=== PATIENT | female | born 1940 | race Caucasian/White ===

== ENCOUNTER 2023-11-02 13:24 | Outpatient (REF) | payer MEDICARE, SELFPAY ==
[2023-11-02 14:40] LABS: Vitamin D 25 Total 30.4 ng/mL (30-100)
== END 2023-11-02 13:25 | disposition home or self-care (01) ==
LOC: LBN 13:24
PROVIDERS: PCP Family Medicine; Visit Provider Family Medicine
DX: D50.9 Iron deficiency anemia, unspecified (principal)
CPT/HCPCS: 82306

== ENCOUNTER 2023-11-03 04:45 | Outpatient (REF) | payer MEDICARE, SELFPAY ==
[2023-11-03 04:57] LABS: Abs Immature Grans 0.09 10^3/uL (0.0-0.06); Absolute Basophil Count 0.01 10^3/uL (0.0-0.2); Absolute Eosinophil Count 0.02 10^3/uL (0.0-0.7); Absolute Lymphocyte Count 1.14 10^3/uL (1.2-3.4); Absolute Monocyte Count 0.48 10^3/uL (0.1-0.8); Absolute Neutrophil Count 2.62 10^3/uL (1.2-6.7); Basophils % 0.2 %; Eosinophils % 0.5 %; HCT 27.8 % (36.0-46.0); Immature Grans % 2.1 %; Lymphocytes % 26.1 %; MCH 31.5 pg (27.0-33.0); MCHC 32.4 % (32.0-36.0); MCV 97 fL (80-95); MPV 10.2 fL (8.0-11.0); Neutrophils % 60.1 %; Platelet Count 151 10^3/uL (130-400); RBC 2.86 10^6/uL (3.93-5.22); RDW 14.2 % (11.7-14.6); RDW-SD 50.1 fL; WBC 4.36 10^3/uL (4.4-10.8)
[2023-11-03 05:08] LABS: ALT 11 U/L (14-59); AST 9 U/L (15-37); Albumin 2.9 g/dL (3.4-5.0); Alkaline Phosphatase 66 U/L (46-116); Anion Gap 6.1 mmol/L (3-11); BUN 20 mg/dL (7-18); Bilirubin, Total 0.3 mg/dL (0.2-1.0); CO2 29.9 mmol/L (21.0-32.0); CREATININE 0.6 mg/dL (0.55-1.02); Calcium 8.5 mg/dL (8.5-10.1); Chloride 104 mmol/L (98-107); Estimated GFR 90.12 (mL/min/1.73m2); Glucose 97 mg/dL (74-106); Potassium 3.9 mmol/L (3.5-5.1); Sodium 140 mmol/L (136-145); Total Protein 5.9 g/dL (6.4-8.2)
== END 2023-11-03 04:46 | disposition home or self-care (01) ==
LOC: LBN 04:45
PROVIDERS: PCP Family Medicine; Visit Provider Nurse Practitioner Family
DX: D45 Polycythemia vera (principal); D64.9 Anemia, unspecified; D70.9 Neutropenia, unspecified; E78.5 Hyperlipidemia, unspecified
CPT/HCPCS: 80048; 80053; 80061; 84443; 85025

== ENCOUNTER 2023-12-29 20:14 | Outpatient (REF) | payer MEDICARE, SELFPAY ==
[2023-12-29 21:08] LABS: HGB 10.1 g/dL (11.2-15.7); MCH 30.8 pg (27.0-33.0); MCHC 31.6 % (32.0-36.0); MCV 98 fL (80-95); MPV 10.4 fL (8.0-11.0); Platelet Count 191 10^3/uL (130-400); RBC 3.28 10^6/uL (3.93-5.22); RDW 14.8 % (11.7-14.6); RDW-SD 53.5 fL; WBC 4.21 10^3/uL (4.4-10.8)
== END 2023-12-29 20:15 | disposition home or self-care (01) ==
LOC: LBN 20:14
PROVIDERS: PCP Family Medicine; Visit Provider Family Medicine
DX: D50.9 Iron deficiency anemia, unspecified (principal)
CPT/HCPCS: 85027

== ENCOUNTER 2024-01-04 08:47 | Outpatient (REF) | payer MEDICARE, SELFPAY ==
[2024-01-04 18:30] LABS: Bilirubin Negative (Negative); Blood Trace-intact (Negative); Clarity Cloudy (Clear); Glucose Negative (Negative); Ketones Negative (Negative); Leukocyte Esterase Large (Negative); Nitrite Negative (Negative)
[2024-01-04 18:38] LABS: Bacteria Rare HPF (Negative); Crystals Negative HPF (Negative); Epithelial Cells Rare HPF (Negative); Mucus Negative (Negative); RBC 0-2 HPF (0-2); WBC 20-50 HPF (0-5)
[2024-01-04 18:39] LABS: C & S Indicated? C&S Done As Ordered; Casts Negative LPF (Negative)
== END 2024-01-04 08:48 | disposition home or self-care (01) ==
LOC: LBN 08:47
PROVIDERS: PCP Family Medicine; Visit Provider Family Medicine
DX: R68.89 Other general symptoms and signs (principal)
CPT/HCPCS: 87077; 81003; 81015; 87086; 87186

== ENCOUNTER 2024-01-05 10:20 | Emergency (ER) | payer MEDICARE, SELFPAY ==
[2024-01-05] VITALS (21 sets, daily range): BP systolic 88–113; BP diastolic 41–68; PULSE 68–138; RESP 15–27; TEMP 36.9; O2SAT 94–98
--- NOTE | 2024-01-05 10:45 | W.ED.GENAD ---
Discharge Plan Disposition Patient Disposition: Home Condition: Stable Discharge Details Clinical Impression: Headache Primary Care Provider: Jay Jay Villatoro ED Provider: Kunal Lewis Home Meds and New Rx's Prescriptions: Continued acetaminophen 325 mg capsule 650 mg PO Q4H PRN aspirin [Adult Aspirin Regimen] 81 mg tablet,delayed release (DR/EC) 81 mg PO DAILY atorvastatin 40 mg tablet 40 mg PO DAILY ergocalciferol (vitamin D2) [Drisdol] 1,250 mcg (50,000 unit) capsule 50,000 unit PO QWEEK bisacodyl 10 mg suppository 10 mg ME DAILY PRN Enema 19-7 gram/118 mL enema 118 ml ME DAILY PRN folic acid 1 mg tablet 1,000 mcg PO DAILY furosemide 20 mg tablet 20 mg PO DAILY methotrexate 2.5 mg/mL solution 7.5 mg PO QWEEK metoprolol succinate 25 mg tablet extended release 24 hr 25 mg PO DAILY magnesium hydroxide [Milk of Magnesia] 400 mg/5 mL suspension 5 ml PO DAILY PRN polyethylene glycol 3350 [ClearLax] 17 gram/dose powder 4.25 g PO ONCE pantoprazole 40 mg tablet,delayed release (DR/EC) 40 mg PO DAILY rivaroxaban 20 mg tablet 20 mg PO DAILY Rx Instructions: must administer with evening meal sertraline 150 mg capsule 150 mg PO DAILY cyanocobalamin (vitamin B-12) 1,000 mcg capsule 1,000 mcg PO DAILY Discharge Instructions Additional Instructions: Your blood work and imaging did not show any concerning findings at this time Follow-up with your primary care provider within 1 to 2 weeks Feel more ill or have new symptoms such as high fevers or persistent vomiting return to the emergency department HPI General Mode of arrival: EMS. Date/Time Provider Initiated Documentation: 01/05/24 10:33. Limitations to Documentation: no limitations. Information obtained by: patient. History of Present Illness 83 year old F presents to the emergency department with the chief complaint of headache, described as mild, Quality is described as aching, Patient neck. Patient started experiencing this week(s) (1) and it has been constant. No relieving factors improve symptom(s), No exacerbating factors reported . Patient notes denies chest pain and shortness of breath. Patient did receive the following treatments prior to arrival, none Related Data Home Medications ?Medication ?Instructions ?Recorded ?Confirmed acetaminophen 325 mg capsule 650 mg PO Q4H PRN 01/05/24 01/05/24 aspirin 81 mg tablet,delayed 81 mg PO DAILY 01/05/24 01/05/24 release (Adult Aspirin Regimen) atorvastatin 40 mg tablet 40 mg PO DAILY 01/05/24 01/05/24 bisacodyl 10 mg rectal suppository 10 mg ME DAILY PRN 01/05/24 01/05/24 cyanocobalamin (vitamin B-12) 1,000 mcg PO DAILY 01/05/24 01/05/24 1,000 mcg capsule ergocalciferol (vitamin D2) 1,250 50,000 unit PO QWEEK 01/05/24 01/05/24 mcg (50,000 unit) capsule (Drisdol) folic acid 1 mg tablet 1,000 mcg PO DAILY 01/05/24 01/05/24 furosemide 20 mg tablet 20 mg PO DAILY 01/05/24 01/05/24 magnesium hydroxide 400 mg/5 mL 5 ml PO DAILY PRN 01/05/24 01/05/24 oral suspension (Milk of Magnesia) methotrexate 2.5 mg/mL oral 7.5 mg PO QWEEK 01/05/24 01/05/24 solution metoprolol succinate 25 mg 25 mg PO DAILY 01/05/24 01/05/24 tablet,extended release 24 hr pantoprazole 40 mg tablet,delayed 40 mg PO DAILY 01/05/24 01/05/24 release polyethylene glycol 3350 17 4.25 g PO ONCE 01/05/24 01/05/24 gram/dose oral powder (ClearLax) rivaroxaban 20 mg tablet 20 mg PO DAILY 01/05/24 01/05/24 sertraline 150 mg capsule 150 mg PO DAILY 01/05/24 01/05/24 sodium phosphates 19 gram-7 118 ml ME DAILY PRN 01/05/24 01/05/24 gram/118 mL enema (Enema) Allergies Allergy/AdvReac Type Severity Reaction Status Date / Time ampicillin Allergy Unknown Unknown Verified 01/05/24 10:45 codeine Allergy Unknown Unknown Verified 01/05/24 10:45 hydrocodone Allergy Unknown Unknown Verified 01/05/24 10:45 metoprolol Allergy Unknown Unknown Verified 01/05/24 10:45 morphine Allergy Unknown Unknown Verified 01/05/24 10:45 Penicillins Allergy Unknown Unknown Verified 01/05/24 10:45 shellfish derived Allergy Unknown Unknown Verified 01/05/24 10:45 oyster shell Allergy Unknown Unknown Uncoded 01/05/24 10:45 General Stated Complaint: Headache PIPPA: 3 Review of Systems All systems reviewed & are unremarkable except as noted in HPI and below Constitutional Constitutional: Denies chills, Denies fever(s) and Denies weakness Eyes Eyes: Denies loss of vision Cardiovascular Cardiovascular: Denies chest pain and Denies dyspnea Respiratory Respiratory: Denies cough and Denies dyspnea Gastrointestinal Gastrointestinal: Denies abdominal pain, Denies nausea and Denies vomiting Integumentary/Breasts Skin/Breast: Denies rash Neurologic Neurologic: Denies loss of vision and Denies weakness Exam Const General: no acute distress Orientation: alert HENMT Head: normal to inspection Ears: external ears normal General nose exam: external nose normal Mouth: moist mucous membranes Eyes General: appearance normal, both eyes and all related structures Neck Neck: normal visual inspection Resp Effort & Inspection: normal respiratory effort and able to speak in complete sentences Auscultation: clear to auscultation bilaterally Cardio Jugular venous pressure: no JVD Rate: regular rate GI Palpation: soft and nontender Skin General skin exam: no rashes or lesions noted Neuro General: patient alert and patient oriented x3 Extrem General: normal to inspection Psych Mental Status: mental status grossly normal Course Vital Signs Vital signs: Vital Signs Temperature 36.9 C 01/05/24 10:30 Pulse 78 01/05/24 10:30 Respiratory Rate 16 01/05/24 10:30 Blood Pressure 113/47 L 01/05/24 10:30 Pulse Oximetry 98 01/05/24 10:30 Temperature 36.9 C 01/05/24 10:30 Temperature Source Temporal Artery Scan 01/05/24 10:30 Pulse 78 01/05/24 10:30 Respiratory Rate 16 01/05/24 10:30 Respiratory Effort Normal 01/05/24 10:32 Blood Pressure 113/47 L 01/05/24 10:30 Blood Pressure Position Supine 01/05/24 10:30 Pulse Oximetry 98 01/05/24 10:30 Oxygen Delivery Method Room Air 01/05/24 10:30 Oxygen Flow Rate 0 01/05/24 10:30 Pain Level 6 01/05/24 10:38 Medical Decision Making 83-year-old female who resides at [facility] and rehab comes in with reported lethargy at rehab and also has been complaining of headaches. She says that she is in rehab but she has been having falls at home. She had a fall where she hit her head and was seen at another ER and then was transferred to rehab once stable. She says the headache is mild and localized to the front of her head. She also has some right lateral neck pain. She has no meningismus, no's neck stiffness, no signs of trauma to the head. She has no focal deficits, she does have some right-sided facial droop but she says that this is chronic and unchanged for her. Her speech is clear. She is oriented x 3. She has no chest pain or abdominal pain. Pain is not the worst in her life. I suspect tension headache or postconcussion headaches. Will obtain CT head and C-spine to exclude traumatic findings. She has no findings on exam or history to suggest [employer] infection. Given the reported lethargy earlier we will check a CBC and CMP. Labs and imaging show no acute findings, she is now asymptomatic and has no complaints. She is stable for discharge advised follow-up with PCP and return precautions given. Differential Diagnosis Differential Diagnosis: Tension headache, hemorrhage, anemia Imaging Data Radiologic Study: Attestation: I personally reviewed and interpreted this imaging study as follows: Imaging: X-Ray Radiologist's impression: no acute findings Lab Data Lab results reviewed: Yes I reviewed the patient's lab results. Quality:[facility] Health Related Social Needs: No Data to Display PFSH All Active Problems (Updated 01/05/24 @ 12:33 by Kunal Lewis MD) Headache (Acute) Social History Smoking/Tobacco Use Status: Never Smoking risk assessment performed?: Yes Alcohol Intake: former Drug use: Never Substance use type: does not use Housing: apartment Do you feel safe at home: Yes Do you feel safe in your relationship?: Yes
--- NOTE | 2024-01-05 11:10 | DI.CT_ITS ---
Exam(s) CT HEAD CERVICAL SPINE WO EXAM: CT HEAD CERVICAL SPINE WO CLINICAL HISTORY: fall, pain. TECHNIQUE: Imaging Protocol: Axial computed tomography images with coronal and sagittal reformatted images were created and reviewed COMPARISON: No exams were available for comparison FINDINGS: CT Head: Ventricles and Extra axial spaces: Normal in size and morphology for the patient's age. Hemorrhage: None. Cerebral parenchyma: There are areas of decreased attenuation in the white matter consistent with chr onic microvascular ischemic disease. No evidence of a mass effect or acute territorial infarct are s een at this time. Midline shift: None. Brainstem/Cerebellum: Normal. Calvarium: Normal. Visualized Paranasal sinuses/Mastoids: Clear. Soft Tissues: Unremarkable. CT Cervical Spine: Bones: No acute fracture or subluxation. Age-appropriate degenerative changes are present. Soft Tissues: Multiple nodules are seen in the right lobe of the thyroid gland. The largest measures 1.3 cm. Nonemergent thyroid ultrasound may be obtained for further evaluation. Lung Apices: Clear. IMPRESSION: 1. No acute intracranial process. 2. No acute fracture or subluxation in the cervical spine. RADIATION DOSE DELIVERED: Total DLP DATA REPOSITORY: All CT scans at this facility are submitted to the National Radiology Data Registry (NRDR) Dose Index Registry (DIR) with the [employer] (A[employer]). RADIATION OPTIMIZATION: All CT scans at this facility use at least one of these dose optimization te chniques: automated exposure control; mA and/or kV adjustment per patient size (includes targeted exa ms where dose is matched to clinical indication); or iterative reconstruction.
[2024-01-05 11:48] LABS: Abs Immature Grans 0.06 10^3/uL (0.0-0.06); Absolute Basophil Count 0.01 10^3/uL (0.0-0.2); Absolute Eosinophil Count 0.03 10^3/uL (0.0-0.7); Absolute Lymphocyte Count 0.72 10^3/uL (1.2-3.4); Absolute Monocyte Count 0.26 10^3/uL (0.1-0.8); Absolute Neutrophil Count 2.58 10^3/uL (1.2-6.7); Basophils % 0.3 %; Eosinophils % 0.8 %; HCT 31.8 % (36.0-46.0); HGB 9.9 g/dL (11.2-15.7); Immature Grans % 1.6 %; Lymphocytes % 19.7 %; MCH 30.6 pg (27.0-33.0); MCHC 31.1 % (32.0-36.0); MCV 98 fL (80-95); MPV 9.9 fL (8.0-11.0); Monocytes % 7.1 %; Neutrophils % 70.5 %; Platelet Count 153 10^3/uL (130-400); RBC 3.24 10^6/uL (3.93-5.22); RDW 15.1 % (11.7-14.6); RDW-SD 53.5 fL; WBC 3.66 10^3/uL (4.4-10.8)
[2024-01-05 12:21] LABS: ALT 16 U/L (14-59); AST 12 U/L (15-37); Albumin 3.4 g/dL (3.4-5.0); Alkaline Phosphatase 79 U/L (46-116); Anion Gap 7.6 mmol/L (3-11); BUN 22 mg/dL (7-18); Bilirubin, Total 0.39 mg/dL (0.2-1.0); CO2 30.4 mmol/L (21.0-32.0); CREATININE 0.9 mg/dL (0.55-1.02); Calcium 9.1 mg/dL (8.5-10.1); Chloride 106 mmol/L (98-107); Estimated GFR 64.23 (mL/min/1.73m2); Glucose 114 mg/dL (74-106); Magnesium 1.9 mg/dL (1.8-2.4); Potassium 3.6 mmol/L (3.5-5.1); Sodium 144 mmol/L (136-145); Total Protein 7.3 g/dL (6.4-8.2)
== END 2024-01-05 13:02 | disposition home or self-care (01) ==
PROVIDERS: Emergency Provider Emergency Medicine; PCP Family Medicine
DX: R51.9 Headache, unspecified (principal); M54.2 Cervicalgia; Z79.01 Long term (current) use of anticoagulants; Z79.82 Long term (current) use of aspirin
CPT/HCPCS: 80053; 99284; 70450; 72125; 83735; 85025; 99283

== ENCOUNTER 2024-01-05 15:11 | Emergency (ER) | payer MEDICARE, SELFPAY ==
[2024-01-05 15:13] VITALS: BP 129/110; PULSE 68; RESP 20; TEMP 36; O2SAT 97
--- NOTE | 2024-01-05 15:15 | DI.MRI_ITS ---
Exam(s) MR BRAIN WO EXAM: MR BRAIN WO CLINICAL HISTORY: ?cva TECHNIQUE: Multiplanar multisequence MRI of the brain was performed. COMPARISON: CT CT HEAD CERVICAL SPINE WO from 01/05/2024 FINDINGS: CEREBRAL PARENCHYMA: There is no evidence of intracranial hemorrhage, mass effect, or shift of midline structures. There are no extra-axial fluid collections. Ventricular size is commensurate with the size of the overlyin g cortical sulci in this elderly patient/symmetrical atrophy. There is no significant focal signal abnormality in the cerebellar hemispheres nor within the alfonso, m idbrain, and thalami. There is abundant bilateral periventricular signal abnormality consistent chronic small vessel diseas e, this not exhibiting restricted diffusion. However, there is also relatively symmetrical FLAIR juno ght signal abnormality of the cortices of the frontal and parietal lobes bilaterally, these areas als o exhibiting restricted diffusion bilaterally on DWI. PITUITARY GLAND: No mass nor parasellar abnormality. No obvious abnormality in the cavernous sinuses. FLOW VOIDS: The expected flow void are noted. No evidence of obvious aneurysm nor obvious vascular ma lformation. PARANASAL SINUSES: No significant acute findings. Mild mucous noted in the left sphenoid sinus. No fluid levels in the paranasal sinuses nor evidence of mastoid effusions. ORBITS: Bilateral prior cataract surgery. No acute findings in the orbits. IMPRESSION: Relative symmetrical gyriform peripheral restricted diffusion both frontal and parietal lobes concern ing for acute atypical pathology. Causes of gyriform restricted diffusion include but are not limite d to vascular occlusion and may be related to metabolic (hypoglycemia/hyperammonemia) and infectious etiologies such as herpes encephalitis. Also may be related to hypoxic-ischemic encephalopathy which is usually a devastating neurologic condition caused by a myriad of etiologies including cardiac arr est, hypotension, trauma, drowning, and asphyxiation. Report called by myself to ER physician 01/05/2024 4:35 p.m. DATA REPOSITORY:
--- NOTE | 2024-01-05 15:22 | ED.GENADUL_ITS ---
Discharge Plan Discharge Details Chief Complaint: CVA/TIA Clinical Impression: Unsteadiness Primary Care Provider: Jay Jay Villatoro ED Provider: Kunal Lewis Home Meds and New Rx's Prescriptions: No Action acetaminophen 325 mg capsule 650 mg PO Q4H PRN aspirin [Adult Aspirin Regimen] 81 mg tablet,delayed release (DR/EC) 81 mg PO DAILY atorvastatin 40 mg tablet 40 mg PO DAILY ergocalciferol (vitamin D2) [Drisdol] 1,250 mcg (50,000 unit) capsule 50,000 unit PO QWEEK bisacodyl 10 mg suppository 10 mg [place] DAILY PRN Enema 19-7 gram/118 mL enema 118 ml [place] DAILY PRN folic acid 1 mg tablet 1,000 mcg PO DAILY furosemide 20 mg tablet 20 mg PO DAILY methotrexate 2.5 mg/mL solution 7.5 mg PO QWEEK metoprolol succinate 25 mg tablet extended release 24 hr 25 mg PO DAILY magnesium hydroxide [Milk of Magnesia] 400 mg/5 mL suspension 5 ml PO DAILY PRN polyethylene glycol 3350 [ClearLax] 17 gram/dose powder 4.25 g PO ONCE pantoprazole 40 mg tablet,delayed release (DR/EC) 40 mg PO DAILY rivaroxaban 20 mg tablet 20 mg PO DAILY Rx Instructions: must administer with evening meal sertraline 150 mg capsule 150 mg PO DAILY cyanocobalamin (vitamin B-12) 1,000 mcg capsule 1,000 mcg PO DAILY HPI General Mode of arrival: EMS . Date/Time Provider Initiated Documentation: 01/05/24 15:11 . Information obtained by: patient and EMS . History of Present Illness 83 year old F presents to the emergency department with the chief complaint of unsteadiness, described as moderate, and it has been constant. No relieving factors improve symptom(s), No exacerbating factors reported . Patient notes no other symptoms.; denies chest pain and fever/chills. Patient did receive the following treatments prior to arrival, none Related Data Home Medications ?Medication ?Instructions ?Recorded ?Confirmed acetaminophen 325 mg capsule 650 mg PO Q4H PRN 01/05/24 01/05/24 aspirin 81 mg tablet,delayed 81 mg PO DAILY 01/05/24 01/05/24 release (Adult Aspirin Regimen) atorvastatin 40 mg tablet 40 mg PO DAILY 01/05/24 01/05/24 bisacodyl 10 mg rectal suppository 10 mg [place] DAILY PRN 01/05/24 01/05/24 cyanocobalamin (vitamin B-12) 1,000 mcg PO DAILY 01/05/24 01/05/24 1,000 mcg capsule ergocalciferol (vitamin D2) 1,250 50,000 unit PO QWEEK 01/05/24 01/05/24 mcg (50,000 unit) capsule (Drisdol) folic acid 1 mg tablet 1,000 mcg PO DAILY 01/05/24 01/05/24 furosemide 20 mg tablet 20 mg PO DAILY 01/05/24 01/05/24 magnesium hydroxide 400 mg/5 mL 5 ml PO DAILY PRN 01/05/24 01/05/24 oral suspension (Milk of Magnesia) methotrexate 2.5 mg/mL oral 7.5 mg PO QWEEK 01/05/24 01/05/24 solution metoprolol succinate 25 mg 25 mg PO DAILY 01/05/24 01/05/24 tablet,extended release 24 hr pantoprazole 40 mg tablet,delayed 40 mg PO DAILY 01/05/24 01/05/24 release polyethylene glycol 3350 17 4.25 g PO ONCE 01/05/24 01/05/24 gram/dose oral powder (ClearLax) rivaroxaban 20 mg tablet 20 mg PO DAILY 01/05/24 01/05/24 sertraline 150 mg capsule 150 mg PO DAILY 01/05/24 01/05/24 sodium phosphates 19 gram-7 118 ml [place] DAILY PRN 01/05/24 01/05/24 gram/118 mL enema (Enema) Allergies Allergy/AdvReac Type Severity Reaction Status Date / Time ampicillin Allergy Unknown Unknown Verified 01/05/24 10:45 codeine Allergy Unknown Unknown Verified 01/05/24 10:45 hydrocodone Allergy Unknown Unknown Verified 01/05/24 10:45 metoprolol Allergy Unknown Unknown Verified 01/05/24 10:45 morphine Allergy Unknown Unknown Verified 01/05/24 10:45 Penicillins Allergy Unknown Unknown Verified 01/05/24 10:45 shellfish derived Allergy Unknown Unknown Verified 01/05/24 10:45 oyster shell Allergy Unknown Unknown Uncoded 01/05/24 10:45 General Stated Complaint: CVA/TIA PIPPA: 3 Review of Systems All systems reviewed & are unremarkable except as noted in HPI and below Constitutional Constitutional: Denies chills and Denies fever(s) Eyes Eyes: Denies loss of vision Cardiovascular Cardiovascular: Denies chest pain and Denies dyspnea Respiratory Respiratory: Denies cough and Denies dyspnea Gastrointestinal Gastrointestinal: Denies abdominal pain, Denies nausea and Denies vomiting Musculoskeletal Musculoskeletal: Denies joint swelling Neurologic Neurologic: Denies loss of vision Exam Const General: no acute distress Orientation: alert HENMT Head: normal to inspection Ears: external ears normal General nose exam: external nose normal Mouth: moist mucous membranes Eyes General: appearance normal, both eyes and all related structures Neck Neck: normal visual inspection Resp Effort & Inspection: normal respiratory effort and able to speak in complete sentences Cardio Rate: regular rate Skin General skin exam: no rashes or lesions noted Neuro General: patient alert and patient oriented x3 Extrem General: normal to inspection Psych Mental Status: mental status grossly normal Course Vital Signs Vital signs: Vital Signs Temperature 36.0 C L 01/05/24 15:13 Pulse 68 01/05/24 15:13 Respiratory Rate 20 01/05/24 15:13 Blood Pressure 129/110 H 01/05/24 15:13 Pulse Oximetry 97 01/05/24 15:13 Temperature 36.0 C L 01/05/24 15:13 Temperature Source Tympanic 01/05/24 15:13 Pulse 68 01/05/24 15:13 Respiratory Rate 20 01/05/24 15:13 Blood Pressure 129/110 H 01/05/24 15:13 Blood Pressure Position Sitting 01/05/24 15:13 Pulse Oximetry 97 01/05/24 15:13 Oxygen Delivery Method Room Air 01/05/24 15:13 Oxygen Flow Rate 0 01/05/24 15:13 Medical Decision Making 83-year-old female with a history of heart failure with reduced ejection fraction, COPD, coronary artery disease, rheumatoid arthritis, A-fib, PE, who comes in with EMS from rehab again with complaints of unsteadiness. Patient has chronic issues with unsteadiness and falls and now resides at [facility] and rehab due to this. They were concerned that she may have had a stroke as she has had 3 days of increased unsteadiness so sent her here. Patient currently denies any pain, she says she feels unsteady when she tries to stand with is not new for her. She does have ataxia when trying to do [id number] but she says she does not believe this is a new finding for her. I doubt acute cva given it seems her findings are chronic based on chart review but will evaluate further with MRI MRI shows restrictive diffusion of bilateral frontal and parietal lobes. She is stable, has no fevers and no meningismus so doubt striker off infection and she is anticoagulated so unfortunately can't do an LP. Will have neurology consult done. Differential Diagnosis Differential Diagnosis: chronic unsteadiness, recurrent falls, cva Imaging Data Radiologic Study: Attestation: I personally reviewed and interpreted this imaging study as follows: Imaging: MRI Radiologist's impression: Patient Name: Kaitlin Mendenhall Unit #: [id number] Loc: ER Ordering Provider: Kunal Lewis M.D. Status: [facility] Primary Care Provider: Jay Jay Villatoro Date of Exam: 01/05/24 Sex: F Admission Date: 01/05/24 : 1940 Age: 83 Exam(s) MR BRAIN WO EXAM: MR BRAIN WO CLINICAL HISTORY: ?cva TECHNIQUE: Multiplanar multisequence MRI of the brain was performed. COMPARISON: CT CT HEAD CERVICAL SPINE WO from 01/05/2024 FINDINGS: CEREBRAL PARENCHYMA: There is no evidence of intracranial hemorrhage, mass effect, or shift of midline structures. There are no extra-axial fluid collections. Ventricular size is commensurate with the size of the overlying cortical sulci in this elderly patient/symmetrical atrophy. There is no significant focal signal abnormality in the cerebellar hemispheres nor within the alfonso, midbrain, and thalami. There is abundant bilateral periventricular signal abnormality consistent chronic small vessel disease, this not exhibiting restricted diffusion. However, there is also relatively symmetrical FLAIR bright signal abnormality of the cortices of the frontal and parietal lobes bilaterally, these areas also exhibiting restricted diffusion bilaterally on DWI. PITUITARY GLAND: No mass nor parasellar abnormality. No obvious abnormality in the cavernous sinuses. FLOW VOIDS: The expected flow void are noted. No evidence of obvious aneurysm nor obvious vascular malformation. PARANASAL SINUSES: No significant acute findings. Mild mucous noted in the left sphenoid sinus. No fluid levels in the paranasal sinuses nor evidence of mastoid effusions. ORBITS: Bilateral prior cataract surgery. No acute findings in the orbits. IMPRESSION: Relative symmetrical gyriform peripheral restricted diffusion both frontal and parietal lobes concerning for acute atypical pathology. Causes of gyriform restricted diffusion include but are not limited to vascular occlusion and may be related to metabolic (hypoglycemia/hyperammonemia) and infectious etiologies such as herpes encephalitis. Also may be related to hypoxic-ischemic encephalopathy which is usually a devastating neurologic condition caused by a myriad of etiologies including cardiac arrest, hypotension, trauma, drowning, and asphyxiation. Quality:[facility] Health Related Social Needs: No Data to Display PFSH All Active Problems (Updated 01/05/24 @ 16:50 by Kunal Lewis MD) Unsteadiness (Acute) Headache (Acute) Social History Smoking/Tobacco Use Status: Never Smoking risk assessment performed?: Yes Alcohol Intake: former Drug use: Never Substance use type: does not use Housing: apartment Do you feel safe at home: Yes Do you feel safe in your relationship?: Yes
[2024-01-05 15:36] VITALS: O2SAT 94
[2024-01-05 15:46] VITALS: BP 108/49; PULSE 63
[2024-01-05 16:40] VITALS: BP 122/75; PULSE 67; TEMP 37; O2SAT 98
--- NOTE | 2024-01-05 18:27 | ED.PROG_ITS ---
Date of service: 01/05/24 Time of Service: 18:27 Medical Decision Making Patient signed out to me pending teleneurology evaluation. Patient with reported increased frequency and falling but has history of same. Was seen earlier in the day with negative head CT and labs. Was sent back by [facility] provider who had concerns for cerebellum stroke. MRI was performed. There was concern for restricted diffusion in the frontal and parietal lobes bilaterally. No evidence of cerebellar or brainstem abnormality. Patient has been seen by neurology. Discussed case, exam findings, imaging findings with neurologist. Patient has NIH score of 0. MRI findings were not felt to be related to acute injury. Recommend return to rehab with continued PT and strengthening in regards to gait, follow-up with neurology locally as outpatient. Patient will be returned to rehab. Quality:SDHI Health Related Social Needs: No Data to Display Sign Out Sign Out Data: Sign Out Comment: Patient resides at rehab, has A-fib on rivaroxaban is already on aspirin per med reconciliation, has had increased unsteadiness over the last 3 days and had a fall [address] head and C-spine were negative, had an MRI due to increased unsteadiness and question new ataxia with finger-nose touch which showed restrictive bilateral findings in the frontal and parietal lobes. Nothing in the brainstem. Having teleneurology weigh in. Disposition based on neurology recs. Last updated by Kunal Lewis MD at 01/05/24 16:57 Discharge Plan Disposition Patient Disposition: [facility] Discharge Details Clinical Impression: Unsteadiness, Frequent falls, Abnormal MRI of head Primary Care Provider: Jay Jay Villatoro ED Provider: Kp Mustafa Goessel Meds and New Rx's Prescriptions: Continued acetaminophen 325 mg capsule 650 mg PO Q4H PRN aspirin [Adult Aspirin Regimen] 81 mg tablet,delayed release (DR/EC) 81 mg PO DAILY atorvastatin 40 mg tablet 40 mg PO DAILY ergocalciferol (vitamin D2) [Drisdol] 1,250 mcg (50,000 unit) capsule 50,000 unit PO QWEEK bisacodyl 10 mg suppository 10 mg SD DAILY PRN Enema 19-7 gram/118 mL enema 118 ml SD DAILY PRN folic acid 1 mg tablet 1,000 mcg PO DAILY furosemide 20 mg tablet 20 mg PO DAILY methotrexate 2.5 mg/mL solution 7.5 mg PO QWEEK metoprolol succinate 25 mg tablet extended release 24 hr 25 mg PO DAILY magnesium hydroxide [Milk of Magnesia] 400 mg/5 mL suspension 5 ml PO DAILY PRN polyethylene glycol 3350 [ClearLax] 17 gram/dose powder 4.25 g PO ONCE pantoprazole 40 mg tablet,delayed release (DR/EC) 40 mg PO DAILY rivaroxaban 20 mg tablet 20 mg PO DAILY Rx Instructions: must administer with evening meal sertraline 150 mg capsule 150 mg PO DAILY cyanocobalamin (vitamin B-12) 1,000 mcg capsule 1,000 mcg PO DAILY Discharge Instructions Additional Instructions: You had a brain MRI which shows changes in the frontal and parietal lobes but no evidence of stroke. You were seen by neurology via video. Your case has been discussed with neurology. Recommendation is to return to rehab for further strengthening and gait training. Follow-up with local neurology in regards to MRI findings. Return to ED for any acute neurologic change, fall with injury, other concerns.
[2024-01-05 18:31] VITALS: BP 109/87; PULSE 87; RESP 18; TEMP 36.5; O2SAT 97
== END 2024-01-05 19:28 | disposition skilled nursing facility (03) ==
PROVIDERS: Emergency Provider Emergency Medicine; PCP Family Medicine
DX: R26.81 Unsteadiness on feet (principal); J44.9 Chronic obstructive pulmonary disease, unspecified; I25.10 Atherosclerotic heart disease of native coronary artery without angina pectoris; M06.9 Rheumatoid arthritis, unspecified; I48.91 Unspecified atrial fibrillation; R29.700 NIHSS score 0; Z86.711 Personal history of pulmonary embolism; Z79.01 Long term (current) use of anticoagulants; Z79.82 Long term (current) use of aspirin
CPT/HCPCS: 00123; 99284; 70551

== ENCOUNTER 2024-03-15 14:26 | Inpatient (IN) | payer MEDICARE, SELFPAY ==
[2024-03-15] VITALS (40 sets, daily range): BP systolic 110–158; BP diastolic 46–109; PULSE 70–96; RESP 13–23; TEMP 36.1–36.8; O2SAT 95–100
--- NOTE | 2024-03-15 14:29 | W.ED.GENAD ---
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 Primary Care Provider: Jay Jay Villatoro ED Provider: William Lewis Home Meds and New Rx's Prescriptions: No Action acetaminophen 325 mg capsule 650 mg PO Q4H PRN aspirin [Adult Aspirin Regimen] 81 mg tablet,delayed release (DR/EC) 81 mg PO DAILY atorvastatin 40 mg tablet 40 mg PO DAILY ergocalciferol (vitamin D2) [Drisdol] 1,250 mcg (50,000 unit) capsule 50,000 unit PO QWEEK bisacodyl 10 mg suppository 10 mg MA DAILY PRN Enema 19-7 gram/118 mL enema 118 ml MA DAILY PRN folic acid 1 mg tablet 1,000 mcg PO DAILY furosemide 20 mg tablet 20 mg PO DAILY methotrexate 2.5 mg/mL solution 7.5 mg PO QWEEK metoprolol succinate 25 mg tablet extended release 24 hr 25 mg PO DAILY magnesium hydroxide [Milk of Magnesia] 400 mg/5 mL suspension 5 ml PO DAILY PRN polyethylene glycol 3350 [ClearLax] 17 gram/dose powder 4.25 g PO ONCE pantoprazole 40 mg tablet,delayed release (DR/EC) 40 mg PO DAILY rivaroxaban 20 mg tablet 20 mg PO DAILY Rx Instructions: must administer with evening meal sertraline 150 mg capsule 150 mg PO DAILY cyanocobalamin (vitamin B-12) 1,000 mcg capsule 1,000 mcg PO DAILY HPI General Date/Time Provider Initiated Documentation: 03/15/24 14:28. HPI Narrative: 83-year-old female with a history of heart failure with reduced ejection fraction, COPD, coronary artery disease, rheumatoid arthritis, A-fib, PE on rivaroxaban presents with low hemoglobin. She is coming from rehab. She is apparently telling me that she has had a few episodes of bloody stools over the last month and darker stools. She had outpatient labs done today that showed a low blood count. She denies any other bleeding. Still taking a blood thinner and rivaroxaban. Denying any other complaints. She otherwise feels well. Related Data Home Medications ?Medication ?Instructions ?Recorded ?Confirmed acetaminophen 325 mg capsule 650 mg PO Q4H PRN 01/05/24 03/15/24 aspirin 81 mg tablet,delayed 81 mg PO DAILY 01/05/24 03/15/24 release (Adult Aspirin Regimen) atorvastatin 40 mg tablet 40 mg PO DAILY 01/05/24 03/15/24 bisacodyl 10 mg rectal suppository 10 mg MA DAILY PRN 01/05/24 03/15/24 cyanocobalamin (vitamin B-12) 1,000 mcg PO DAILY 01/05/24 03/15/24 1,000 mcg capsule ergocalciferol (vitamin D2) 1,250 50,000 unit PO QWEEK 01/05/24 03/15/24 mcg (50,000 unit) capsule (Drisdol) folic acid 1 mg tablet 1,000 mcg PO DAILY 01/05/24 03/15/24 furosemide 20 mg tablet 20 mg PO DAILY 01/05/24 03/15/24 magnesium hydroxide 400 mg/5 mL 5 ml PO DAILY PRN 01/05/24 03/15/24 oral suspension (Milk of Magnesia) methotrexate 2.5 mg/mL oral 7.5 mg PO QWEEK 01/05/24 03/15/24 solution metoprolol succinate 25 mg 25 mg PO DAILY 01/05/24 03/15/24 tablet,extended release 24 hr pantoprazole 40 mg tablet,delayed 40 mg PO DAILY 01/05/24 03/15/24 release polyethylene glycol 3350 17 4.25 g PO ONCE 01/05/24 03/15/24 gram/dose oral powder (ClearLax) rivaroxaban 20 mg tablet 20 mg PO DAILY 01/05/24 03/15/24 sertraline 150 mg capsule 150 mg PO DAILY 01/05/24 03/15/24 sodium phosphates 19 gram-7 118 ml MA DAILY PRN 01/05/24 03/15/24 gram/118 mL enema (Enema) Allergies Allergy/AdvReac Type Severity Reaction Status Date / Time ampicillin Allergy Unknown Unknown Verified 01/05/24 10:45 codeine Allergy Unknown Unknown Verified 01/05/24 10:45 hydrocodone Allergy Unknown Unknown Verified 01/05/24 10:45 metoprolol Allergy Unknown Unknown Verified 01/05/24 10:45 morphine Allergy Unknown Unknown Verified 01/05/24 10:45 Penicillins Allergy Unknown Unknown Verified 01/05/24 10:45 shellfish derived Allergy Unknown Unknown Verified 01/05/24 10:45 oyster shell Allergy Unknown Unknown Uncoded 01/05/24 10:45 General Stated Complaint: Dizzy/Sync PIPPA: 3 Review of Systems Constitutional Constitutional: Denies chills, Denies fever(s) and Denies headache(s) Eyes Eyes: Denies change in vision ENT Ears, Nose, Mouth, and Throat: Denies headache(s) and Denies odynophagia Cardiovascular Cardiovascular: Denies chest pain and Denies dyspnea Respiratory Respiratory: Denies dyspnea Gastrointestinal Gastrointestinal: Denies abdominal pain, Reports hematochezia, Denies diarrhea, Denies nausea, Denies odynophagia and Denies vomiting Genitourinary Genitourinary: Denies dysuria Musculoskeletal Musculoskeletal: Denies myalgias Integumentary/Breasts Skin/Breast: Denies changing lesions Neurologic Neurologic: Denies behavioral changes and Denies headache(s) Psychiatric Psychiatric: Denies behavioral changes Endocrine Endocrine: Denies heat intolerance Hematologic/Lymphatic Hematologic/Lymphatic: Denies lymphadenopathy Exam Const General: cooperative Nutritional Appearance: average body habitus Orientation: alert, awake and oriented x3 HENMT Head: normal to inspection Ears: external ears normal Mouth: moist mucous membranes Eyes Pupils: PERRL EOM: EOM intact bilaterally and No nystagmus Neck Neck: full ROM and no tracheal deviation Chest Chest: normal inspection of the chest Resp Auscultation: clear to auscultation bilaterally Cardio Rate: regular rate Rhythm: regular rhythm GI Inspection: normal to inspection Palpation: soft, no guarding, not rigid and nontender Back/Spine/Pelvis Back: No no CVA tenderness Thoracic/Lumbar Spine: thoracic and lumbar spine normal to inspection Skin General skin exam: no rashes or lesions noted Neuro General: patient alert, patient awake and patient oriented x3 Cranial Nerves: CN's II-XI intact bilaterally, PERRL and no nystagmus Cognition: normal cognition Motor: muscle tone normal throughout and strength 5/5 throughout Sensory Exam: no sensory deficits noted Extrem General: normal to inspection Course Consultations Consultation #1: surgery dr reina el Consultation #2: hospitalist Vital Signs Vital signs: Vital Signs Temperature 36.6 C 03/15/24 14:25 Pulse 88 03/15/24 14:25 Respiratory Rate 15 03/15/24 14:25 Blood Pressure 125/57 L 03/15/24 14:25 Pulse Oximetry 100 10/03/24 14:25 Temperature 36.6 C 03/15/24 14:25 Temperature Source Oral 03/15/24 14:25 Pulse 88 03/15/24 14:25 Respiratory Rate 15 03/15/24 14:25 Blood Pressure 125/57 L 03/15/24 14:25 Blood Pressure Position Sitting 03/15/24 14:25 Pulse Oximetry 100 03/15/24 14:25 Oxygen Delivery Method Room Air 03/15/24 14:25 Oxygen Flow Rate 0 03/15/24 14:25 Medical Decision Making 83-year-old female with a history of heart failure with reduced ejection fraction, COPD, coronary artery disease, rheumatoid arthritis, A-fib, PE on rivaroxaban presents with low hemoglobin. Reviewed outpatient labs and hemoglobin to 6.1. Confirmed with repeat hemoglobin here. She does not have any history of bleeding other than the intermittent medic easier. None recently. Performed rectal exam and has brown stool that is Hemoccult positive. Labs otherwise unremarkable. EKG is unremarkable. Vital signs are stable and patient otherwise well-appearing. Could be secondary to her blood thinner. No abdominal tenderness or abdominal pain or other complaints presently to warrant CT imaging of the abdomen at this time. Will speak to the hospitalist to consider admission. 427pm Spoke to hospitalist who is agreeable to admission. Spoke to surgeon Dr. Reina Le who agrees with plan of care and will see the patient. Care transitioned to the hospitalist team. Lab Data Lab results reviewed: Yes I reviewed the patient's lab results. Lab results narrative: Significant anemia new and worsening from prior. Otherwise labs unremarkable. ECG Data Interpretation: Sinus rhythm with no ischemic changes. Otherwise unremarkable EKG. Normal rate. Similar to prior EKG. Quality:SDOH Health Related Social Needs: No Data to Display PFSH All Active Problems (Updated 03/15/24 @ 16:31 by William Lewis MD) Hx of half-way use of blood thinners (Acute) GI bleed (Chronic) Anemia (Chronic) Social History Smoking/Tobacco Use Status: Never Smoking risk assessment performed?: Yes Alcohol Intake: former Drug use: Never Substance use type: does not use Housing: apartment Do you feel safe at home: Yes Do you feel safe in your relationship?: Yes
--- NOTE | 2024-03-15 14:30 | RT.EKG_ITS ---
APPROVED REPORT Exam: Resting ECG Reason for Exam: dizziness Patient Location: E HR:79 bpm ECG Measurements Heart Rate 79 AXIS MA 175 P 0 QRSd 127 QRS 58 QT 424 T 254 QTc 486 Conclusion Sinus rhythm...normal P axis, V-rate 60- 99 Left bundle branch block...QRSd>120, broad/notched R ST elevation secondary to IVCD...Multiple VCG criteria
[2024-03-15 14:57] LABS: Abs Immature Grans 0.04 10^3/uL (0.0-0.06); Absolute Eosinophil Count 0.02 10^3/uL (0.0-0.7); Absolute Monocyte Count 0.37 10^3/uL (0.1-0.8); Absolute Neutrophil Count 1.92 10^3/uL (1.2-6.7); Eosinophils % 0.6 %; HCT 21.4 % (36.0-46.0); Immature Grans % 1.2 %; Lymphocytes % 31.9 %; MCH 26.6 pg (27.0-33.0); MCV 92 fL (80-95); Monocytes % 10.7 %; Neutrophils % 55.6 %; Platelet Count 169 10^3/uL (130-400); RBC 2.33 10^6/uL (3.93-5.22); RDW-SD 55.8 fL; WBC 3.45 10^3/uL (4.4-10.8)
[2024-03-15 14:59] LABS: HGB 6.2 g/dL (11.2-15.7)
[2024-03-15 15:16] LABS: ALT 15 U/L (14-59); AST 10 U/L (15-37); Albumin 3.4 g/dL (3.4-5.0); Alkaline Phosphatase 83 U/L (46-116); Anion Gap 3.4 mmol/L (3-11); BUN 22 mg/dL (7-18); Bilirubin, Total 0.29 mg/dL (0.2-1.0); CO2 32.6 mmol/L (21.0-32.0); CREATININE 0.7 mg/dL (0.55-1.02); Calcium 9.3 mg/dL (8.5-10.1); Chloride 103 mmol/L (98-107); Estimated GFR 86.83 (mL/min/1.73m2); Glucose 79 mg/dL (74-106); Potassium 3.8 mmol/L (3.5-5.1); Sodium 139 mmol/L (136-145); Total Protein 7.2 g/dL (6.4-8.2); Troponin I 9 ng/L (<or=51)
--- NOTE | 2024-03-15 16:14 | HPE_ITS ---
Date of service: 03/15/24 Time of Service: 16:14 Assessment and Plan Assessment and plan (1) GI bleed: Status: Chronic Assessment and plan: PPI PRBC X2 Clears H&H s/p blood transfusion tonight CBC in AM (2) Anemia: Status: Chronic Assessment and plan: As above (3) Atrial fibrillation: Status: Chronic Assessment and plan: Continue metoprolol Hold Rivaroxaban and ASA PAIGE for DVT prophylaxis (4) Pulmonary emboli: Status: Chronic Assessment and plan: History of PE on rivaroxaban Will hold for now - awaiting 48 hours no bleeding to consider restarting Discussed with Dr. Dupont History of Present Illness History of Present Illness Chief Complaint: Gastrointestinal bleeding N arrative: 83-year-old female with a history of heart failure with reduced ejection fraction, COPD, coronary artery disease, rheumatoid arthritis, A-fib on rivaroxaban, PE, who comes in with EMS from rehab with c/o GI bleed. On arrival to the ED the patient reported a few episodes of bloody stools over the last month with darker stools. Outpatient labs completed showed an H&H of 6.1 and 20.8 .The work up in the ED was significant for H&H 6.1 and 20.8, BUN was 22. Hemoccult on stool obtained during rectal rectal exam was positive. Surgery was also completed with no surgical intervention deemed necessary at the time. Hospitalist was consulted and patient admitted to the medical surgical floor for gastrointestinal bleed and anemia. The plan was to initiate transfusion of 2 units of PRBC in the emergency room. When seen the patient reported feeling dizzy, lightheaded with blurry vision and seeing spots in front of her eyes, epigastric pain the day prior to presentation and feeling tired. The patient denied chest pain, shortness of breath, hematemesis, nausea, vomiting, diarrhea, or dysuria. The patient confirmed that she does not want CPR or intubation, thus the patient is a DNR/DNI. 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 (Acute) GI bleed (Chronic) Anemia (Chronic) Social History Smoking/Tobacco Use Status: Never Smoking risk assessment performed?: Yes Alcohol Intake: former Drug use: Never Substance use type: does not use Housing: alf Do you feel safe at home: Yes Do you feel safe in your relationship?: Yes Meds Allergies and Home Medications Allergies Allergy/AdvReac Type Severity Reaction Status Date / Time ampicillin Allergy Unknown Unknown Verified 01/05/24 10:45 codeine Allergy Unknown Unknown Verified 01/05/24 10:45 hydrocodone Allergy Unknown Unknown Verified 01/05/24 10:45 metoprolol Allergy Unknown Unknown Verified 01/05/24 10:45 morphine Allergy Unknown Unknown Verified 01/05/24 10:45 Penicillins Allergy Unknown Unknown Verified 01/05/24 10:45 shellfish derived Allergy Unknown Unknown Verified 01/05/24 10:45 oyster shell Allergy Unknown Unknown Uncoded 01/05/24 10:45 Home Medications ?Medication ?Instructions ?Recorded ?Confirmed ?Type acetaminophen 325 mg capsule 650 mg PO Q4H PRN 01/05/24 03/15/24 History aspirin 81 mg tablet,delayed 81 mg PO DAILY 01/05/24 03/15/24 History release (Adult Aspirin Regimen) atorvastatin 40 mg tablet 40 mg PO DAILY 01/05/24 03/15/24 History bisacodyl 10 mg rectal suppository 10 mg VT DAILY PRN 01/05/24 03/15/24 History cyanocobalamin (vitamin B-12) 1,000 mcg PO DAILY 01/05/24 03/15/24 History 1,000 mcg capsule ergocalciferol (vitamin D2) 1,250 50,000 unit PO QWEEK 01/05/24 03/15/24 History mcg (50,000 unit) capsule (Drisdol) folic acid 1 mg tablet 1,000 mcg PO DAILY 01/05/24 03/15/24 History furosemide 20 mg tablet 20 mg PO DAILY 01/05/24 03/15/24 History magnesium hydroxide 400 mg/5 mL 5 ml PO DAILY PRN 01/05/24 03/15/24 History oral suspension (Milk of Magnesia) methotrexate 2.5 mg/mL oral 7.5 mg PO QWEEK 01/05/24 03/15/24 History solution metoprolol succinate 25 mg 25 mg PO DAILY 01/05/24 03/15/24 History tablet,extended release 24 hr pantoprazole 40 mg tablet,delayed 40 mg PO DAILY 01/05/24 03/15/24 History release polyethylene glycol 3350 17 4.25 g PO ONCE 01/05/24 03/15/24 History gram/dose oral powder (ClearLax) rivaroxaban 20 mg tablet 20 mg PO DAILY 01/05/24 03/15/24 History sertraline 150 mg capsule 150 mg PO DAILY 01/05/24 03/15/24 History sodium phosphates 19 gram-7 118 ml [place] DAILY PRN 01/05/24 03/15/24 History gram/118 mL enema (Enema) Exam Narrative Exam Narrative: Constitutional The patient is sitting in bed comfortable without acute distress HENMT: Head is atraumatic, normocephalic, no lymphadenopathy. Facial structures with normal appearance Eyes: Well aligned, intact ROM Neck: Normal ROM, no meningeal signs Neuro:alert and oriented to self, person, place and somewhat in situation. No neurological focal deficit Chest:Chest is symmetrical and normal appearance Resp: Normal respiratory pattern, speaks in full sentences, unlabored breathing, clear lung bilaterally Cardio: EKG in the ED showed SR HR 79, LBBB, ST d/t IVCD- regular rhythm, S1, S2, no murmur,, bilateral radial and dorsalis pedis pulses are positive, palpable GI: Abdomen is not distended, soft and non tender, bowel sounds are present : Negative Costovertebral angle tenderness, no bladder distension Back/spine/Pelvis: No back tenderness, normal alignment Integumentary: Pale -No skin lesions or rash Extremities: strength 5/5 upper extremities, 4/5 bilateral lower Psych: RASS 0, congruent mood and normal affect. Results Labs 03/15/24 14:43 03/15/24 14:43 Labs: Laboratory Results - last 24 hr 03/15/24 03/15/24 11:07 14:43 WBC 3.45 L RBC 2.33 L Hgb 6.2 L* Hct 21.4 L MCV 92 MCH 26.6 L MCHC 29.0 L RDW 17.0 H Plt Count 169 MPV 11.0 Immature Gran % 1.2 Neutrophils % 55.6 Lymphocytes % 31.9 Monocytes % 10.7 Eosinophils % 0.6 Basophils % 0.0 Nucleated RBC % 0.0 Absolute Neutrophils 1.92 Absolute Lymphocytes 1.10 L Absolute Monocytes 0.37 Absolute Eosinophils 0.02 Absolute Basophils 0.00 Sodium 139 Potassium 3.8 Chloride 103 Carbon Dioxide 32.6 H Anion Gap 3.4 BUN 22 H Creatinine 0.7 Est GFR (CKD-EPI 2020) 86.83 Glucose 79 Calcium 9.3 Magnesium 2.0 Total Bilirubin 0.29 AST 10 L ALT 15 Alkaline Phosphatase 83 Troponin I 9 Total Protein 7.2 Albumin 3.4 ABO/Rh O Positive Blood Type Recheck O Positive Cancelled Antibody Screen NEGATIVE Crossmatch See Detail Last Vital Signs Temp 36.6 C 03/15/24 16:02 Pulse 77 03/15/24 16:07 Resp 17 03/15/24 16:07 BP 127/61 03/15/24 16:07 Pulse Ox 99 03/15/24 16:02 Time Spent Time spent with Patient: >75 minutes Time was spent: preparing to see the patient(eg.review tests), obtaining and/or reviewing separately otained hiistory, ordering medications,tests, procedures, referring, communicating with other health healthcare business analyst, indepentently interpreting results, counseling the patient and care coordination
--- NOTE | 2024-03-15 16:52 | SCONE_ITS ---
Date of service: 03/15/24 Time of Service: 16:52 Assessment and Plan Assessment and plan (1) Rheumatoid arthritis: Status: Chronic (2) Immunosuppression: Status: Acute (3) GI bleed: Status: Chronic Assessment and plan: PPI and Carafate She is receiving 2 units of blood We are going to dose her with some iron as her ferritin is 6 I would like to do a EGD on her tomorrow. Is unclear when the last time she got the rivaroxaban. There is also unclear what her PE status is and if we should be bridging her with Lovenox. We will attempt to get some more records from [facility]. Anesthesia wants an echo prior to any anesthetics. Week do not do echoes on Tuesday. We we will see if we can get some records from [facility] tomorrow to facilitate care Currently patient is not having any pain and blood pressures have been stable. She is receiving blood. This document was created with voice activated software and may contain errors. 15 mins spent in direct pt care and 30 in non face to face time (4) Hx of chcf use of blood thinners: Status: Acute Assessment and plan: For PE. Is unclear if this was provoked or unprovoked PE and how long she needs to be on blood thinners. (5) Anemia: Status: Chronic History of Present Illness Narrative: Patient is a 83-year-old female who was admitted from [facility] and rehab with complaints of fatigue and feeling weak and dizzy. He was found to have a hemoglobin of 6. She is currently receiving blood. She denies any chest pain or shortness of breath when she is at rest. She says she has been having some abdominal pain that has been really bad. She is unclear as to how long it has been going on. She states she has not been eating well. She states she has been having some black tarry stools. She does not currently have any abdominal pain. She has had a stroke in the past and her short-term memory is unreliable so it is unknown how good of a historian she is. She thinks when she had a stroke all her care was at [facility]. She cannot remember doctors names or exact dates. It is unclear if she has ever had a colonoscopy in the past. She does not think she has had a stomach scope either. She is not currently on any stomach medication. She is not certain if she has had problems with ulcers in the past. She is on aspirin methotrexate and rivaroxaban. She has had a stroke in the past and she has had a history of PE in the past. We will attempt to get medical records from [facility]. I did look at her [facility] chart and there is no records in [facility]. Currently she is having no nausea and vomiting. She has no abdominal pain and is comfortable. Review of Systems Narrative: The patient does have some confusion and short-term memory loss so some of her memories may not be reliable. 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 in no acute distress HYDRATION: Well hydrated HEAD, EYES, EARS, NECK, THROAT: Head is normocephalic, pupils equal, round, reactive to light and accommodation, ocular movement intact, sclera clear and no jaundice. ?Dentition edentulous- LUNGS: normal respiration/normal chest excursion. ?Clear to auscultation bilaterally. ?No wheeze. ?HEART: Regular rate and rhythm. no murmurs? ABDOMEN: soft ? Normal bowel sounds.? ? Patient is mildly tender in the epigastric region Results Last Vital Signs Temp 36.8 C 03/15/24 16:17 Pulse 76 03/15/24 16:17 Resp 17 03/15/24 16:21 BP 129/59 L 03/15/24 16:17 Pulse Ox 99 03/15/24 16:17 Labs 03/17/24 08:40 03/17/24 06:01 Labs: Laboratory Results - last 24 hr 03/15/24 03/15/24 11:07 14:43 WBC 3.45 L RBC 2.33 L Hgb 6.2 L* Hct 21.4 L MCV 92 MCH 26.6 L MCHC 29.0 L RDW 17.0 H Plt Count 169 MPV 11.0 Immature Gran % 1.2 Neutrophils % 55.6 Lymphocytes % 31.9 Monocytes % 10.7 Eosinophils % 0.6 Basophils % 0.0 Nucleated RBC % 0.0 Absolute Neutrophils 1.92 Absolute Lymphocytes 1.10 L Absolute Monocytes 0.37 Absolute Eosinophils 0.02 Absolute Basophils 0.00 Sodium 139 Potassium 3.8 Chloride 103 Carbon Dioxide 32.6 H Anion Gap 3.4 BUN 22 H Creatinine 0.7 Est GFR (CKD-EPI 2020) 86.83 Glucose 79 Calcium 9.3 Magnesium 2.0 Total Bilirubin 0.29 AST 10 L ALT 15 Alkaline Phosphatase 83 Troponin I 9 Total Protein 7.2 Albumin 3.4 ABO/Rh O Positive Blood Type Recheck O Positive Cancelled Antibody Screen NEGATIVE Crossmatch See Detail
--- NOTE | 2024-03-15 17:28 | W.PC.ACHO ---
Registration Status: Primary Language: Preferred Language: ED Information & Data Chief Complaint Dizzy/Sync 03/15/24 14:29 Triage Note PT reports persistent 03/15/24 14:25 weakness and multiple falls over the past several months . Feels weak today. Health care providers report abnormal lab values (low H&H ). Feels weaker/unstable when standing. Most Recent Vital Signs Temperature 36.8 C 03/15/24 16:17 Temperature Source Oral 03/15/24 14:25 Pulse 78 03/15/24 17:01 Pulse 82 03/15/24 17:01 Respiratory Rate 18 03/15/24 17:01 Respiratory Effort Short of Breath 03/15/24 14:29 Respiratory Depth Normal 03/15/24 14:29 Respiratory Pattern Normal 03/15/24 14:29 Blood Pressure 158/58 H 03/15/24 17:01 Blood Pressure Mean 92 03/15/24 17:01 Blood Pressure Position Sitting 03/15/24 14:25 Pulse Oximetry 100 03/15/24 16:50 Oxygen Delivery Method Room Air 03/15/24 16:17 Oxygen Flow Rate 0 03/15/24 16:17 Allergies ampicillin Allergy (Unknown, Verified 01/05/24 10:45) Unknown codeine Allergy (Unknown, Verified 01/05/24 10:45) Unknown hydrocodone Allergy (Unknown, Verified 01/05/24 10:45) Unknown metoprolol Allergy (Unknown, Verified 01/05/24 10:45) Unknown morphine Allergy (Unknown, Verified 01/05/24 10:45) Unknown Penicillins Allergy (Unknown, Verified 01/05/24 10:45) Unknown shellfish derived Allergy (Unknown, Verified 01/05/24 10:45) Unknown oyster shell Allergy (Unknown, Uncoded 01/05/24 10:45) Unknown IV IV Catheter Type [Left Saline Lock Antecubital] IV Catheter Gauge [Left 18 Antecubital] Diagnostics 03/15/24 03/15/24 03/15/24 Range/Units Unknown 16:55 14:43 WBC 3.45 L (4.4-10.8) 10^3/uL RBC 2.33 L (3.93-5.22) 10^6/uL Hgb 6.2 L* (11.2-15.7) g/dL Hct 21.4 L (36.0-46.0) % MCV 92 (80-95) fL MCH 26.6 L (27.0-33.0) pg MCHC 29.0 L (32.0-36.0) % RDW 17.0 H (11.7-14.6) % Plt Count 169 (130-400) 10^3/uL MPV 11.0 (8.0-11.0) fL Immature Gran % 1.2 % Neutrophils % 55.6 % Lymphocytes % 31.9 % Monocytes % 10.7 % Eosinophils % 0.6 % Basophils % 0.0 % Nucleated RBC % 0.0 (0.0-0.3) % Absolute Neutrophils 1.92 (1.2-6.7) 10^3/uL Absolute Lymphocytes 1.10 L (1.2-3.4) 10^3/uL Absolute Monocytes 0.37 (0.1-0.8) 10^3/uL Absolute Eosinophils 0.02 (0.0-0.7) 10^3/uL Absolute Basophils 0.00 (0.0-0.2) 10^3/uL Sodium 139 (136-145) mmol/L Potassium 3.8 (3.5-5.1) mmol/L Chloride 103 (98-107) mmol/L Carbon Dioxide 32.6 H (21.0-32.0) mmol/L Anion Gap 3.4 (3-11) mmol/L BUN 22 H (7-18) mg/dL Creatinine 0.7 (0.55-1.02) mg/dL Est GFR (CKD-EPI 2020) 86.83 (mL/min/1.73m2) Glucose 79 (74-106) mg/dL Calcium 9.3 (8.5-10.1) mg/dL Magnesium 2.0 (1.8-2.4) mg/dL Total Bilirubin 0.29 (0.2-1.0) mg/dL AST 10 L (15-37) U/L ALT 15 (14-59) U/L Alkaline Phosphatase 83 (46-116) U/L Troponin I 9 (<or=51) ng/L Total Protein 7.2 (6.4-8.2) g/dL Albumin 3.4 (3.4-5.0) g/dL MRSA (TEM-PCR) Pending Add-On Test Request Pending ABO/Rh O Positive Blood Type Recheck Cancelled Antibody Screen NEGATIVE Crossmatch See Detail 03/15/24 Range/Units 11:07 WBC (4.4-10.8) 10^3/uL RBC (3.93-5.22) 10^6/uL Hgb (11.2-15.7) g/dL Hct (36.0-46.0) % MCV (80-95) fL MCH (27.0-33.0) pg MCHC (32.0-36.0) % RDW (11.7-14.6) % Plt Count (130-400) 10^3/uL MPV (8.0-11.0) fL Immature Gran % % Neutrophils % % Lymphocytes % % Monocytes % % Eosinophils % % Basophils % % Nucleated RBC % (0.0-0.3) % Absolute Neutrophils (1.2-6.7) 10^3/uL Absolute Lymphocytes (1.2-3.4) 10^3/uL Absolute Monocytes (0.1-0.8) 10^3/uL Absolute Eosinophils (0.0-0.7) 10^3/uL Absolute Basophils (0.0-0.2) 10^3/uL Sodium (136-145) mmol/L Potassium (3.5-5.1) mmol/L Chloride (98-107) mmol/L Carbon Dioxide (21.0-32.0) mmol/L Anion Gap (3-11) mmol/L BUN (7-18) mg/dL Creatinine (0.55-1.02) mg/dL Est GFR (CKD-EPI 2020) (mL/min/1.73m2) Glucose (74-106) mg/dL Calcium (8.5-10.1) mg/dL Magnesium (1.8-2.4) mg/dL Total Bilirubin (0.2-1.0) mg/dL AST (15-37) U/L ALT (14-59) U/L Alkaline Phosphatase (46-116) U/L Troponin I (<or=51) ng/L Total Protein (6.4-8.2) g/dL Albumin (3.4-5.0) g/dL MRSA (TEM-PCR) Add-On Test Request ABO/Rh Blood Type Recheck O Positive Antibody Screen Crossmatch Intake and Output - 24 Hour Total 03/15/24 14:19 thru 03/15/24 15:13 Weight 72 kg Other: Stool Occult Blood Positive Stool Characteristics Brown Emesis Description None Falls Risk Assessment History of Falls Previous History 03/15/24 14:29 Contributing Factors Unstable,Impairments 03/15/24 14:29 Ambulatory Aids Uses ambulatory device + 03/15/24 14:29 Tubes/Lines None 03/15/24 14:29 Gait Evaluation W/any additional score 03/15/24 14:29 Cognition No cognitive impairment 03/15/24 14:29 Fall Total Score 71 03/15/24 14:29 Level of Risk High Risk 03/15/24 14:29 Problems (Last Reviewed 03/15/24 @ 15:46 by William Lewis MD) Immunosuppression (Acute) Rheumatoid arthritis (Chronic) 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 Information / Comments: Report given by CONTAINER FILLER Luz, patient received 1st unit of RPBC , AO but with short memory loss occasionally. DIOMEDE, high risk for fall. [facility] for surgical consult. All questions answered and will come up with completed first unit of blood. Report received from:
[2024-03-15 17:53] LABS: Lab Add On Test DONE
[2024-03-15 18:11] LABS: LDH 150 U/L (81-234)
[2024-03-15 18:42] LABS: MRSA PCR Negative (Negative)
[2024-03-15 18:51] LABS: Ferritin 6 ng/mL (8-252); Vitamin B12 624 pg/mL (193-986)
[2024-03-15 18:54] LABS: Folate > 20.0 ng/mL (8.6-20.0)
[2024-03-15] MEDS: Docusate Sodium 100 MG CAP PO (20:25)
[2024-03-15] MEDS: Pantoprazole 40 MG VIAL IVP (22:00)
[2024-03-15] MEDS: Normal Saline Flush 10 ML SYR IVP (22:01)
[2024-03-15] MEDS: IRON SUCROSE COMPLEX 200 MG in Normal Saline 100 ML 100 MG IVPB (23:54)
[2024-03-16] VITALS (11 sets, daily range): BP systolic 118–157; BP diastolic 63–82; PULSE 70–86; RESP 14–18; TEMP 35.8–36.8; O2SAT 85–100; BMI 28.0
[2024-03-16 00:35] LABS: Abs Immature Grans 0.08 10^3/uL (0.0-0.06); Absolute Eosinophil Count 0.02 10^3/uL (0.0-0.7); Absolute Lymphocyte Count 1.09 10^3/uL (1.2-3.4); Absolute Monocyte Count 0.43 10^3/uL (0.1-0.8); Absolute Neutrophil Count 1.73 10^3/uL (1.2-6.7); Eosinophils % 0.6 %; HGB 7.9 g/dL (11.2-15.7); Immature Grans % 2.4 %; Lymphocytes % 32.5 %; MCH 27.7 pg (27.0-33.0); MPV 11.2 fL (8.0-11.0); Monocytes % 12.8 %; Neutrophils % 51.7 %; Platelet Count 117 10^3/uL (130-400); RBC 2.85 10^6/uL (3.93-5.22); RDW 16.3 % (11.7-14.6); WBC 3.35 10^3/uL (4.4-10.8)
[2024-03-16 00:38] LABS: MCHC 31.6 % (32.0-36.0); MCV 88 fL (80-95)
[2024-03-16 07:00] LABS: Abs Immature Grans 0.08 10^3/uL (0.0-0.06); Absolute Basophil Count 0.01 10^3/uL (0.0-0.2); Absolute Eosinophil Count 0.01 10^3/uL (0.0-0.7); Absolute Lymphocyte Count 0.67 10^3/uL (1.2-3.4); Absolute Monocyte Count 0.35 10^3/uL (0.1-0.8); Absolute Neutrophil Count 2.29 10^3/uL (1.2-6.7); Basophils % 0.3 %; Eosinophils % 0.3 %; HCT 25.5 % (36.0-46.0); Immature Grans % 2.3 %; Lymphocytes % 19.6 %; MCH 27.5 pg (27.0-33.0); MCHC 31.4 % (32.0-36.0); MCV 88 fL (80-95); MPV 10.9 fL (8.0-11.0); Monocytes % 10.3 %; Neutrophils % 67.2 %; Platelet Count 129 10^3/uL (130-400); RBC 2.91 10^6/uL (3.93-5.22); RDW 16.8 % (11.7-14.6); RDW-SD 53.5 fL; WBC 3.41 10^3/uL (4.4-10.8)
[2024-03-16 07:07] LABS: Anion Gap 5.6 mmol/L (3-11); BUN 17 mg/dL (7-18); CO2 28.4 mmol/L (21.0-32.0); CREATININE 0.6 mg/dL (0.55-1.02); Calcium 8.5 mg/dL (8.5-10.1); Chloride 107 mmol/L (98-107); Estimated GFR 90.12 (mL/min/1.73m2); Glucose 91 mg/dL (74-106); Potassium 3.9 mmol/L (3.5-5.1); Sodium 141 mmol/L (136-145)
[2024-03-16] MEDS: Sucralfate 1 GM TAB PO ×4 (07:09→21:17)
[2024-03-16] MEDS: Folic Acid 1 MG TAB PO (07:50)
[2024-03-16] MEDS: Metoprolol CR 25 MG TABCR PO (07:50)
[2024-03-16] MEDS: Docusate Sodium 100 MG CAP PO ×2 (07:50→21:17)
[2024-03-16] MEDS: Atorvastatin 40 MG TAB PO (07:50)
[2024-03-16] MEDS: Cyanocobalamin 500 MCG TAB 1000 MCG PO (07:50)
[2024-03-16] MEDS: Furosemide 20 MG TAB PO (07:50)
[2024-03-16] MEDS: Sertraline 50 MG TAB 150 MG PO (07:51)
[2024-03-16] MEDS: Normal Saline Flush 10 ML SYR IVP ×3 (07:51→21:16)
[2024-03-16] MEDS: Pantoprazole 40 MG VIAL IVP ×2 (07:51→21:16)
[2024-03-16] MEDS: Ergocalciferol 50000 UNITS CAP PO (08:53)
--- NOTE | 2024-03-16 09:07 | PDOC.CMIN ---
Date of service: 03/16/24 Time of Service: 09:07 Care Management Initial Assmt Initial Assessment Reason for Hospitalization: GI Bleed Functional Status/Living Situation Patient Presentation: Kaitlin was sitting up in a chair when CM met with her. She was pleasant in interaction and agreeable to conversation. Kaitlin stated that she has been at [facility] for about a month. It has actually been about 6 months. She seems confused and forgetful but not a lot of information is available in her record to detail any diagnostic workup or findings for this. CM attempted to contact staff at [facility] but no one answered the phone. CM then reached out to her daughter but had to leave a message. Kaitlin informed CM that she used to live in [place] in an apartment with her son Eduardo and daughter Saira. She stated she does not have any grandchildren and that Eduardo and Saira are her only children. 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 She reported that she ambulates with a walker, however has required the use of a lift to transfer to the chair. No information is available regarding a health care agent or guardianship. Town of Residence: [facility] Resides with: Other (SNF) Significant Other/Family: Out of area ([place]) Employment Status: Retired Instrumental Activities of Daily Living (ADLs): Requires support Medications Medication Management: No Issues/Barriers identified Advance Directives Advance Directives: Do you have an Advance Directive: AD On File at [facility]: N 01/05/24 10:40 Date Asked 03/15/24 03/15/24 12:52 AD Date Reviewed COLST On File at [facility] Yes 01/05/24 15:28 COLST Date Scanned 01/05/24 01/05/24 15:28 Code Status Resuscitation Status DNR/DNI Portal Pt does not currently have a portal and education provided: No Portal Education: Other (lives in a SNF) Insurance Coverage/Financial Issues Insurance: [employer] Medicare Replacement Care Team Visit Care Team Role Provider Type Jay Jay Villatoro Primary Care Provider NON-[facility] STAFF PHYSICIAN InPatient David Domínguez Other Providers OTHER William Lewis MD Emergency Provider [facility] STAFF PHYSICIAN Kp Dupont, Admit Provider [facility] STAFF PHYSICIAN Attending Provider Discharge Potential Discharge Needs: PCP F/U Appt Anticipated Barriers to Discharge: None Identified Patient/Family Education Needs: Review discharge instructions, discuss Ask Me Three Transportation: Facility Transport Plan: Anticipate Kaitlin will be transferred back to [facility] when medically cleared. She will follow up with the facility providers and plan of care and transport via facility van. CM will follow and continue to support discharge needs. PFSH All Active Problems (Updated 03/15/24 @ 19:25 by Lula Bucio APRN) Pulmonary emboli (Chronic) Atrial fibrillation (Chronic) Immunosuppression (Acute) Rheumatoid arthritis (Chronic) Hx of care home use of blood thinners (Acute) GI bleed (Chronic) Anemia (Chronic) Social History Smoking/Tobacco Use Status: Never Smoking risk assessment performed?: Yes Alcohol Intake: former Drug use: Never Substance use type: does not use Housing: jail Do you feel safe at home: Yes Do you feel safe in your relationship?: Yes SDOH(Care Management) Screening Will the Patient Participate in the Screening?: Unable to obtain
--- NOTE | 2024-03-16 09:30 | DI.US_ITS ---
APPROVED REPORT EXAM: Comprehensive 2D, Doppler, and color-flow Echocardiogram Patient Location: In-Patient Room/Bed: 227 Solar Energy Systems Engineer: Sanchez Spain RDCS (AE) Indications: Afib, GI bleed Conclusion Normal left ventricular wall thickness and chamber size. Ejection fraction is 55%. Wall motion is n ormal Normal right ventricular size and function Both atria are normal in size There is no structural or hemodynamically significant valvular disease Wall motion Left Ventricle The left ventricle is normal size. The left ventricular systolic function is normal. The left ventric ular ejection fraction is within the normal range. There is normal left ventricular wall thickness. T here is normal LV segmental wall motion. There is no ventricular septal defect visualized. LVEF is 55 %. Right Ventricle The right ventricle is normal size. The right ventricular systolic function is normal. Atria The left atrium size is normal. The right atrium size is normal. The interatrial septum is intact wit h no evidence for an atrial septal defect. Aortic Valve The aortic valve is normal in structure. Aortic valve is trileaflet. There is no aortic valvular sten osis. No aortic regurgitation is present. Mitral Valve The mitral valve is normal in structure. No evidence of mitral valve stenosis. Trace mitral regurgita tion. Tricuspid Valve The tricuspid valve is normal in structure. There is no tricuspid valve stenosis. Trace to mild tricu spid regurgitation. The RVSP is 20.21 mmHg. Pulmonic Valve The pulmonary valve is normal in structure. There is no pulmonic valvular stenosis. Trace pulmonic re gurgitation. Great Vessels The aortic root is normal in size. The ascending aorta is normal in size. Aortic arch is not well vis ualized. IVC is normal in size and collapses >50% with inspiration. Pericardium There is no pericardial effusion. 2D Dimensions IVSD d PLAX 0.89 cm F: 0.6-1.0 Ao Root d 2.82 cm F: 2.7 - 3.3 LVPW d PLAX 0.87 cm F: 0.6 - 1.0 Ao Asc Diam d 2.99 cm F: 2.3 - 3.1 LVID d PLAX 4.31 cm F: 3.8 - 5.2 LVDs 3.14 cm F: 2.2 - 3.5 LV EF Teichholz 53.1 % FS 27.10 % LV EDV (Teich) 83.4 mL LV ESV (Teich) 39.1 mL Stroke Vol Index (Teich) 25.29 M-Mode TAPSE 1.55 cm (M/F) >1.7 Auto EF LV EDV A4C 110.8 mL LV EDV A2C 97.5 mL LV EDV BP 104.3 mL LV ESV A4C 52.7 mL LV ESV A2C 45.1 mL LV ESV BP 49.6 mL LVEF(%) A4C 52.4 % LVEF(%) A2C 53.8 % LVEF(%) BP 52.4 % LV SV A4C 58.1 ml LV SV A2C 52.4 ml LV SV BP 54.7 ml LV CO A4C 4.3 L/min LV CO A2C 4.0 L/min LV CO BP 4.2 L/min HR A4C 74.69 BPM HR A2C 76.44 BPM LV EDV Index (BP) LA Volume LA Length A4C 4.2 cm LA Length A2C 4.8 cm LA Area A4C s 9.15 cm2 LA Area A2C s 14.99 cm2 LA Vol A4C A-L 17.08 mL LA Vol A2C A-L 39.75 mL LA Vol Biplane A-L 28.0 mL LA Vol/BSA A4C A-L LA Vol/BSA A2C A-L LA Vol/BSA BP A-L 16.0 mL/m2 LA Vol A4C MOD 15.2 mL LA Vol A2C MOD 36.3 mL LA Vol BP MOD 25.2 mL RA Volume RA Area A4C 9.2 cm2 RA ESV A4C (A-L) 20.5mL RA Vol/BSA A4C A-L RA Length A4C 3.5 cm RA ESV A4C (MOD) 19.3mL LV Diastology MV E' medial 0.051 (>0.07 m/s) MV E Vmax 0.52 (0.4-1.3 m/s) MV E/E' MED 10.09 (<14) MV A Vmax 1.10 (0.4-1.3 m/s) MV E' lateral 0.057 (>0.1 m/s) E/A Ratio 0.5 MV E/E' LAT 9.05 (<14) MV E' Average 0.054 m/s MV E/E'(average) 9.54 Aortic Valve AoV Vmax 1.27 m/s LVOT Vmax 1.09 m/s AoV Peak Grad 6.5 mmHg LVOT Peak Grad 4.7 mmHg AoV Area (Vmax) 2.32 cm2 LVOT VTI 0.253 m AoV VTI 0.268 m LVOT Mean Grad 2.6 mmHg AoV Mean Apolinar. 0.88 m/s LVOT SV 68.68 mL AoV Mean Grad 3.6 mmHg LVOT Diam s 1.85 cm AoV Area (VTI) 2.57 cm2 AV Regurg Peak Gr. 6.49 mmHg Velocity Ratio 0.86 Mitral Valve MV DT 189 (160-240 msec) MV Vmax TIPS 1.29 m/s MV Mean Grad 2.6 (<2mmHg) MV VTI 0.278 m Pulmonary Valve PV Vmax 1.10 (0.5-1.5 m/s) RVOT Vmax 0.77 m/s PV Peak Grad 4.8 mmHg RVOT Peak Gr. 2.4 mmHg PV Mean Apolinar 0.74 m/s RVOT VTI 0.133 m PV Mean Grad 2.5 mmHg RVOT Mean Gr. 1.0 mmHg Tricuspid Valve RA Pressure 3.00 mmHg TR Vmax 2.07 m/s TR Peak Grad 17.2 mmHg RVSP (TR) 20.2 mmHg
--- NOTE | 2024-03-16 09:50 | IN_ITS ---
PT Notes Visit Reasons: GIB,anemia A-fib Inpatient Physical Therapy Evaluation Date: 03/16/24 Referring Doctor: Lula Bucio NP PT Orders: PT CONSULT: Safety consult for D/C Precautions: fall, standard Patient Profile/Admitting Diagnosis: Kaitlin is an 83-year-old female with a hi story of heart failure with reduced ejection fraction, COPD, coronary artery disease, rheumatoid arthritis, A-fib on rivaroxaban, PE, who presented to ED via EMS from rehab with GI bleed. Social History/Home Situation: Currently residing at [facility]. Unable to provide consistent history, first reporting that she walks on her own at the rehab with a walker, and later stating that she has to be assisted into wheelchair. Unclear baseline. Equipment Owned/DME: Resident of [facility] Subjective: Kaitlin states that she is feeling a little better today. No dizziness while lying down. States that she feels very tired. Objective: General Observation: Resting in bed with telemetry in place, purewick catheter, incontinent of bowels. Mental Status: Alert throughout. Oriented to place, but not time or person. Provides inconsistent history. Pain: abdominal pain with pressure. C/o left knee pain ROM: Right Upper Extremity: Shoulder flexion 100* right, 90* left. Elbow and wrist motion WFL. Full mechanical maintenance foreman. Left Upper Extremity: Shoulder flexion 100* right, 90* left. Elbow and wrist motion WFL. Full mechanical maintenance foreman. Right Lower Extremity: WFL Left Lower Extremity: Hip and knee ROM guarded, but tolerates 100* flexion, 30* ER, 0* IR, knee flexion 0-110*. Strength: Right Upper Extremity: Shoulder flexion 3-/5. Biceps 4/5. Triceps 4/5. Staff Physical Therapist is weak but equal. Left Upper Extremity: Shoulder flexion 3-/5. Biceps 4/5. Triceps 4/5. Staff Physical Therapist is weak but equal. Right Lower Extremity: Hip flexion 3/5. Quads 4-/5. Ankle DF 4+/5. Left Lower Extremity: Hip flexion 3/5. Quads 4-/5. Ankle DF 4+/5. Bed Mobility/Transfers: supine-sit: min A, requring SBA for static sitting. Initially quite dizzy, improving with time. sit-supine: max A x 2 sit-stand: mod A x 2, with posterior pushing and need for cues for hand placement stand-sit: mod A x 1 Gait: unable Balance: Static Sitting: fair Dynamic Sitting: poor. Immediately drifts into trunk extension with UE motions, requiring mod A at the trunk during assessment of ROM Static Standing: poor. Requires mod A x 1 for all static standing, with posterior pushing and limited reliance on UE support to FWW Dynamic Standing: unable Special Tests: Mobility Limitations Standardized Measure [facility] AM-PAC 6 clicks Basic Mobility Inpatient Short Form: Raw Score: 11 CMS Score: 73% Informed Consent/Education: Patient instructed in purpose of PT consult and plan of care. Treatment: Initial Evaluation (35782) Therapeutic Activities (03768): Instructed in rolling techniques, with cues for limb placement and use of grab bars Instructed in transfer techniques, with max cues for hand placement Assisted with self care following stool incontinence, requiring mod A for standing x 4 minutes while assisted by nursing. Cued for upright positioning and hand placement to walker throughout, with posterior pushing noted. Assessment: Patient is an 83 year old female referred to physical therapy services for safety consultation for discharge from acute care, where she's currently being managed for GI bleed. She is a current resident of [facility], where it sounds as though she has been non-ambulatory for some period of time. She demonstrates significant posterior pushing, and will require Steady lift for transfers during hospitalization. Patient currently demonstrates the following impairment level findings: 1. decreased sitting balance 2. decreased standing balance with posterior pushing 3. decreased LE strength 4. decreased UE strength 5. decreased activity tolerance 6. unclear baseline mobility Impairments are contributing to the following functional limitations: 1. unable to ambulate 2. unable to transfer independently 3. dependent for self care 4. unable to sit independently Patient is assessed as Moderate 51236 complexity based on the following: History: As above. Complicating factor of cognitive impairment, with unclear baseline mobility and limited safety awareness. Examination: functional limitations as above Presentation: evolving Decision Making: moderate complexity Goals: Goals X1 week 1. Supine-Sit : SBA 2. Sit-Supine : SBA 3. Sit-Stand : min A 4. Stand-Sit : min A 5. Bed-Chair : stand pivot with FWW, min A 6. Chair-Bed : stand pivot with FWW, min A 7. Gait : FWW, min A x 15' Plan of Care/Treatment Plan: 1-2x/day, 7 days/week x 1 week. Patient will require Steady Lift transfers for safety. Plan of care has been reviewed with the BAR ATTENDANT providing the service under Physical Therapy direction. Initiate Physical Therapy intervention for strengthening, bed mobility, transfers, gait, stairs, balance training, use of assistive device. DISCHARGE RECOMMENDATIONS: SNF versus LTC based on ability to participate and progress TREATMENT CODE/TIME: 6204-1508 (19941, 26265) Sandy Haque, PT, DPT [facility] Please sign an return this page within 30 days if you agree with the above POC. Thank you! 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
--- NOTE | 2024-03-16 13:04 | PHA.REVIEW2 ---
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) ampicillin Allergy (Unknown, Verified 01/05/24 10:45) Unknown codeine Allergy (Unknown, Verified 01/05/24 10:45) Unknown hydrocodone Allergy (Unknown, Verified 01/05/24 10:45) Unknown metoprolol Allergy (Unknown, Verified 01/05/24 10:45) Unknown morphine Allergy (Unknown, Verified 01/05/24 10:45) Unknown Penicillins Allergy (Unknown, Verified 01/05/24 10:45) Unknown shellfish derived Allergy (Unknown, Verified 01/05/24 10:45) Unknown oyster shell Allergy (Unknown, Uncoded 01/05/24 10:45) Unknown Resuscitation Status DNR/DNI Height 5 ft 3 in Weight 72 kg Comments Comments/Follow Ups: Follow up with provider/nursing about patients external fill history (midodrine and ranolazine) Pharmacy Admission Review Renal Dosing Renal Dosing: BUN 17 mg/dL (7-18) 03/16/24 06:39 Creatinine 0.6 mg/dL (0.55-1.02) 03/16/24 06:39 Medications needing adjustments: Reviewed (CrCl 41.96 mL/min) List of meds needing interventions: Current medications are okay Anticoagulation Anticoagulation: Hgb 8.0 g/dL (11.2-15.7) L 03/16/24 06:39 Hct 25.5 % (36.0-46.0) L 03/16/24 06:39 Plt Count 129 10^3/uL (130-400) L 03/16/24 06:39 Creatinine 0.6 mg/dL (0.55-1.02) 03/16/24 06:39 DVT Prophylaxis: Reviewed (TEDs - GIB and anemia, Hgb increased from 6.2 and HCT increased from 21.4) Relevant Labs Relevant Labs: Sodium 141 mmol/L (136-145) 03/16/24 06:39 Potassium 3.9 mmol/L (3.5-5.1) 03/16/24 06:39 Chloride 107 mmol/L (98-107) 03/16/24 06:39 Magnesium 2.0 mg/dL (1.8-2.4) 03/15/24 14:43 Electrolytes, C-Reactive P, ESR: Reviewed Cardiac Review Cardiac Review: Troponin I 9 ng/L (<or=51) 03/15/24 14:43 Blood Pressure 157/82 1115 Blood Pressure 150/82 0804 Blood Pressure 156/80 0358 BP, HR, EF%: Reviewed List meds needing interventions: Has orders for furosemide 20mg daily and metoprolol XL 25mg daily QTc Review QTc: Reviewed (486 from 03/15/24) IV to PO Switch IV Medications: Reviewed (iron sucrose and pantoprazole) Home Meds Home Med List reviewed: Intervened Relevent Home Meds Not ordered & why?: aspirin (on hold per H+P), Xarelto (on hold per H+P), bisacodyl (PRN), methotrexate (weekly) and fleet enema (PRN) Informed provider of patients weekly methotrexate so that they are aware Told provider/nursing at morning meeting that patient has recently filled prescriptions for midodrine and ranolazine. Provider is looking into it. Current Meds Current Medication Order Review: Intervened Comments: Added 2nd PRN to milk of magnesia order per pharmacy protocol Pharmacy Antibiotic Review Relevant Labs: Relevant Labs 03/15/24 14:43 Lactate Dehydrogenase 150 Comments Comments/Follow Ups: Follow up with provider/nursing about patients external fill history (midodrine and ranolazine)
--- NOTE | 2024-03-16 13:17 | PT.INTREAT ---
PT Notes Visit Reasons: GIB,anemia A-fib Inpatient Physical Therapy Treatment Note [facility] Date: 03/16/24 PRECAUTIONS: fall SUBJECTIVE: Kaitlin states that she would like to get up to the chair. She is agreeable to PT intervention. OBJECTIVE: ? Therapeutic Activities (52724b6): Direct one-on-one instruction in dynamic activities to improve functional performance. ? BED MOBILITY/TRANSFERS? Supine-sit: min A? Sit-stand: mod A with UE support to Steady Lift?. Cued for limb placement; patient attempts to place feet to gan supports several times, requiring verbal and tactile cues for placement to foot plate. Cued for upright positioning and postural engagement througout. ? Stand-sit: mod A with max cues for hand placement ? Bed-Chair: Steady Lift, assist of 2 ? Provided skilled cues and instruction on performance and technique throughout.? Therapeutic Exercises (33550u4): Direct one-on-one instruction in therapeutic exercises to develop strength, endurance, range of motion and flexibility. ? Instructed in the following seated exercises: march 10x each, with need for continuous cues and monitoring seated shoulder flexion, with contralateral UE support to facilitate improved upright positoning seated diagonal reach at 90* flexion; cues for forward weight shift and UE crossing midline. Requires contralateral UE support throughout ASSESSMENT:?Tolerated transfer with Steady lift well. Continues to demonstrate posterior pushing, requiring significant assistance for seated and standing activities. PLAN: Continue progressing as tolerated, with efforts to facilitate forward weight shift in sitting and standing positions. TREATMENT CODE/TIME: 8088-8124 DISCHARGE RECOMMENDATION: SNF
--- NOTE | 2024-03-16 16:15 | CHAPLAIN ---
Kaitlin was up in the chair when I visited. She told me that she lives in [place], (She currently lives [facility] where she's been for about six months.) and that she grew up in [facility]. She was very pleasant and clearly happy to be in a conversation. She's said she's not sure if her family (a son and daughter) know that she is here. Kaitlin also said that she isn't allowed to have anything to eat because she may be having surgery. When I asked what kind of surgery, she said at first she didn't know, then said she may be having surgery on her voice box and wondered if she'd be able to talk after that.
[2024-03-16] MEDS: Normal Saline 1,000 ML 30 ML IV (17:15)
--- NOTE | 2024-03-16 17:22 | ANES.PREOP_ITS ---
General Info Date of Service Date Performed: 03/16/24 Height: 5 ft 3 in Weight: 72 kg Body Mass Index (BMI): 28.0 Surgical Procedure: Operation Date: 03/16/24 15:05 Proposed Procedure Side Surgeon p Gastroscopy Mihaela Dietz DO Actual Procedure Side Surgeon p Gastroscopy Not Applicable Mihaela Dietz DO Pre-Op Diagnosis Post-Op Diagnosis GI BLEED/ ANEMIA Meds Allergies and Home Medications Allergies Allergy/AdvReac Type Severity Reaction Status Date / Time ampicillin Allergy Unknown Unknown Verified 01/05/24 10:45 codeine Allergy Unknown Unknown Verified 01/05/24 10:45 hydrocodone Allergy Unknown Unknown Verified 01/05/24 10:45 metoprolol Allergy Unknown Unknown Verified 01/05/24 10:45 morphine Allergy Unknown Unknown Verified 01/05/24 10:45 Penicillins Allergy Unknown Unknown Verified 01/05/24 10:45 shellfish derived Allergy Unknown Unknown Verified 01/05/24 10:45 oyster shell Allergy Unknown Unknown Uncoded 01/05/24 10:45 Home Medication ?Medication ?Instructions ?Recorded acetaminophen 325 mg capsule 650 mg PO Q4H PRN 01/05/24 aspirin 81 mg tablet,delayed 81 mg PO DAILY 01/05/24 release (Adult Aspirin Regimen) atorvastatin 40 mg tablet 40 mg PO DAILY 01/05/24 bisacodyl 10 mg rectal suppository 10 mg TX DAILY PRN 01/05/24 cyanocobalamin (vitamin B-12) 1,000 mcg PO DAILY 01/05/24 1,000 mcg capsule ergocalciferol (vitamin D2) 1,250 50,000 unit PO QWEEK 01/05/24 mcg (50,000 unit) capsule (Drisdol) folic acid 1 mg tablet 1,000 mcg PO DAILY 01/05/24 furosemide 20 mg tablet 20 mg PO DAILY 01/05/24 magnesium hydroxide 400 mg/5 mL 5 ml PO DAILY PRN 01/05/24 oral suspension (Milk of Magnesia) metoprolol succinate 25 mg 25 mg PO DAILY 01/05/24 tablet,extended release 24 hr pantoprazole 40 mg tablet,delayed 40 mg PO DAILY 01/05/24 release polyethylene glycol 3350 17 4.25 g PO ONCE 01/05/24 gram/dose oral powder (ClearLax) rivaroxaban 20 mg tablet 20 mg PO DAILY 01/05/24 sodium phosphates 19 gram-7 118 ml TX DAILY PRN 01/05/24 gram/118 mL enema (Enema) methotrexate sodium 2.5 mg tablet 7.5 mg PO .WEEKLY 03/16/24 sertraline 100 mg tablet 100 mg PO DAILY 03/16/24 sertraline 50 mg tablet 50 mg PO DAILY 03/16/24 Current Visit Medications: Current Medications Generic Name Dose Route Start Last Admin Trade Name Freq PRN Reason Stop Dose Admin Acetaminophen 650 mg 03/15/24 17:42 Acetaminophen 325 Mg Tab PO Q6H PRN PRN Albuterol Sulfate 2.5 mg 03/15/24 17:40 Albuterol 2.5 Mg/3 Ml Inh Soln Vial UPD Q2H PRN PRN Albuterol/Ipratropium 3 ml 03/15/24 17:40 Albuterol/Ipratropium 3 Ml Upd Vial UPD Q6H PRN PRN Atorvastatin Calcium 40 mg 03/16/24 08:30 03/16/24 07:50 Atorvastatin 40 Mg Tab PO 40 mg DAILY POORNIMA Administration Cyanocobalamin 1,000 mcg 03/16/24 08:30 03/16/24 07:50 Cyanocobalamin 500 Mcg Tab PO 1,000 mcg DAILY POORNIMA Administration Docusate Sodium 100 mg 03/15/24 20:00 03/16/24 07:50 Docusate Sodium 100 Mg Cap PO 100 mg BID POORNIMA Administration Ergocalciferol 50,000 units 03/16/24 09:00 03/16/24 08:53 Ergocalciferol 19301 Units Cap PO 50,000 units Q168H POORNIMA Administration Folic Acid 1 mg 03/16/24 08:30 03/16/24 07:50 Folic Acid 1 Mg Tab PO 1 mg DAILY POORNIMA Administration Furosemide 20 mg 03/16/24 08:30 03/16/24 07:50 Furosemide 20 Mg Tab PO 20 mg DAILY POORNIMA Administration Iron Sucrose 200 mg/ Sodium 110 mls @ 400 mls/hr 03/18/24 10:00 Chloride IVPB 03/18/24 16:00 TODAY@1000 POORNIMA IV Miscellaneous Supplies 1 each 03/15/24 17:40 Iv Access IV DIRECTED POORNIMA Magnesium Hydroxide 5 ml 03/16/24 09:42 Milk Of Magnesia 30 Ml Cup PO DAILY PRN PRN Metoprolol Succinate 25 mg 03/16/24 08:30 03/16/24 07:50 Metoprolol Cr 25 Mg Tabcr PO 25 mg DAILY POORNIMA Administration Pantoprazole Sodium 40 mg 03/15/24 20:00 03/16/24 07:51 Pantoprazole 40 Mg Vial IVP 40 mg BID POORNIMA Administration Polyethylene Glycol 17 gm 03/15/24 17:47 Polyethylene Glycol 3350 17 Gm Packet PO DAILY PRN PRN Sertraline HCl 150 mg 03/16/24 08:30 03/16/24 07:51 Sertraline 50 Mg Tab PO 150 mg DAILY POORNIMA Administration Sodium Chloride 0 ml 03/15/24 17:40 Normal Saline Flush 10 Ml Syr IVP PRN PRN Sodium Chloride 0 ml 03/15/24 20:00 03/16/24 07:52 Normal Saline Flush 10 Ml Syr IVP 10 ml BID POORNIMA Administration Sodium Chloride 0 ml 03/15/24 17:40 Normal Saline 10 Ml Vial IJ DIRECTED PRN Sucralfate 1 gm 03/16/24 07:30 03/16/24 16:18 Sucralfate 1 Gm Tab PO 1 gm AC & HS POORNIMA Administration PFSH Active Problems Active Problems: Problem Status Onset Code Pulmonary emboli Chronic I26.99 Atrial fibrillation Chronic I48.91 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 Rheumatoid arthritis Chronic M06.9 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 GI bleed Chronic K92.2 Anemia Chronic D64.9 Tobacco Smoking/Tobacco Use Status: Never Alcohol Alcohol Intake: former Substance Use Substance use: Never Substance use type: does not use Vital Signs and Lab Results Vital Signs Most Recent Vital Signs in EMR: Most Recent Vital Signs Temp Pulse Resp BP Pulse Ox 36.0 C L 77 17 123/69 96 03/16/24 15:32 03/16/24 15:32 03/16/24 15:32 03/16/24 15:32 03/16/24 15:32 Lab Results 03/16/24 06:39 03/16/24 06:39 Blood Type / Crossmatch: 2 Antibody Screen NEGATIVE 03/15/24 Crossmatch See Detail 03/15/24 Complete Blood Count: 2 White Blood Count 3.41 10^3/uL (4.4-10.8) L 03/16/24 06:39 Red Blood Count 2.91 10^6/uL (3.93-5.22) L 03/16/24 06:39 Hemoglobin 8.0 g/dL (11.2-15.7) L 03/16/24 06:39 Hematocrit 25.5 % (36.0-46.0) L 03/16/24 06:39 Platelet Count 129 10^3/uL (130-400) L 03/16/24 06:39 Complete Metabolic Panel: 2 Sodium 141 mmol/L (136-145) 03/16/24 06:39 Potassium 3.9 mmol/L (3.5-5.1) 03/16/24 06:39 Chloride 107 mmol/L (98-107) 03/16/24 06:39 Carbon Dioxide 28.4 mmol/L (21.0-32.0) 03/16/24 06:39 BUN 17 mg/dL (7-18) 03/16/24 06:39 Creatinine 0.6 mg/dL (0.55-1.02) 03/16/24 06:39 Est GFR (CKD-EPI 2020) 90.12 (mL/min/1.73m2) 03/16/24 06:39 Magnesium 2.0 mg/dL (1.8-2.4) 03/15/24 14:43 Calcium 8.5 mg/dL (8.5-10.1) 03/16/24 06:39 Albumin 3.4 g/dL (3.4-5.0) 03/15/24 14:43 Glucose 91 mg/dL (74-106) 03/16/24 06:39 Liver Function Panel: 2 Alanine Aminotransferase (ALT/SGPT) 15 U/L (14-59) 03/15/24 14: 43 Aspartate Amino Transf (AST/SGOT) 10 U/L (15-37) L 03/15/24 14: 43 Coagulation Panel: 2 No Data to Display Cardiac Panel: 2 Troponin I 9 ng/L (<or=51) 03/15/24 Arterial Blood Gas: 2 No Data to Display Venous Blood Gas: 2 No Data to Display Pancreas Panel: 2 No Data to Display Thyroid Panel: 2 No Data to Display Infectious Disease: 2 No Data to Display Blood Cultures: 2 No Data to Display Toxicology Panel: 2 No Data to Display Imaging and Studies Imaging and Studies Study information below may be from another EMR and interpreted by another provider. Please see original notes in EMR for more complete details. EKG Summary: EKG PATIENT NAME: Kaitlin Mendenhall UNIT #: [id number] ORDERING PROVIDER: William Lewis M.D. PRIMARY CARE PROVIDER: KAVYA VILLATORO MD DATE/TIME OF SERVICE: 03/15/24 1458 : 1940 PERFORMING LOCATION: [place] APPROVED REPORT Exam: Resting ECG Reason for Exam: dizziness Patient Location: E HR:79 bpm ECG Measurements Heart Rate 79 AXIS TX 175 P 0 QRSd 127 QRS 58 QT 424 T254 QTc 486 Conclusion Sinus rhythm...normal P axis, V-rate 60- 99 Left bundle branch block...QRSd>120, broad/notched R ST elevation secondary to IVCD...Multiple VCG criteria - <Electronically signed by William Lewis M.D. in OV> E-Sign Date: 03/15/24 E-Sign Time: 1511 ADDENDUM APPROVED REPORT Exam: Resting ECG Reason for Exam: dizziness Patient Location: E HR:79 bpm ECG Measurements Heart Rate 79 AXIS TX 175 P 0 QRSd 127 QRS 58 QT 424 T254 QTc 486 Conclusion Sinus rhythm...normal P axis, V-rate 60- 99 Left bundle branch block...QRSd>120, broad/notched R ST elevation secondary to IVCD...Multiple VCG criteria I have reviewed and I agree with the emergency room physician's ECG interpretation. Electronically signed by: <Electronically signed by Sophie Morris M.D. in OV> 03/16/24 0810 Cosigned by: Echocardiogram Summary: Patient Name: Kaitlin Mendenhall Unit #: [id number] Loc: [place] Ordering Provider: Mihaela Dietz DO Status: ADM IN Primary Care Provider: Kavya Villatoro Date of Exam: 03/16/24 Sex: F Admission Date: 03/15/24 : 1940 Age: 83 APPROVED REPORT EXAM: Comprehensive 2D, Doppler, and color-flow Echocardiogram Patient Location: In-Patient Room/Bed: 227 Legal Summer Intern: Sanchez Spain RDCS (AE) Indications: Afib, GI bleed Conclusion Normal left ventricular wall thickness and chamber size. Ejection fraction is 55%. Wall motion is normal Normal right ventricular size and function Both atria are normal in size There is no structural or hemodynamically significant valvular disease Wall motion Left Ventricle The left ventricle is normal size. The left ventricular systolic function is normal. The left ventricular ejection fraction is within the normal range. There is normal left ventricular wall thickness. There is normal LV segmental wall motion. There is no ventricular septal defect visualized. LVEF is 55%. Right Ventricle The right ventricle is normal size. The right ventricular systolic function is normal. Atria The left atrium size is normal. The right atrium size is normal. The interatrial septum is intact with no evidence for an atrial septal defect. Aortic Valve The aortic valve is normal in structure. Aortic valve is trileaflet. There is no aortic valvular stenosis. No aortic regurgitation is present. Mitral Valve The mitral valve is normal in structure. No evidence of mitral valve stenosis. Trace mitral regurgitation. Tricuspid Valve The tricuspid valve is normal in structure. There is no tricuspid valve stenosis. Trace to mild tricuspid regurgitation. The RVSP is 20.21 mmHg. Pulmonic Valve The pulmonary valve is normal in structure. There is no pulmonic valvular stenosis. Trace pulmonic regurgitation. Great Vessels The aortic root is normal in size. The ascending aorta is normal in size. Aortic arch is not well visualized. IVC is normal in size and collapses >50% with inspiration. Pericardium There is no pericardial effusion. 2D Dimensions IVSD d PLAX 0.89 cm F: 0.6-1.0Ao Root d 2.82 cm F: 2.7 - 3.3 LVPW d PLAX 0.87 cm F: 0.6 - 1.0Ao Asc Diam d 2.99 cm F: 2.3 - 3.1 LVID d PLAX 4.31 cm F: 3.8 - 5.2 LVDs 3.14 cm F: 2.2 - 3.5 LV EF Teichholz 53.1 % FS27.10 % LV EDV (Teich)83.4 mL LV ESV (Teich)39.1 mL Stroke Vol Index (Teich)25.29 M-Mode TAPSE 1.55 cm (M/F) >1.7 Auto EF LV EDV E9Z007.8 mLLV EDV A2C97.5 mLLV EDV BP104.3 mL LV ESV A4C52.7 mLLV ESV A2C45.1 mLLV ESV BP49.6 mL LVEF(%) A4C52.4 %LVEF(%) A2C53.8 %LVEF(%) BP52.4 % LV SV A4C58.1 mlLV SV A2C52.4 mlLV SV BP54.7 ml LV CO A4C4.3 L/minLV CO A2C4.0 L/minLV CO BP4.2 L/min HR A4C74.69 BPMHR A2C76.44 BPMLV EDV Index (BP) LA Volume LA Length A4C4.2 cmLA Length A2C4.8 cm LA Area A4C s 9.15 cm2LA Area A2C s 14.99 cm2 LA Vol A4C A-L17.08 mLLA Vol A2C A-L39.75 mLLA Vol Biplane A-L28.0 mL LA Vol/BSA A4C A-LLA Vol/BSA A2C A-LLA Vol/BSA BP A-L 16.0 mL/m2 LA Vol A4C MOD15.2 mLLA Vol A2C MOD36.3 mLLA Vol BP MOD25.2 mL RA Volume RA Area A4C9.2 cm2RA ESV A4C (A-L)20.5mLRA Vol/BSA A4C A-L RA Length A4C3.5 cmRA ESV A4C (MOD)19.3mL LV Diastology MV E' medial0.051 (>0.07 m/s)MV E Vmax 0.52 (0.4-1.3 m/s) MV E/E' MED10.09 (<14)MV A Vmax 1.10 (0.4-1.3 m/s) MV E' lateral0.057 (>0.1 m/s)E/A Ratio 0.5 MV E/E' LAT9.05 (<14) MV E' Average0.054 m/s MV E/E'(average)9.54 Aortic Valve AoV Vmax1.27 m/sLVOT Vmax 1.09 m/s AoV Peak Grad6.5 mmHgLVOT Peak Grad 4.7 mmHg AoV Area (Vmax)2.32 tb6SETB VTI0.253 m AoV VTI0.268 mLVOT Mean Grad 2.6 mmHg AoV Mean Apolinar.0.88 m/sLVOT SV 68.68 mL AoV Mean Grad3.6 mmHgLVOT Diam s 1.85 cm AoV Area (VTI)2.57 cm2AV Regurg Peak Gr.6.49 mmHg Velocity Ratio 0.86 Mitral Valve MV DT 189 (160-240 msec) MV Vmax TIPS 1.29 m/s MV Mean Grad 2.6 (<2mmHg) MV VTI 0.278 m Pulmonary Valve PV Vmax 1.10 (0.5-1.5 m/s)RVOT Vmax 0.77 m/s PV Peak Grad 4.8 mmHgRVOT Peak Gr.2.4 mmHg PV Mean Vel0.74 m/sRVOT VTI0.133 m PV Mean Grad 2.5 mmHgRVOT Mean Gr.1.0 mmHg Tricuspid Valve RA Pressure 3.00 mmHgTR Vmax 2.07 m/s TR Peak Grad 17.2 mmHg RVSP (TR) 20.2 mmHg Ordered By: Mihaela Dietz DO CC: Dictated By: Sophie Morris M.D. 03/16/24 1052 <Electronically signed by Sophie Morris M.D. in OV> 03/16/24 1131 Transcribed By: Sophie Morris MD 03/16/24 105 This is privileged, confidential information intended only for the provider named. Any use or distribution by any person other than this provider is strictly prohibited. If you receive this report in error, please notify us immediately at [phone] and return the original report to us at the address above. Thank-you. Anesthesia Assessment and Plan Anesthesia History Personal History: No History of Anesthesia Complications Family History: No Family History of Anesthesia Complications Exercise Tolerance Exercise Tolerance: Metabolic Equivalents>4 Pertinent Negatives Pertinent Negatives: No Symptoms of GERD Cardiac & Pulmonary Exam Cardiac Exam: Normal S1/S2 Heart Sounds Pulmonary Exam: Clear Bilateral Breath Sounds Implantable Cardiac Device Does patient have a Pacemaker or an ICD?: No Airway Exam Known Difficult Airway: No Mallampati Class: 3 Mouth Opening: Normal (> 3cm) Thyromental Distance: Less than 3 cm Neck Range of Motion: Full ROM Neck Circumference: Normal Teeth Condition: Edentulous ASA Classification ASA Score: ASA 3 Emergency Case?: Yes NPO Status NPO Status: NPO Clears >2 hours, Solids >8 hours Anesthesia Plan Resuscitation Status: DNR Fully Suspended During Perioperative Period Anesthesia Technique: General Anesthesia Airway Planned: Natural Airway Monitors Used: Standard Monitors
--- NOTE | 2024-03-16 17:38 | W.ANESPOSTOP ---
Postoperative Evaluation Date, Time and Location Date Performed: 03/16/24 Time Performed: 17:38 Patient Location: PACU Vital Signs Most Recent Imported Vital Signs: Most Recent Vital Signs Temp Pulse Resp BP Pulse Ox 36.0 C L 77 17 123/69 96 03/16/24 15:32 03/16/24 15:32 03/16/24 15:32 03/16/24 15:32 03/16/24 15:32 Pain Score Most Recent Pain Score: Most Recent Pain Score Pain Level 0 03/16/24 15:32 Assessment Mental Status: Arousable with meaningful communication Airway and Respiratory Function: Patent airway with normal (patient baseline) respiratory exam Cardiovascular Function: Hemodynamically Stable Hydration Status: Adequately Hydrated Nausea & Vomiting: No Nausea or Vomiting Pain: Pt. Denies Any Pain Peripheral Nerve Block: Patient did not receive a nerve block
--- NOTE | 2024-03-16 19:48 | W.PM.ENDDOP ---
Date of service: 03/16/24 Time of Service: 17:30 Endoscopy Report DATE OF PROCEDURE: 03/16/24 PRE-OP DIAGNOSIS: anemia POST-OP DIAGNOSIS: other (gastritis adn esophagitis) SURGEON: Mihaela Dietz ANESTHESIA TYPE: General:No Airway ESTIMATED BLOOD LOSS: 1 PATHOLOGY: other COMPLICATIONS: None DISPOSITION: PACU PROCEDURE DESCRIPTION: Informed consent was obtained from the pt; explaining the benefits and Risks: bleeding, infections, perforations {which could require surgery or antibiotics and prolonged hospital stay}, or ostomy, and complications of anaesthesia, robbie aspiration). The patient was take to the procedure room and placed in a supine position. Monitors were applied and a time out was done. The patients name, date of , procedure type, allergies to medications and metal in their body was reviewed. A bite block was placed and the patient was sedated. Once sedated and comfortable an Olympus gastroscope (see RN notes for scope #) was advanced through the oropharynx which was grossly normal, and passed into the esophagus. The proximal and mid-esophagus were normal. The distal esophagus does not show any: dilation/strictures/varices/erosions or ulcers/bleeding noted. There is mild esophagitis. The scope was advanced into the stomach and through the pylorus into the proximal jejunum. The duodenum was noted to be normal. The scope was retracted back into the stomach and biopsies were taken of the antrum. There were no /gastropathy/ ulcers/masses noted. There is mild gastritis noted. The scope was retroflexed. The cardia and fundus were noted to be normal. There is no hiatal hernia noted. 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 All specimens are retrieved and no bleeding was noted. The Z line was regular. The scope was removed and the patient was woken up and taken back to [facility] in stable condition.
--- NOTE | 2024-03-16 19:48 | W.PM.PROGNOT ---
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 Labs reviewed We reviewed the risks and benefits of the procedure. And patient will is agreeable and will proceed with EGD today. Objective Last Vital Signs Temp 36.2 C L 03/16/24 18:12 Pulse 70 03/16/24 18:12 Resp 14 03/16/24 18:12 BP 140/76 03/16/24 18:12 Pulse Ox 98 03/16/24 18:12 Laboratory Results - last 24 hr 03/15/24 03/15/24 03/16/24 14:43 20:00 00:10 WBC Cancelled 3.35 L RBC Cancelled 2.85 L Hgb Cancelled 7.9 L Hct Cancelled 25.0 L MCV Cancelled 88 D MCH Cancelled 27.7 MCHC Cancelled 31.6 L D RDW Cancelled 16.3 H Plt Count Cancelled 117 L MPV Cancelled 11.2 H Immature Gran % 2.4 Neutrophils % 51.7 Band Neutrophils % Lymphocytes % 32.5 Atypical Lymphs % Monocytes % 12.8 Eosinophils % 0.6 Basophils % 0.0 Metamyelocytes % Myelocytes % Promyelocytes % Other Cells % Nucleated RBC % 0.0 Absolute Neutrophils 1.73 Absolute Lymphocytes 1.09 L Absolute Monocytes 0.43 Absolute Eosinophils 0.02 Absolute Basophils 0.00 RBC Morphology Polychromasia Hypochromasia Poikilocytosis Basophilic Stippling Anisocytosis Microcytosis Macrocytosis Spherocytes Tear Drop Cells Ovalocytes Stomatocytes [place] Bodies Markus Cells/Echinocytes Acanthocytes (Spur) Schistocytes Sodium Potassium Chloride Carbon Dioxide Anion Gap BUN Creatinine Est GFR (CKD-EPI 2020) Glucose Calcium Crossmatch See Detail 03/16/24 03/16/24 00:21 06:39 WBC Cancelled 3.41 L RBC Cancelled 2.91 L Hgb Cancelled 8.0 L Hct Cancelled 25.5 L MCV Cancelled 88 MCH Cancelled 27.5 MCHC Cancelled 31.4 L RDW Cancelled 16.8 H Plt Count Cancelled 129 L MPV Cancelled 10.9 Immature Gran % Cancelled 2.3 Neutrophils % Cancelled 67.2 Band Neutrophils % Cancelled Lymphocytes % Cancelled 19.6 Atypical Lymphs % Cancelled Monocytes % Cancelled 10.3 Eosinophils % Cancelled 0.3 Basophils % Cancelled 0.3 Metamyelocytes % Cancelled Myelocytes % Cancelled Promyelocytes % Cancelled Other Cells % Cancelled Nucleated RBC % Cancelled 0.0 Absolute Neutrophils Cancelled 2.29 Absolute Lymphocytes Cancelled 0.67 L Absolute Monocytes Cancelled 0.35 Absolute Eosinophils Cancelled 0.01 Absolute Basophils Cancelled 0.01 RBC Morphology Cancelled Polychromasia Cancelled Hypochromasia Cancelled Poikilocytosis Cancelled Basophilic Stippling Cancelled Anisocytosis Cancelled Microcytosis Cancelled Macrocytosis Cancelled Spherocytes Cancelled Tear Drop Cells Cancelled Ovalocytes Cancelled Stomatocytes Cancelled [place] Bodies Cancelled Markus Cells/Echinocytes Cancelled Acanthocytes (Spur) Cancelled Schistocytes Cancelled Sodium 141 Potassium 3.9 Chloride 107 Carbon Dioxide 28.4 Anion Gap 5.6 BUN 17 Creatinine 0.6 Est GFR (CKD-EPI 2020) 90.12 Glucose 91 Calcium 8.5 Crossmatch Time Spent with Patient Time Spent with Patient: <25 minutes Time was spent: preparing to see the patient(eg.review tests), obtaining and/or reviewing separately otained hiistory, ordering medications,tests, procedures, referring, communicating with other health college and career counselor, indepentently interpreting results, counseling the patient, care coordination and other
[2024-03-16] MEDS: Acetaminophen 325 MG TAB 650 MG PO (21:17)
[2024-03-17 03:26] VITALS: BP 133/65; PULSE 75; RESP 16; TEMP 36.8; O2SAT 94
[2024-03-17 06:36] LABS: Abs Immature Grans 0.08 10^3/uL (0.0-0.06); Absolute Basophil Count 0.01 10^3/uL (0.0-0.2); Absolute Eosinophil Count 0.01 10^3/uL (0.0-0.7); Absolute Lymphocyte Count 0.66 10^3/uL (1.2-3.4); Absolute Monocyte Count 0.35 10^3/uL (0.1-0.8); Absolute Neutrophil Count 2.21 10^3/uL (1.2-6.7); Basophils % 0.3 %; Eosinophils % 0.3 %; HCT 26.8 % (36.0-46.0); HGB 8.2 g/dL (11.2-15.7); Immature Grans % 2.4 %; Lymphocytes % 19.9 %; MCH 27.1 pg (27.0-33.0); MCHC 30.6 % (32.0-36.0); MCV 88 fL (80-95); MPV 10.5 fL (8.0-11.0); Monocytes % 10.5 %; Neutrophils % 66.6 %; Nucleated RBC 0.6 % (0.0-0.3); Platelet Count 131 10^3/uL (130-400); RBC 3.03 10^6/uL (3.93-5.22); RDW 16.4 % (11.7-14.6); RDW-SD 53.1 fL; WBC 3.32 10^3/uL (4.4-10.8)
[2024-03-17 07:09] LABS: Anion Gap 7.3 mmol/L (3-11); BUN 14 mg/dL (7-18); CO2 25.7 mmol/L (21.0-32.0); CREATININE 0.5 mg/dL (0.55-1.02); Calcium 8.6 mg/dL (8.5-10.1); Chloride 104 mmol/L (98-107); Estimated GFR 94.17 (mL/min/1.73m2); Glucose 88 mg/dL (74-106); Potassium 3.5 mmol/L (3.5-5.1); Sodium 137 mmol/L (136-145)
[2024-03-17] MEDS: Sucralfate 1 GM TAB PO ×4 (07:35→21:15)
[2024-03-17] MEDS: Normal Saline Flush 10 ML SYR IVP ×2 (08:28→21:15)
[2024-03-17] MEDS: Cyanocobalamin 500 MCG TAB 1000 MCG PO (08:28)
[2024-03-17] MEDS: Sertraline 50 MG TAB 150 MG PO (08:28)
[2024-03-17] MEDS: Metoprolol CR 25 MG TABCR PO (08:29)
[2024-03-17] MEDS: Atorvastatin 40 MG TAB PO (08:29)
[2024-03-17] MEDS: Furosemide 20 MG TAB PO (08:29)
[2024-03-17] MEDS: Folic Acid 1 MG TAB PO (08:29)
[2024-03-17] MEDS: Docusate Sodium 100 MG CAP PO ×2 (08:29→21:15)
[2024-03-17] MEDS: Pantoprazole 40 MG VIAL IVP ×2 (08:30→21:16)
[2024-03-17 08:43] VITALS: BP 140/74; PULSE 80; RESP 16; TEMP 37.2; O2SAT 90
[2024-03-17 08:54] LABS: HCT 29.6 % (36.0-46.0); HGB 9.4 g/dL (11.2-15.7)
[2024-03-17 11:35] VITALS: BP 125/67; PULSE 75; RESP 17; TEMP 37; O2SAT 95
[2024-03-17] MEDS: Acetaminophen 325 MG TAB 650 MG PO (11:45)
--- NOTE | 2024-03-17 13:49 | PT.INTREAT ---
Date of service: 03/17/24 Time of Service: 10:45 PT Notes Visit Reasons: GIB,anemia A-fib Inpatient Physical Therapy Treatment Note [facility] Date: 03/17/2024 PRECAUTIONS: Fall, standard SUBJECTIVE: Agreeable to getting up into chair. Did appear a little confused. Indicated there were scissors under her bed. OBJECTIVE: ? Therapeutic Activities (36020k7): Direct one-on-one instruction in dynamic activities to improve functional performance. Assisted nursing with cleaning of bowel movement while in supine. Required mod assist with rolling and maintaining body positioning during cleaning. ? BED MOBILITY/TRANSFERS? Supine-sit: min A? Sit-stand: mod A with UE support to Steady Lift?. Cued for limb placement. Cued for upright positioning and postural engagement. ? Stand-sit: mod A ? Bed-Chair: Steady Lift, assist of 2 ? Provided skilled cues and instruction on performance and technique throughout.? Therapeutic Exercises (10271h5): Direct one-on-one instruction in therapeutic exercises to develop strength, endurance, range of motion and flexibility. ? Instructed in the following seated exercises: march 10x each, with need for continuous cues seated shoulder flexion supine and seated diagonal reach at 90* flexion; cues for forward weight shift and UE crossing midline. LAQ 10x each, with continuous cues ASSESSMENT:?Tolerated transfer with Steady lift very well. Continues to demonstrate some posterior pushing, requiring significant assistance for seated and standing activities. PLAN: Continue progressing as tolerated, with efforts to facilitate forward weight shift in sitting and standing positions. TREATMENT CODE/TIME: 15782a2, 10:45 to 11:10 DISCHARGE RECOMMENDATION: SNF ?
[2024-03-17 15:17] VITALS: BP 129/65; PULSE 75; RESP 14; TEMP 37.3; O2SAT 95
--- NOTE | 2024-03-17 17:39 | W.PM.PROGNOT ---
Date of Service Date of service: 03/17/24 Time of Service: 17:39 Assessment and Plan Assessment and plan (1) GI bleed: Status: Chronic Assessment and plan: H&H has been stable post transfusion PRBC continue PPI and carafate surgery consult with no plan to scope acutely (2) Anemia: Status: Chronic Assessment and plan: As above (3) Atrial fibrillation: Status: Chronic Assessment and plan: Continue metoprolol Hold Rivaroxaban and ASA PAIGE for DVT prophylaxis (4) Pulmonary emboli: Status: Chronic Assessment and plan: History of PE on rivaroxaban Will hold for now - awaiting 48 hours no bleeding to consider restarting Discussed with Dr. Dupont Subjective Subjective Patient reports: no new complaints; denies tolerating liquids well (thickening fluids) Objective Last Vital Signs Temp 37.3 C 03/17/24 15:17 Pulse 75 03/17/24 15:17 Resp 14 03/17/24 15:17 BP 129/65 03/17/24 15:17 Pulse Ox 95 03/17/24 15:17 Laboratory Results - last 24 hr 03/17/24 03/17/24 06:01 08:40 WBC 3.32 L RBC 3.03 L Hgb 8.2 L 9.4 L Hct 26.8 L 29.6 L MCV 88 MCH 27.1 MCHC 30.6 L RDW 16.4 H Plt Count 131 MPV 10.5 Immature Gran % 2.4 Neutrophils % 66.6 Lymphocytes % 19.9 Monocytes % 10.5 Eosinophils % 0.3 Basophils % 0.3 Nucleated RBC % 0.6 H Absolute Neutrophils 2.21 Absolute Lymphocytes 0.66 L Absolute Monocytes 0.35 Absolute Eosinophils 0.01 Absolute Basophils 0.01 Sodium 137 Potassium 3.5 Chloride 104 Carbon Dioxide 25.7 Anion Gap 7.3 BUN 14 Creatinine 0.5 L Est GFR (CKD-EPI 2020) 94.17 Glucose 88 Calcium 8.6 Time Spent with Patient Time Spent with Patient: 25-34 minutes Time was spent: preparing to see the patient(eg.review tests), obtaining and/or reviewing separately otained hiistory, ordering medications,tests, procedures, indepentently interpreting results and counseling the patient
[2024-03-17 19:51] VITALS: BP 127/75; PULSE 78; RESP 15; TEMP 36.6; O2SAT 95
[2024-03-17 23:09] VITALS: BP 131/71; PULSE 80; RESP 16; TEMP 37.2; O2SAT 94
--- NOTE | 2024-03-17 23:15 | RT.EKG_ITS ---
APPROVED REPORT Exam: Resting ECG Reason for Exam: ST elevation v lead? Patient Location: I HR:80 bpm ECG Measurements Heart Rate 80 AXIS CA 207 P 50 QRSd 184 QRS -3 QT 428 T 27 QTc 494 Conclusion Sinus rhythm...normal P axis, V-rate 50- 99 Probable left atrial enlargement...P >50mS, <-0.10mV V1 Left bundle branch block...QRSd>120, broad/notched R
--- NOTE | 2024-03-17 23:48 | PGE_ITS ---
Date of Service Date of service: 03/17/24 Time of Service: 12:30 Assessment and Plan Assessment and plan (1) Iron deficiency anemia due to chronic blood loss: Status: Acute Assessment and plan: Patient received 2 doses IV Venofer and will start on oral iron supplementation Continue Carafate ACHS and PPI daily No aspirin or NSAIDs Okay to resume anticoagulation Continue to trend hemoglobins. Patient would be high risk for colonoscopy because of the electrolytes and her cardiac status. Although her last echo was surprisingly better than her echo from [facility]. Alternatively could consider CT with contrast if her renal function supports this Will follow peripherally This document was created with voice activated software and may contain errors. 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 She is currently eating her lunch. She does require assistance to feed. She denies any sore throat. She.denies any chest pain or shortness of breath. She denies vomiting after the procedure. Her abdomen is soft and nontender. +BMblack Objective Last Vital Signs Temp 37.2 C 03/17/24 23:09 Pulse 80 03/17/24 23:09 Resp 16 03/17/24 23:09 BP 131/71 03/17/24 23:09 Pulse Ox 94 03/17/24 23:09 Laboratory Results - last 24 hr 03/17/24 03/17/24 06:01 08:40 WBC 3.32 L RBC 3.03 L Hgb 8.2 L 9.4 L Hct 26.8 L 29.6 L MCV 88 MCH 27.1 MCHC 30.6 L RDW 16.4 H Plt Count 131 MPV 10.5 Immature Gran % 2.4 Neutrophils % 66.6 Lymphocytes % 19.9 Monocytes % 10.5 Eosinophils % 0.3 Basophils % 0.3 Nucleated RBC % 0.6 H Absolute Neutrophils 2.21 Absolute Lymphocytes 0.66 L Absolute Monocytes 0.35 Absolute Eosinophils 0.01 Absolute Basophils 0.01 Sodium 137 Potassium 3.5 Chloride 104 Carbon Dioxide 25.7 Anion Gap 7.3 BUN 14 Creatinine 0.5 L Est GFR (CKD-EPI 2020) 94.17 Glucose 88 Calcium 8.6 Time Spent with Patient Time Spent with Patient: 25-34 minutes Time was spent: preparing to see the patient(eg.review tests), obtaining and/or reviewing separately otained hiistory, ordering medications,tests, procedures, referring, communicating with other health patient care provider, indepentently interpreting results, counseling the patient, care coordination and other
--- NOTE | 2024-03-18 | DI.RAD_ITS ---
Exam(s) XR ABDOMEN FLAT PLATE EXAM: 2D digital imaging was performed. CLINICAL HISTORY: Nausea, pain. COMPARISON: No exams were available for comparison TECHNIQUE: Supine views of the abdomen performed. FINDINGS: BOWEL GAS PATTERN: Large quantity of stool seen throughout the colon. Stomach and small bowel are no ndistended. CALCIFICATIONS: No radiopaque calcifications. OSSEOUS STRUCTURES: Urinary tract calculi would likely be obscured by large quantity of stool. OTHER FINDINGS: Right upper quadrant surgical clips. Lung bases are clear. Heart mildly enlarged. IMPRESSION: 1. Nonobstructive bowel gas pattern. Large quantity of stool. DATA REPOSITORY: RADIATION DOSE DELIVERED:
[2024-03-18 03:01] VITALS: BP 131/64; PULSE 79; RESP 14; TEMP 36.9; O2SAT 95
[2024-03-18 06:50] LABS: HCT 38.6 % (36.0-46.0); HGB 12.6 g/dL (11.2-15.7)
[2024-03-18 07:54] VITALS: BP 147/84; PULSE 81; RESP 18; TEMP 37.1; O2SAT 95
[2024-03-18] MEDS: Sertraline 50 MG TAB 150 MG PO (08:26)
[2024-03-18] MEDS: Atorvastatin 40 MG TAB PO (08:26)
[2024-03-18] MEDS: Folic Acid 1 MG TAB PO (08:27)
[2024-03-18] MEDS: Cyanocobalamin 500 MCG TAB 1000 MCG PO (08:27)
[2024-03-18] MEDS: Furosemide 20 MG TAB PO (08:27)
[2024-03-18] MEDS: Metoprolol CR 25 MG TABCR PO (08:27)
[2024-03-18] MEDS: Pantoprazole 40 MG VIAL IVP ×2 (08:28→20:02)
[2024-03-18] MEDS: Sucralfate 1 GM TAB PO ×4 (08:28→23:04)
[2024-03-18] MEDS: Docusate Sodium 100 MG CAP PO ×3 (08:28→20:03)
[2024-03-18] MEDS: Normal Saline Flush 10 ML SYR IVP ×7 (08:29→20:02)
[2024-03-18] MEDS: IRON SUCROSE COMPLEX 200 MG in Normal Saline 100 ML 400 MG IVPB (09:40)
[2024-03-18] MEDS: Normal Saline 1,000 ML 30 ML IV (09:41)
--- NOTE | 2024-03-18 10:55 | W.PM.PROGNOT ---
Date of Service Date of service: 03/18/24 Time of Service: 10:56 Assessment and Plan Assessment and plan (1) GI bleed: Status: Chronic Assessment and plan: H&H remains stable status post PRBC post transfusion x2 On protonix and sucralfate surgery consult EGD completed:mild esophagitis CBC in a.m. (2) Anemia: Status: Chronic Assessment and plan: As above Iron sucrose ordered as per surgery and completed Now on oral iron supplementation (3) Atrial fibrillation: Status: Chronic Assessment and plan: Most likely paroxysmal atrial fibrillation as the patient is now sinus rhythm on telemetry. Will continue metoprolol Restart Rivaroxaban PAIGE for DVT prophylaxis (4) Pulmonary emboli: Status: Chronic Assessment and plan: History of PE on rivaroxaban Will restart rivaroxaban?20 for 48 hours without acute bleeding and stable hemoglobin (5) Constipation: Status: Acute Assessment and plan: In the setting of increased nausea and abdominal pain as well as continuous oozing of liquid stool?flatplate of the abdomen completed showing mild-moderate constipation Pain managed with scheduled acetaminophen Mag citrate oral ordered by Dr. Dietz (6) Discharge planning issues: Status: Acute Assessment and plan: Most likely to be discharged to [facility] in the morning Discussed with Dr. Dupont Subjective Subjective Patient reports: tolerating liquids well, tolerating a regular diet, voiding w/o difficulty, flatus, bowel movement and nausea; denies blood in stool, shortness of breath or fever Exam Narrative Exam Narrative: Constitutional The patient is in bed, somnolent status post Compazine IV for nausea?is arousable to voice stimuli and obeys command HENMT: Facial structures with normal appearance Eyes: Well aligned Neuro:alert and oriented to self, without neurological focal deficit Resp:Unlabored breathing, clear lung bilaterally Cardio: Sinus rhythm 74 on telemetry, S1, S2, no murmur, positive bilateral radial and pedal pulses GI: Abdomen is not distended, soft and tender to left lower quadrant with mild epigastric tenderness, bowel sounds are present : No bladder distension Integumentary:No skin lesions or rash Extremities: Deferred Psych: RASS 0 to -1, congruent mood and normal affect. Objective Last Vital Signs Temp 37.1 C 03/18/24 07:54 Pulse 81 03/18/24 07:54 Resp 18 03/18/24 07:54 BP 147/84 H 03/18/24 07:54 Pulse Ox 95 03/18/24 07:54 Laboratory Results - last 24 hr 03/18/24 06:02 Hgb 12.6 D Hct 38.6 Time Spent with Patient Time Spent with Patient: >50 minutes Time was spent: preparing to see the patient(eg.review tests), obtaining and/or reviewing separately otained hiistory, ordering medications,tests, procedures, referring, communicating with other health career services assistant, indepentently interpreting results, counseling the patient and care coordination
[2024-03-18] MEDS: Prochlorperazine 10 MG/2 ML VIAL 5 MG IVP (12:01)
--- NOTE | 2024-03-18 13:10 | DI.VRAD_ITS ---
PROCEDURE INFORMATION: Exam: XR Abdomen Exam date and time: 03/18/2024 12:22 PM Age: 83 years old Clinical indication: Other: Nausea, pain TECHNIQUE: Imaging protocol: Radiologic exam of the abdomen. Views: Frontal supine view of the abdomen. 1 View. COMPARISON: No relevant prior studies available. FINDINGS: Gastrointestinal tract: There is moderate formed stool throughout the colon consistent with at least [id number] constipation. There is no abnormal gross bowel distension. There is no organomegaly. There are surgical clips in the right upper quadrant of the abdomen consistent with a prior cholecystectomy. There is a 6 mm oval calcification in the left upper quadrant which could be overlying the left kidney and represent nephrolithiasis. This could also represent simple mesenteric node calcification. Bones/joints: There are mild degenerative changes of the lumbar spine without acute bony change. IMPRESSION: 1. Findings consistent with [id number] constipation. 2. Calcification in the left upper quadrant which could represent nephrolithiasis. If clinically indicated recommend more sensitive evaluation with a ultrasound or CT scan. Dictated and Authenticated by: Bryant Peña MD. Ordering:HUA Cotton MD
[2024-03-18] MEDS: ACETAMINOPHEN 1,000 MG/100 ML BTL 400 MG IVPB (13:12)
--- NOTE | 2024-03-18 14:05 | PT.INTREAT ---
Date of service: 03/18/24 Time of Service: 11:51 PT Notes Visit Reasons: GIB,anemia A-fib Inpatient Physical Therapy Treatment Note [facility] Date: 03/18/2024 PRECAUTIONS: Fall, standard SUBJECTIVE: Not feeling very well today. Indicated she has had a KWAN and stomach ache since last night. OBJECTIVE: ? Patient was up in chair when I arrived to room. Had been gotten up with nursing using Stedy Lift. ? Therapeutic Exercises (46755h2): Direct one-on-one instruction in therapeutic exercises to develop strength, endurance, range of motion and flexibility. Instructed in the following seated exercises: Verbal and tactile cueing given with each exercise. August x 10 reps Seated shoulder flexion from lap to 60-80 degrees x 10 reps Seated diagonal reach at 90* flexion; cues for forward weight shift and UE crossing midline for 10 reps each LAQ x 10 reps each Seated hip abd/ adduction x 10 reps each Ankle pumps x 10 reps ASSESSMENT:?Tolerated transfer with Steady lift very well. Continues to demonstrate some posterior pushing, requiring significant assistance for seated and standing activities. PLAN: Continue progressing as tolerated, with efforts to facilitate forward weight shift in sitting and standing positions. TREATMENT CODE/TIME: [id number], 11:51 to 12:01 (10'), patient ended up going to [facility], so was not able to work on transfer chair to bed. DISCHARGE RECOMMENDATION: SNF ?
--- NOTE | 2024-03-18 15:16 | PGE_ITS ---
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 (4) Esophagitis determined by endoscopy: Status: Acute (5) Anemia: Status: Chronic (6) Iron deficiency anemia due to chronic blood loss: Status: Acute (7) Immunosuppression: Status: Acute (8) Rheumatoid arthritis: Status: Chronic (9) Edentulous: Status: Acute (10) Hx of completed stroke: Status: Acute (11) CAD (coronary artery disease): Status: Chronic (12) Low left ventricular ejection fraction: Status: Acute (13) Hx of acute myocardial infarction: Status: Acute (14) Memory dysfunction: Status: Acute (15) Constipation: Status: Acute Subjective Subjective Interval history since last seen: pt c/o of abdominal pain today xray show constipation. anemia- hgb went from 9.4-12 today. I think this is in error pt BP stable and no CP. Mg Citrate for constipation will re-eval at your request Objective Last Vital Signs Temp 37.1 C 03/18/24 07:54 Pulse 81 03/18/24 07:54 Resp 18 03/18/24 07:54 BP 147/84 H 03/18/24 07:54 Pulse Ox 95 03/18/24 07:54 Laboratory Results - last 24 hr 03/18/24 06:02 Hgb 12.6 D Hct 38.6 Time Spent with Patient Time Spent with Patient: <25 minutes Time was spent: ordering medications,tests, procedures, referring, communicating with other health early breastfeeding care specialist, indepentently interpreting results and care coordination
[2024-03-18 15:26] VITALS: BP 132/70; PULSE 68; RESP 18; TEMP 36.8; O2SAT 100
[2024-03-18] MEDS: Magnesium Citrate 300 ML BTL 150 ML PO (16:19)
[2024-03-18] MEDS: Rivaroxaban 10 MG TABLET 20 MG PO (18:02)
[2024-03-18 19:40] VITALS: BP 113/59; PULSE 70; RESP 18; TEMP 36.7; O2SAT 95
[2024-03-19 00:34] VITALS: BP 113/63; PULSE 69; RESP 18; TEMP 36.1; O2SAT 94
[2024-03-19 03:15] VITALS: BP 103/62; PULSE 71; RESP 18; TEMP 36.3; O2SAT 97
[2024-03-19] MEDS: Sucralfate 1 GM TAB PO ×2 (07:23→11:10)
[2024-03-19 07:57] VITALS: BP 114/72; PULSE 70; RESP 20; TEMP 36.6; O2SAT 93
[2024-03-19] MEDS: Atorvastatin 40 MG TAB PO (08:05)
[2024-03-19] MEDS: Furosemide 20 MG TAB PO (08:06)
[2024-03-19] MEDS: Cyanocobalamin 500 MCG TAB 1000 MCG PO (08:07)
[2024-03-19] MEDS: Metoprolol CR 25 MG TABCR PO (08:07)
[2024-03-19] MEDS: Sertraline 50 MG TAB 150 MG PO (08:07)
[2024-03-19] MEDS: Docusate Sodium 100 MG CAP PO (08:07)
[2024-03-19] MEDS: Folic Acid 1 MG TAB PO (08:07)
[2024-03-19] MEDS: Normal Saline Flush 10 ML SYR IVP (08:08)
[2024-03-19] MEDS: Pantoprazole 40 MG VIAL IVP (08:08)
[2024-03-19 10:24] LABS: HCT 28.9 % (36.0-46.0); MCH 27.1 pg (27.0-33.0); MCHC 29.8 % (32.0-36.0); MCV 91 fL (80-95); MPV 10.4 fL (8.0-11.0); Platelet Count 151 10^3/uL (130-400); RBC 3.17 10^6/uL (3.93-5.22); RDW 16.3 % (11.7-14.6); RDW-SD 52.7 fL; WBC 3.89 10^3/uL (4.4-10.8)
[2024-03-19 10:37] LABS: Anion Gap 10.2 mmol/L (3-11); BUN 18 mg/dL (7-18); CO2 26.8 mmol/L (21.0-32.0); CREATININE 0.6 mg/dL (0.55-1.02); Chloride 107 mmol/L (98-107); Estimated GFR 90.12 (mL/min/1.73m2); Glucose 176 mg/dL (74-106); Potassium 3.6 mmol/L (3.5-5.1); Sodium 144 mmol/L (136-145)
[2024-03-19 10:43] LABS: Haptoglobin 217 mg/dL (32-197)
[2024-03-19 10:49] LABS: Absolute Basophil Count 0.04 10^3/uL (0.0-0.2); Absolute Eosinophil Count 0.04 10^3/uL (0.0-0.7); Absolute Lymphocyte Count 0.78 10^3/uL (1.2-3.4); Absolute Monocyte Count 0.23 10^3/uL (0.1-0.8); Absolute Neutrophil Count 2.76 10^3/uL (1.2-6.7); Diff Comment Manual Differential; Metamyelocytes % 1; RBC Morphology Normal
[2024-03-19 11:02] LABS: HGB 8.6 g/dL (11.2-15.7)
--- NOTE | 2024-03-19 11:46 | CMDISCH_ITS ---
Date of service: 03/19/24 Time of Service: 11:46 LACE Index Scoring Tool Questions: Length of Stay (in days): 4 - 6 Was the patient admitted via the E.D.?: Yes Comorbidities: Cerebrovascular Disease E.D. Visits: 2 Answers: Total Score: 10 Risk of Readmission: High Risk Care Management Discharge Plan Reason for Hospitalization: GI bleed, anemia, Afib Discharge Plan: Kaitlin will return to [facility] today, where she resides. She will transport via facility w/c van, coordinated by CM. She will follow up with facility providers and her discharge plan of care. Patient/Family Education Needs: Review discharge instructions and limitations, discussion of self care needs including ask me three. Services Needed at Discharge: [facility] Facility ([facility]) and Transportation (facility w/c van) [facility] Health Related Social Needs: No Data to Display
--- NOTE | 2024-03-19 13:05 | W.PM.DS.N ---
Date of service: 03/19/24 Time of Service: 13:05 DS: Diagnosis Discharge Diagnosis (1) GI bleed: Status: Chronic (2) Anemia: Status: Chronic (3) Atrial fibrillation: Status: Chronic (4) Pulmonary emboli: Status: Chronic (5) Constipation: Status: Acute (6) Discharge planning issues: Status: Acute Discharge Plan Disposition Patient Disposition: Care Home Facility(SNF) Condition: Improving Discharge Details Reason For Visit: GIB,anemia A-fib Admit Date/Time: 03/15/24 16:34 Admit Provider: Kp Dupont Attending Provider: Kp Dupont Primary Care Provider: Jay Jay Villatoro Hospital Course Hospital Course: 83-year-old female with a history of heart failure with reduced ejection fraction, COPD, coronary artery disease, rheumatoid arthritis, A-fib on rivaroxaban, PE, presenting to the emergency room at [facility] on 03/15/2024 for evaluation of complaints of GI bleed from [facility]. On arrival to the ED, the patient reported a few episodes of bloody stools over the last month with darker stools. Outpatient labs completed showed an H&H of 6.1 and 20.8; repeated blood work in the emergency room was significant for H&H 6.1 and 20.8, BUN was 22. Hemoccult on stool obtained during rectal rectal exam was positive. Surgery was also consulted with no recommendation for surgical intervention at the time. Hospitalist was consulted and patient admitted to the medical surgical floor for gastrointestinal bleed and anemia. The plan was to initiate transfusion of 2 units of PRBC in the emergency room.The patient reported feeling dizzy, lightheaded with blurry vision and seeing spots in front of her eyes, epigastric pain the day prior to presentation and feeling tired. The patient denied chest pain, shortness of breath, hematemesis, nausea, vomiting, diarrhea, or dysuria. The patient confirmed that she does not want CPR or intubation, thus the patient is a DNR/DNI. During the stay, an EGD was completed by surgery with findings of esophagitis and gastritis. The patient continued to receive proton pump inhibitors; was on daily Protonix and was now on twice daily dosing. Sucralfate before meals and at bedtime as were added to the patient regimen. Both aspirin and rivaroxaban were held and restarted 48 hours status post presentation as the patient had no further signs of bleeding. Chronic medical conditions were managed as per outpatient medicine regimen. Surgery elected to give 1 dose of iron sucrose IV to the patient and daily iron replacement was initiated as patient was found to be 6. Physical therapy was completed recommendations for transfer with steady lift; the patient on note was known to be nonambulatory and wheelchair-bound at the correction.The patient will be discharged to [facility] today. Discussed with Dr. Higgins [place] Meds and New Rx's Prescriptions: New docusate sodium [Colace] 100 mg Capsule 100 mg PO DAILY Qty: 30 0RF Slow Release Iron 140 mg (45 mg iron) Tablet Extended Release 142 mg PO DAILY Qty: 30 0RF sucralfate 1 gram Tablet 1 g PO AC & HS Qty: 120 0RF Continued acetaminophen 325 mg capsule 650 mg PO Q4H PRN aspirin [Adult Aspirin Regimen] 81 mg tablet,delayed release (DR/EC) 81 mg PO DAILY atorvastatin 40 mg tablet 40 mg PO DAILY ergocalciferol (vitamin D2) [Drisdol] 1,250 mcg (50,000 unit) capsule 50,000 unit PO QWEEK bisacodyl 10 mg suppository 10 mg WI DAILY PRN Enema 19-7 gram/118 mL enema 118 ml WI DAILY PRN folic acid 1 mg tablet 1,000 mcg PO DAILY furosemide 20 mg tablet 20 mg PO DAILY metoprolol succinate 25 mg tablet extended release 24 hr 25 mg PO DAILY magnesium hydroxide [Milk of Magnesia] 400 mg/5 mL suspension 5 ml PO DAILY PRN polyethylene glycol 3350 [ClearLax] 17 gram/dose powder 4.25 g PO ONCE rivaroxaban 20 mg tablet 20 mg PO DAILY Rx Instructions: must administer with evening meal cyanocobalamin (vitamin B-12) 1,000 mcg capsule 1,000 mcg PO DAILY methotrexate sodium 2.5 mg tablet 7.5 mg PO .WEEKLY sertraline 100 mg tablet 100 mg PO DAILY sertraline 50 mg tablet 50 mg PO DAILY Changed pantoprazole 40 mg tablet,delayed release (DR/EC) 40 mg PO BID Qty: 0 0RF Discharge Instructions Activity:: Activity as Tolerated Equipment/Supplies:: W/C Diet:: heart healthy Discharge Orders Discharge Orders: Discharge Order (Routine); Ordered 03/19/24 Ordered By: Lula Bucio DS: Summary Time Spent with Patient providing and/or coordinating discharge services: Greater than 30 minutes Status at Discharge Functional status at discharge: wheelchair bound Overall status at discharge: patient is progressing back to baseline Mental Status: mental status grossly normal Speech and Movement: speech and movement normal Mood: congruent mood Affect: normal affect Quality:SDOH Health Related Social Needs: No Data to Display Exam Narrative Exam Narrative: Constitutional The patient is in bed, somnolent status post Compazine IV for nausea?is arousable to voice stimuli and obeys command HENMT: Facial structures with normal appearance Eyes: Well aligned Neuro:alert and oriented to self, without neurological focal deficit Resp:Unlabored breathing, clear lung bilaterally Cardio: Sinus rhythm 71 on telemetry, S1, S2, no murmur, positive bilateral radial and pedal pulses GI: Abdomen is not distended, soft and non-tender, bowel sounds are present : No bladder distension Integumentary:No skin lesions or rash Psych: RASS 0 , congruent mood and normal- sad affect. Psych Mental Status: mental status grossly normal Speech and Movement: speech and movement normal Mood: congruent mood Affect: normal affect DS: Data Vitals/I&O Vitals and I&O: Vital Signs Temperature 36.6 C 03/19/24 07:57 Temperature Source Tympanic 03/19/24 07:57 Pulse 70 03/19/24 07:57 Pulse Rhythm Regular 03/15/24 18:21 Pulse 82 03/15/24 17:01 Respiratory Rate 20 03/19/24 07:57 Respiratory Effort Normal, Non-Labored 03/15/24 18:21 Respiratory Depth Normal 03/15/24 18:21 Respiratory Pattern Normal 03/15/24 18:21 Blood Pressure 114/72 03/19/24 07:57 Blood Pressure Mean 92 03/15/24 17:01 Blood Pressure Position Sitting 03/15/24 14:25 Pulse Oximetry 93 03/19/24 07:57 Respiratory End-tidal CO2 32 03/16/24 17:44 Oxygen Delivery Method Room Air 03/19/24 07:57 Oxygen Flow Rate 0 03/19/24 07:57 Pain Level 8 03/18/24 15:26 Intake & Output 03/18/24 03/19/24 03/19/24 23:59 11:59 23:59 Intake Total .5 / Balance 20 / 451.5 / 220 Intake: IV 20 / 71.5 20 20 Oral 200 / 200 Other: Urine Color Yellow Urine Odor Strong Comment very small amount of urine at this time, brief changed., Stool Size Large Moderate Stool Characteristics Liquid Liquid Brown Voiding Methods Diaper Diaper Incontinent Incontinent Data Completed and Pending Labs on day of discharge: Labs from last 24 hours 03/19/24 03/15/24 10:18 14:43 WBC 3.89 L RBC 3.17 L Hgb 8.6 L D Hct 28.9 L MCV 91 MCH 27.1 MCHC 29.8 L RDW 16.3 H Plt Count 151 MPV 10.4 Immature Gran % 0.0 Neutrophils % 71.0 Lymphocytes % 20.0 Monocytes % 6.0 Eosinophils % 1.0 Basophils % 1.0 Metamyelocytes % 1 Nucleated RBC % 0.0 Absolute Neutrophils 2.76 Absolute Lymphocytes 0.78 L Absolute Monocytes 0.23 Absolute Eosinophils 0.04 Absolute Basophils 0.04 RBC Morphology Normal Sodium 144 Potassium 3.6 Chloride 107 Carbon Dioxide 26.8 Anion Gap 10.2 BUN 18 Creatinine 0.6 Est GFR (CKD-EPI 2020) 90.12 Glucose 176 H Calcium 9.0 Crossmatch See Detail PFSH All Active Problems (Updated 03/18/24 @ 17:27 by Lula Bucio APRN) Discharge planning issues (Acute) Constipation (Acute) Memory dysfunction (Acute) Hx of acute myocardial infarction (Acute) Low left ventricular ejection fraction (Acute) CAD (coronary artery disease) (Chronic) Hx of completed stroke (Acute) Edentulous (Acute) Gastritis (Acute) Esophagitis determined by endoscopy (Acute) Iron deficiency anemia due to chronic blood loss (Acute) Pulmonary emboli (Chronic) Atrial fibrillation (Chronic) Immunosuppression (Acute) Rheumatoid arthritis (Chronic) Hx of custodial use of blood thinners (Acute) GI bleed (Chronic) Anemia (Chronic) Social History Smoking/Tobacco Use Status: Never Smoking risk assessment performed?: Yes Alcohol Intake: former Drug use: Never Substance use type: does not use Housing: correction Do you feel safe at home: Yes Do you feel safe in your relationship?: Yes Time Spent with Patient Time Spent with Patient: >85 minutes Time was spent: preparing to see the patient(eg.review tests), obtaining and/or reviewing separately otained hiistory, ordering medications,tests, procedures, referring, communicating with other health customer care specialist, indepentently interpreting results, counseling the patient and care coordination
--- NOTE | 2024-03-19 15:28 | PT.INTREAT ---
PT Notes Visit Reasons: GIB,anemia A-fib Inpatient Physical Therapy Treatment Note [facility] Date: 03/19/2024 PRECAUTIONS: Fall, standard SUBJECTIVE: Pt reports she is feeling good today. Pt reports at her facility she has been a 2 assist one person on each side and pivots into chair. OBJECTIVE: Pt out of bed to chair with nursing prior to PT. ? Therapeutic Activity(23483): Pt participated in trunk anterior facilitation with BUE on a stationary chair placed in front of her for 3 min then returned to midline without trunk support and able to sustain withUE support on her knees for 3mins. P Pt able to perform sit to 3/4 stand with BUE WB through the armrests of a chair placed in front of her ( this PT seating on the chair) x 4 trials with min A and verbal cues to straighten her legs. Pt tolerated this 3/4 stand for 15 sec x 1 20 sec x 2 and 31 sec x 1. between stand trials pt participated in gastroch and soleus stretching AAROM ASSESSMENT:?Pt responded very well to technique of increasing forward lean prior to standing trials with use of chair and PT infront to provide assistance. Pt demonstrates potential to perform stand step turn transfers with further skilled PT . Pt would also benefit from heel lifts in shoes for all transfers to promote anterior weight shift and thereby reduce retropulsion. Session shortened by pt's need to use the bathroom. PLAN: Continue progressing as tolerated, with efforts to facilitate forward weight shift in sitting and standing positions. TREATMENT CODE/TIME: [id number] units 28 mins/ [id number] DISCHARGE RECOMMENDATION: SNF ?
== END 2024-03-19 14:00 | disposition skilled nursing facility (03) | DRG 378 ==
LOC: ER 16:58 → MS 17:51
PROVIDERS: Nurse Practitioner Acute Care; Surgery; Admitting Provider Internal Medicine; Emergency Provider Student in an Organized Health Care Education/Training Program; PCP Family Medicine; Visit Provider Internal Medicine
PROC: 0DJ68ZZ Inspection of Stomach, Via Natural or Artificial Opening Endoscopic (ICD-10-PCS; CPT 43235; principal; 2024-03-16 15:00)
DX: K29.71 Gastritis, unspecified, with bleeding (principal); D84.821 Immunodeficiency due to drugs; I50.20 Unspecified systolic (congestive) heart failure; D50.0 Iron deficiency anemia secondary to blood loss (chronic); K20.91 Esophagitis, unspecified with bleeding; K08.109 Complete loss of teeth, unspecified cause, unspecified class; I25.10 Atherosclerotic heart disease of native coronary artery without angina pectoris; I25.2 Old myocardial infarction; R41.3 Other amnesia; K59.00 Constipation, unspecified; Z86.73 Personal history of transient ischemic attack (TIA), and cerebral infarction without residual deficits; Z86.711 Personal history of pulmonary embolism; J44.9 Chronic obstructive pulmonary disease, unspecified; Z79.01 Long term (current) use of anticoagulants; M06.8A Other specified rheumatoid arthritis, other specified site; Z66 Do not resuscitate; R42 Dizziness and giddiness; Z79.631 Long term (current) use of antimetabolite agent; I48.0 Paroxysmal atrial fibrillation; K22.89 Other specified disease of esophagus
CPT/HCPCS: 43239; 00123; 36415; 36430; 80048; 80053; 85027; 86850; 86900; 86901; 86920; 87641; 88305; 93005; 97110; 97162; 97530; 99222; 99231; 99232; 99285; 74018; 82607; 82728; 82746; 83010; 83615; 83735; 84484; 85014; 85018; 85025; 85045; 93010; 93306; 99223; 99233; 99239; J0131; J0780; J1756; J2003; J2470; J2704; J3490; P9016

== ENCOUNTER 2024-03-15 15:24 | Outpatient (REF) | payer MEDICARE, SELFPAY ==
[2024-03-15 13:18] LABS: MCH 26.9 pg (27.0-33.0); MCHC 29.3 % (32.0-36.0); MCV 92 fL (80-95); MPV 11.3 fL (8.0-11.0); Platelet Count 162 10^3/uL (130-400); RBC 2.27 10^6/uL (3.93-5.22); RDW 16.9 % (11.7-14.6); WBC 3.06 10^3/uL (4.4-10.8)
[2024-03-15 13:29] LABS: HCT 20.8 % (36.0-46.0); HGB 6.1 g/dL (11.2-15.7)
[2024-03-15 13:30] LABS: ALT 12 U/L (14-59); AST 9 U/L (15-37); Albumin 3.3 g/dL (3.4-5.0); Alkaline Phosphatase 82 U/L (46-116); BUN 18 mg/dL (7-18); Bilirubin, Total 0.25 mg/dL (0.2-1.0); CREATININE 0.6 mg/dL (0.55-1.02); Calcium 9.6 mg/dL (8.5-10.1); Chloride 105 mmol/L (98-107); Estimated GFR 90.12 (mL/min/1.73m2); Glucose 99 mg/dL (74-106); Potassium 4.1 mmol/L (3.5-5.1); Sodium 142 mmol/L (136-145); Total Protein 6.6 g/dL (6.4-8.2)
== END 2024-03-15 15:25 | disposition home or self-care (01) ==
LOC: LBN 15:24
PROVIDERS: PCP Family Medicine; Visit Provider Family Medicine
DX: Z79.631 Long term (current) use of antimetabolite agent (principal)
CPT/HCPCS: 80053; 85027

== ENCOUNTER 2024-03-30 16:14 | Outpatient (REF) | payer MEDICARE, SELFPAY ==
[2024-03-30 15:00] LABS: HCT 32.5 % (36.0-46.0); HGB 9.8 g/dL (11.2-15.7); MCH 28.9 pg (27.0-33.0); MCHC 30.2 % (32.0-36.0); MCV 96 fL (80-95); MPV 10.8 fL (8.0-11.0); Platelet Count 188 10^3/uL (130-400); RBC 3.39 10^6/uL (3.93-5.22); RDW 19.5 % (11.7-14.6); RDW-SD 68.2 fL; WBC 3.04 10^3/uL (4.4-10.8)
[2024-03-30 15:04] LABS: Anion Gap 8.6 mmol/L (3-11); BUN 21 mg/dL (7-18); CO2 28.4 mmol/L (21.0-32.0); CREATININE 0.6 mg/dL (0.55-1.02); Calcium 8.9 mg/dL (8.5-10.1); Chloride 108 mmol/L (98-107); Estimated GFR 90.12 (mL/min/1.73m2); Glucose 118 mg/dL (74-106); Sodium 145 mmol/L (136-145)
== END 2024-03-30 16:15 | disposition home or self-care (01) ==
LOC: LBN 16:14
PROVIDERS: PCP Family Medicine; Visit Provider Family Medicine
DX: K20.91 Esophagitis, unspecified with bleeding (principal); D50.0 Iron deficiency anemia secondary to blood loss (chronic); E87.1 Hypo-osmolality and hyponatremia; D50.9 Iron deficiency anemia, unspecified
CPT/HCPCS: 80048; 85027

== ENCOUNTER 2024-06-04 13:52 | Outpatient (REF) | payer MEDICARE, SELFPAY ==
[2024-06-04 12:57] LABS: HCT 37.4 % (36.0-46.0); HGB 12.8 g/dL (11.2-15.7); MCH 32.5 pg (27.0-33.0); MCHC 34.2 % (32.0-36.0); MCV 95 fL (80-95); MPV 11.1 fL (8.0-11.0); Platelet Count 191 10^3/uL (130-400); RBC 3.94 10^6/uL (3.93-5.22); RDW-SD 41.9 fL; WBC 7.08 10^3/uL (4.4-10.8)
[2024-06-04 13:06] LABS: ALT 13 U/L (14-59); AST 13 U/L (15-37); Albumin 3.1 g/dL (3.4-5.0); Alkaline Phosphatase 85 U/L (46-116); Anion Gap 3.2 mmol/L (3-11); BUN 12 mg/dL (7-18); Bilirubin, Total 0.21 mg/dL (0.2-1.0); CO2 33.8 mmol/L (21.0-32.0); CREATININE 0.9 mg/dL (0.55-1.02); Calcium 8.9 mg/dL (8.5-10.1); Chloride 103 mmol/L (98-107); Estimated GFR 64.23 (mL/min/1.73m2); Glucose 112 mg/dL (74-106); Potassium 4.7 mmol/L (3.5-5.1); Sodium 140 mmol/L (136-145); Total Protein 6.1 g/dL (6.4-8.2)
== END 2024-06-04 13:53 | disposition home or self-care (01) ==
LOC: LBN 13:52
PROVIDERS: PCP Family Medicine; Visit Provider Family Medicine
DX: Z79.631 Long term (current) use of antimetabolite agent (principal)
CPT/HCPCS: 80053; 85027

== ENCOUNTER 2024-07-18 22:28 | Inpatient (IN) | payer MEDICARE, MEDICAID, SELFPAY ==
[2024-07-18] VITALS (24 sets, daily range): BP systolic 97–194; BP diastolic 72–165; PULSE 101–156; RESP 20–38; TEMP 37.7; O2SAT 81–98
--- NOTE | 2024-07-18 22:15 | RT.EKG_ITS ---
APPROVED REPORT Exam: Resting ECG Reason for Exam: sob Patient Location: E HR:136 bpm ECG Measurements Heart Rate 136 AXIS AR [id number] P [id number] QRSd 123 QRS 16 QT 318 T 209 QTc 479 Conclusion Atrial fibrillation...? atrial activity Left bundle branch block...QRSd>120, broad/notched R ST elevation secondary to IVCD...Multiple VCG criteria I have reviewed and interpreted ECG and agree with software generated interpretation.
--- NOTE | 2024-07-18 22:26 | W.ED.GENAD ---
Discharge Plan Disposition Patient Disposition: Admit to [facility] Condition: Poor Discharge Details Clinical Impression: Atrial fibrillation with RVR, COPD exacerbation, Hypernatremia, UTI (urinary tract infection) Primary Care Provider: Jay Jay Villatoro ED Provider: Kp Mustafa Clanton Meds and New Rx's Prescriptions: No Action acetaminophen 325 mg capsule 650 mg PO Q4H PRN aspirin [Adult Aspirin Regimen] 81 mg tablet,delayed release (DR/EC) 81 mg PO DAILY atorvastatin 40 mg tablet 40 mg PO DAILY ergocalciferol (vitamin D2) [Drisdol] 1,250 mcg (50,000 unit) capsule 50,000 unit PO QWEEK bisacodyl 10 mg suppository 10 mg OK DAILY PRN Enema 19-7 gram/118 mL enema 118 ml OK DAILY PRN folic acid 1 mg tablet 1,000 mcg PO DAILY furosemide 20 mg tablet 20 mg PO DAILY metoprolol succinate 25 mg tablet extended release 24 hr 25 mg PO DAILY magnesium hydroxide [Milk of Magnesia] 400 mg/5 mL suspension 5 ml PO DAILY PRN polyethylene glycol 3350 [ClearLax] 17 gram/dose powder 4.25 g PO ONCE rivaroxaban 20 mg tablet 20 mg PO DAILY Rx Instructions: must administer with evening meal cyanocobalamin (vitamin B-12) 1,000 mcg capsule 1,000 mcg PO DAILY methotrexate sodium 2.5 mg tablet 7.5 mg PO .WEEKLY sertraline 100 mg tablet 100 mg PO DAILY sertraline 50 mg tablet 50 mg PO DAILY docusate sodium [Colace] 100 mg Capsule 100 mg PO DAILY Qty: 30 0RF Slow Release Iron 140 mg (45 mg iron) Tablet Extended Release 142 mg PO DAILY Qty: 30 0RF sucralfate 1 gram Tablet 1 g PO AC & HS Qty: 120 0RF pantoprazole 40 mg tablet,delayed release (DR/EC) 40 mg PO BID Qty: 0 0RF HPI <Kp Mustafa MD - Last Filed: 07/19/24 01:27> General Mode of arrival: EMS. Date/Time Provider Initiated Documentation: 07/18/24 22:31. Limitations to Documentation: other (dementia). Information obtained by: EMS, RN notes reviewed and old records reviewed. HPI Narrative: Patient presents to ED from [facility] with tachycardia and difficulty breathing. Patient with prior history of cardiac disease, cardiomyopathy, A-fib, COPD who EMS reports has been not herself for the last couple of days but began to have increased difficulty breathing, heart rate, diarrhea today. Patient herself is awake and alert. She seems to answer yes to all questions so hard to determine what is truly bothering her. ECF staff called EMS for CP. Patient complaining of pain everywhere for me. Related Data Home Medications ?Medication ?Instructions ?Recorded ?Confirmed acetaminophen 325 mg capsule 650 mg PO Q4H PRN 01/05/24 03/15/24 aspirin 81 mg tablet,delayed 81 mg PO DAILY 01/05/24 03/15/24 release (Adult Aspirin Regimen) atorvastatin 40 mg tablet 40 mg PO DAILY 01/05/24 03/15/24 bisacodyl 10 mg rectal suppository 10 mg OK DAILY PRN 01/05/24 03/15/24 cyanocobalamin (vitamin B-12) 1,000 mcg PO DAILY 01/05/24 03/15/24 1,000 mcg capsule ergocalciferol (vitamin D2) 1,250 50,000 unit PO QWEEK 01/05/24 03/15/24 mcg (50,000 unit) capsule (Drisdol) folic acid 1 mg tablet 1,000 mcg PO DAILY 01/05/24 03/15/24 furosemide 20 mg tablet 20 mg PO DAILY 01/05/24 03/15/24 magnesium hydroxide 400 mg/5 mL 5 ml PO DAILY PRN 01/05/24 03/15/24 oral suspension (Milk of Magnesia) metoprolol succinate 25 mg 25 mg PO DAILY 01/05/24 03/15/24 tablet,extended release 24 hr polyethylene glycol 3350 17 4.25 g PO ONCE 01/05/24 03/15/24 gram/dose oral powder (ClearLax) rivaroxaban 20 mg tablet 20 mg PO DAILY 01/05/24 03/15/24 sodium phosphates 19 gram-7 118 ml OK DAILY PRN 01/05/24 03/15/24 gram/118 mL enema (Enema) methotrexate sodium 2.5 mg tablet 7.5 mg PO .WEEKLY 03/16/24 03/16/24 sertraline 100 mg tablet 100 mg PO DAILY 03/16/24 03/16/24 sertraline 50 mg tablet 50 mg PO DAILY 03/16/24 03/16/24 docusate sodium 100 mg capsule 100 mg PO DAILY #30 caps 03/19/24 (Colace) ferrous sulfate 140 mg (45 mg 142 mg (1.0143 x 140 mg (45 mg 03/19/24 iron) tablet,extended release iron)) PO DAILY #30 tabs (Slow Release Iron) pantoprazole 40 mg tablet,delayed 40 mg PO BID #0 tabs 03/19/24 03/15/24 release sucralfate 1 gram tablet 1 g PO AC & HS #120 tabs 03/19/24 Previous Rx's ?Medication ?Instructions ?Recorded docusate sodium 100 mg capsule 100 mg PO DAILY #30 caps 03/19/24 (Colace) ferrous sulfate 140 mg (45 mg 142 mg (1.0143 x 140 mg (45 mg 03/19/24 iron) tablet,extended release iron)) PO DAILY #30 tabs (Slow Release Iron) pantoprazole 40 mg tablet,delayed 40 mg PO BID #0 tabs 03/19/24 release sucralfate 1 gram tablet 1 g PO AC & HS #120 tabs 03/19/24 Allergies Allergy/AdvReac Type Severity Reaction Status Date / Time ampicillin Allergy Unknown Unknown Verified 01/05/24 10:45 codeine Allergy Unknown Unknown Verified 01/05/24 10:45 hydrocodone Allergy Unknown Unknown Verified 01/05/24 10:45 metoprolol Allergy Unknown Unknown Verified 01/05/24 10:45 morphine Allergy Unknown Unknown Verified 01/05/24 10:45 Penicillins Allergy Unknown Unknown Verified 01/05/24 10:45 shellfish derived Allergy Unknown Unknown Verified 01/05/24 10:45 oyster shell Allergy Unknown Unknown Uncoded 01/05/24 10:45 General PIPPA: 3 Review of Systems <Kp Mustafa MD - Last Filed: 07/19/24 01:27> Unobtainable due to (Dementia) Exam <Kp Mustafa MD - Last Filed: 07/19/24 01:27> Narrative Exam Narrative: Const: Elderly female with some increased work of breathing. VS per triage. HEENT: NC/AT. Normal facial exam. Neck: Supple. Trachea midline. Lungs: Tachypneic with some increased work of breathing. Lungs w diffuse wheeze throughout Cor: Tachy and irregular. Good radial pulses. GI: Soft/ND/NT. Neuro: A+O x 2. Normal speech. Cranial nerves II - XII grossly intact. No gross motor or sensory deficit. Ext: No C/C/E. Procedure <Che Osei MD - Last Filed: 07/18/24 23:09> EJ/Peripheral IV/Phlebotomy Date of Procedure: 07/18/24 Time of Procedure: 23:08 Indication: Nursing/tech could not get IV and Difficult IV access Skin Cleansed in Sterile Fashion: Yes Laterality: Left Insertion Site: Antecubital Size & Type: 18 ga. Number ofAttempts(See previous attempts in note section): 1 Dressing: IV Dressing Placed and Tegaderm Applied Ultrasound: Used/Image Saved (Image not saved) Estimated Blood Loss: minimal Reason for Blood Draw by Provider: RN/lab unable Obtained Bloods via: peripheral vein stick Procedure Tolerated: No Complications and Patient tolerated well Procedure Outcome: Successful Medical Decision Making <Kp Mustafa MD - Last Filed: 07/19/24 01:27> Patient presenting to ED from local [facility] after staff activated EMS for chest pain. Per EMS staff reports that she has been unwell for a couple of days. She has become tachycardic with shortness of breath and diarrhea today. She replies yes to headache, chest pain, difficulty breathing, cough, abdominal pain. She is in rapid A-fib which she does have history of. She has a left bundle branch block on EKG which is old. She has no acute ST changes. She has a low-grade temp here. She has diffuse wheezing throughout. She does have cardiomyopathy and an EF on last echo at 35 to 40% previously but an ECHO here in 03/2024 suggested EF > 50%. IV established and will start fluids, total of a liter at 500/h. Nasal swab, chest x-ray, laboratory studies, straight cath urine, stool for C. difficile all ordered. DuoNeb treatment for the wheezing. Lopressor for her rapid A-fib with parameters. 00:30 - Patient's labs significant for hemoglobin of 8.4, previously 12 in May. Kidney function with a BUN of 29 but a creatinine that is normal at 0.7. She is hyponatremic with a sodium of 150. Liver function is normal. Initial troponin is normal. Her portable chest x-ray shows cardiomegaly with evidence of increased interstitial markings, unclear if related to edema or viral illness. Her nasal swab is negative. BNP was added onto her labs and is elevated to 1982 but there is no baseline. I did type and screen her because of the anemia previous history of GI bleed. Her urinalysis returned positive with nitrates as well as white cells and bacteria, she is given a gram of ceftriaxone. She is still tachypneic after DuoNeb and continues to have wheezing on exam. Will give an albuterol neb as well as steroids given her history of COPD. Her heart rate has improved with a 500 mL bolus and IV Lopressor. Given her normal blood pressure now with possible edema on chest x-ray we will hold off on the other 500 mL bolus. Second troponin and C. difficile are still pending. 01:15 - Patient's second troponin remains flat. C. difficile is negative. Heart rate mostly around 120 or below occasionally jumping to 130. Still wheezing but maintaining her saturations. Records from [facility] noted to be a full code though on her last admission here she was DNR/DNI. Case discussed with hospitalist. Will plan admission to telemetry for further evaluation and management. Definitely keep an eye on hemoglobin. May want to repeat nasal swab given the look of her chest x-ray and GI symptoms of diarrhea. Medical Records Medical records reviewed: Yes I reviewed the patient's medical records. Medical records narrative: Cardiology records from [facility] Imaging Data Radiologic Study: Attestation: I personally reviewed and interpreted this imaging study as follows: Imaging: X-Ray My impression: See [facility] Lab Data Lab results reviewed: Yes I reviewed the patient's lab results. Lab results narrative: See [facility] ECG Data Attestation: I personally reviewed and interpreted this ECG (s) as follows: Prior ECG tracings: available for review Interpretation: See [facility]/EKG Critical Care Time <Kp Mustafa MD - Last Filed: 07/19/24 01:27> Critical Care Time Critical Care Time: Yes Total Critical Care Time: 50 Attestation: Upon my evaluation, this patient had a high probability of imminent or life-threatening deterioration, which required my direct attention, intervention, and personal management. I have personally provided 50 minutes of critical care time exclusive of time spent on separately billable procedures. Time includes monitoring for potential decompensation, ordering of tests and medications, review of laboratory and radiology results, discussion with consultants and documentation . Interventions were performed as documented above in procedures. 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 (Acute) Anemia (Chronic) Edentulous (Chronic) Constipation (Acute) Memory dysfunction (Acute) Gastritis (Acute) Esophagitis determined by endoscopy (Acute) Iron deficiency anemia due to chronic blood loss (Acute) Medical History (Updated 07/19/24 @ 01:26 by Kp Mustafa MD) Endometrial cancer Cardiomyopathy HTN (hypertension) COPD (chronic obstructive pulmonary disease) CAD (coronary artery disease) Atrial fibrillation Rheumatoid arthritis Low left ventricular ejection fraction Pulmonary emboli Surgical History (Updated 07/18/24 @ 22:53 by Kp Mustafa MD) S/P cholecystectomy H/O partial thyroidectomy History of heart artery stent Social History Smoking/Tobacco Use Status: Never Smoking risk assessment performed?: Yes Alcohol Intake: former Drug use: Never Substance use type: does not use Housing: intermediate Do you feel safe at home: Yes Do you feel safe in your relationship?: Yes
[2024-07-18] MEDS: Albuterol/Ipratropium 3 ML UPD VIAL UPD (23:03)
[2024-07-18] MEDS: Metoprolol 5 MG/5 ML VIAL IVP ×2 (23:08→23:54)
[2024-07-18] MEDS: Normal Saline 1,000 ML 500 ML IV (23:11)
[2024-07-18 23:17] LABS: Abs Immature Grans 0.84 10^3/uL (0.0-0.06); Absolute Basophil Count 0.01 10^3/uL (0.0-0.2); Absolute Lymphocyte Count 0.25 10^3/uL (1.2-3.4); Absolute Monocyte Count 0.21 10^3/uL (0.1-0.8); Absolute Neutrophil Count 9.18 10^3/uL (1.2-6.7); Basophils % 0.1 %; HCT 30.9 % (36.0-46.0); HGB 8.4 g/dL (11.2-15.7); Lymphocytes % 2.4 %; MCH 24.1 pg (27.0-33.0); MCHC 27.2 % (32.0-36.0); MCV 89 fL (80-95); MPV 11.2 fL (8.0-11.0); Neutrophils % 87.5 %; Nucleated RBC 0.2 % (0.0-0.3); Platelet Count 384 10^3/uL (130-400); RBC 3.48 10^6/uL (3.93-5.22); RDW 20.4 % (11.7-14.6); RDW-SD 63.7 fL; WBC 10.49 10^3/uL (4.4-10.8)
[2024-07-18 23:26] LABS: Anisocytosis 2+; Hypochromasia 2+
[2024-07-18 23:27] LABS: Diff Comment Agrees w/ Instrument
[2024-07-18 23:31] LABS: COVID-19 PCR Negative (Negative); Influenza A PCR Negative (Negative); Influenza B PCR Negative (Negative); RSV PCR Negative (Negative)
[2024-07-18 23:34] LABS: ALT 22 U/L (14-59); AST 17 U/L (15-37); Albumin 2.7 g/dL (3.4-5.0); Alkaline Phosphatase 85 U/L (46-116); Anion Gap 7.5 mmol/L (3-11); BUN 29 mg/dL (7-18); Bilirubin, Total 0.63 mg/dL (0.2-1.0); CO2 31.5 mmol/L (21.0-32.0); CREATININE 0.7 mg/dL (0.55-1.02); Calcium 8.8 mg/dL (8.5-10.1); Chloride 111 mmol/L (98-107); Glucose 167 mg/dL (74-106); Lipase 29 U/L (<78); Magnesium 1.9 mg/dL (1.8-2.4); Potassium 3.4 mmol/L (3.5-5.1); Sodium 150 mmol/L (136-145); Total Protein 7.1 g/dL (6.4-8.2); Troponin I 18 ng/L (<or=51)
[2024-07-18 23:45] LABS: Source Nasopharynx
[2024-07-18 23:46] LABS: Bilirubin Negative (Negative); Blood Large (Negative); Clarity Cloudy (Clear); Glucose Negative (Negative); Ketones Trace mg/dL (Negative); Leukocyte Esterase Trace (Negative); Nitrite Positive (Negative); pH 5.5 (5-8)
--- NOTE | 2024-07-18 23:47 | DI.RAD_ITS ---
Exam(s) XR PORTABLE CHEST AP EXAM: XR PORTABLE CHEST AP CLINICAL HISTORY: SOB TECHNIQUE: 2D digital imaging was performed. COMPARISON: CR,XR XR ABDOMEN FLAT PLATE from 03/18/2024 FINDINGS: Exam is limited by multiple overlying monitoring leads. LUNGS: Will prominent pulmonary vasculature. Increased interstitial markings consistent with pulmonar y edema. Small left pleural effusion. HEART: Enlarged. Coronary artery stent. AORTA: Tortuous. BONES: Unremarkable for age. Soft tissues: Stomach somewhat distended. IMPRESSION: CHF with small left pleural effusion. Cardiomegaly DATA REPOSITORY: RADIATION DOSE DELIVERED:
--- NOTE | 2024-07-18 23:57 | DI.VRAD_ITS ---
PROCEDURE INFORMATION: Exam: XR Chest Exam date and time: 07/18/2024 11:41 PM Age: 84 years old Clinical indication: Pain; Shortness of breath; Chest pressure; SOB TECHNIQUE: Imaging protocol: Radiologic exam of the chest. Views: 1 view. COMPARISON: CR XR ABDOMEN FLAT PLATE 03/18/2024 12:22 PM FINDINGS: Lungs: There is hazy increased density in the left lower lung zone. There is hazy indistinctness of the pulmonary vascular margins suggesting interstitial pulmonary edema. Clinical correlation is recommended. Pleural spaces: There appears to be a small left pleural effusion. No right-sided pleural effusion or pneumothorax is demonstrated. Heart/Mediastinum: The cardiac silhouette is grossly enlarged. Cardiac monitoring leads overlie the exam. Bones/joints: There are osteophytes along the thoracic spinal margin. IMPRESSION: 1. Small left pleural effusion. 2. Suspected interstitial pulmonary edema, probably from congestive heart failure given apparent cardiac enlargement. Clinical correlation is recommended. Dictated and Authenticated by: Hasmukh Valle MD. Orderin Ramsey Goodrich MD
[2024-07-19] VITALS (39 sets, daily range): BP systolic 101–156; BP diastolic 55–85; PULSE 97–140; RESP 3–34; TEMP 36–38; O2SAT 89–100
[2024-07-19 00:01] LABS: Lab Add On Test DONE
[2024-07-19 00:06] LABS: Bacteria Many HPF (Negative); C & S Indicated? Yes; Casts Negative LPF (Negative); Crystals Negative HPF (Negative); Epithelial Cells Few HPF (Negative); Mucus Moderate (Negative); WBC 20-50 HPF (0-5)
[2024-07-19] MEDS: cefTRIAXone 1 GM/50 ML BAG IVPB ×2 (00:12→23:19)
[2024-07-19 00:20] LABS: NT-proBNP 1982 pg/mL (<300)
[2024-07-19] MEDS: Metoprolol 5 MG/5 ML VIAL IVP ×2 (00:27→23:18)
[2024-07-19 00:31] LABS: Troponin I 17 ng/L (<or=51)
[2024-07-19 00:31] LABS: C Diff PCR Negative (Negative)
[2024-07-19] MEDS: methylPREDNISolone SUCC 125 MG VIAL IVP (00:45)
[2024-07-19] MEDS: Albuterol 2.5 MG/3 ML INH SOLN VIAL UPD (00:45)
--- NOTE | 2024-07-19 01:23 | HPE_ITS ---
Date of service: 07/19/24 Time of Service: 01:29 Assessment and Plan Assessment and plan (1) Sepsis: Start date: 07/19/24 Status: Acute Assessment and plan: This is an 84-year-old lady who resides at the local longterm presenting with respiratory distress and sepsis syndrome. She is not hypotensive. He is a DNR/DNI and her daughter wants her to be treated aggressively for reversible problems but not intubated or receive CPR and preferred not to have ICU level of care. Did have gentle IV hydration in the ED with presentation of possible dehydration with hypernatremia but also she appeared to be in CHF. Possible source of infection with her sepsis presentation is UTI which is being treated after cultures possible respiratory infection though it appears to be more CHF. Her echocardiogram needs to be updated. She does have COPD exacerbation as well. Placed on IV Rocephin with Zithromax added and will receive aggressive nebulizer treatments with IV Solu-Medrol. Viral panel for screening will be repeated with patient appearing to have possible viral infection with her fever and presentation especially with diarrhea. There has been increased infections with influenza and COVID recently. Her stool was negative for C. difficile. If needed she will be placed on BiPAP. For now she will be diuresed with IV Lasix but because of possible dehydration as well echocardiogram will be updated and we may need to get more aggressive IV fluid resuscitation if she is not responding. She is a DNR/DNI and this will be respected. (2) UTI (urinary tract infection): Start date: 07/19/24 Status: Acute Assessment and plan: IV Rocephin and follow-up culture. Mcmillan catheter if needed but for now patient is doing well with pure wick. (3) COPD exacerbation: Start date: 07/19/24 Status: Acute Assessment and plan: Aggressive nebulizer treatments with IV Solu-Medrol. Zithromax was added to the regimen to cover lungs. (4) Acute hypernatremia: Start date: 07/19/24 Status: Acute Assessment and plan: Monitor with IV hydration and oral hydration as tolerated. (5) Atrial fibrillation with RVR: Start date: 07/19/24 Status: Acute Assessment and plan: Continue metoprolol split dosing as tolerated. Treat CHF and possible dehydration as tolerated. Cardiac monitoring. (6) Iron deficiency anemia due to chronic blood loss: Status: Chronic Assessment and plan: Patient did have type and screen and will be transfused if needed. She may need additional Lasix if transfused. This may help for dehydration. Hold aspirin and Xarelto for now. (7) Vascular dementia: Status: Chronic Assessment and plan: Progressive with patient DNR/DNI. (8) Rheumatoid arthritis: Assessment and plan: On outpatient therapy which is immunocompromising. Follow-up blood cultures. History of Present Illness History of Present Illness Chief Complaint: Difficulty breathing with hypoxia and tachycardia. Narrative: This is an 84-year-old female patient who resides at the [facility] who has been there for vascular dementia but also has a history of atrial fibrillation with usually controlled rate and on anticoagulation though she does have a history of GI bleed and iron deficiency anemia which is slightly worse now, COPD, CAD status post cardiac stenting on aspirin, RA on immunosuppressants and Lasix chronically for previous cardiomyopathy though last left-ventricular ejection fraction less than 55% in March 2024. She was sent to the ED because of difficulty breathing worsening over the last 48 hours on oxygen therapy from the longterm though she is not on oxygen chronically. She also had fever and rapid heart rate. She is in atrial fibrillation with rapid ventricular response and this did respond to metoprolol as well as gentle IV fluids with the patient having hypernatremia indicating possible dehydration. She appeared to be more anemic than previous CBC but there is no history of recently having blood in the stool though she has had GI bleed with iron deficiency anemia by history as stated. She is on aspirin daily with her CAD and continues on Xarelto for anticoagulation with atrial fibrillation with both of these to be held. She did have diarrhea which is negative for C. difficile but was not tested for blood and her viral screening for COVID, influenza and RSV were negative with initial testing. Chest x-ray did appear to be a viral pneumonitis according to the ED physician but was read as interstitial edema with small left pleural effusion by radiology. Patient also had a positive urinalysis for possible UTI. She does meet sepsis criteria but was not hypotensive and source most likely would be at least urine possible lung. She was initiated on IV Rocephin after urine culture and blood cultures. She was more comfortable according to ED physician and will be admitted for continued gentle IV hydration as needed for blood pressure but more aggressive diuresis initially because of her x-ray findings per radiology. Continue treatment of possible underlying source of infection with urinalysis most likely and respiratory secondary. No antivirals will be initiated but retesting of the viral screen will be done in the morning. Initial review of her chart reveals that she is a DNR/DNI but at the longterm she has a COLST form which patient signed in September, stating she is a full code. I did call the daughter, Saira Leos who confirmed that the patient desired a DNR/DNI status and that she does have mild dementia with the daughter being her spokesperson. She will remain DNR/DNI. Review of Systems Narrative: 13 point review of systems otherwise unrevealing or unobtainable with patient's mild dementia. PFSH All Active Problems Vascular dementia (Chronic) Acute hypernatremia (Acute) Sepsis (Acute) UTI (urinary tract infection) (Acute) Hypernatremia (Acute) COPD exacerbation (Acute) Atrial fibrillation with RVR (Acute) Immunosuppression (Acute) Hx of alf use of blood thinners (Acute) Anemia (Chronic) Edentulous (Chronic) Constipation (Acute) Memory dysfunction (Acute) Gastritis (Acute) Esophagitis determined by endoscopy (Acute) Iron deficiency anemia due to chronic blood loss (Chronic) Medical History Endometrial cancer Cardiomyopathy HTN (hypertension) COPD (chronic obstructive pulmonary disease) CAD (coronary artery disease) Atrial fibrillation Rheumatoid arthritis Low left ventricular ejection fraction Pulmonary emboli Surgical History S/P cholecystectomy H/O partial thyroidectomy History of heart artery stent Social History Smoking/Tobacco Use Status: Never Smoking risk assessment performed?: Yes Alcohol Intake: former Drug use: Never Substance use type: does not use Housing: longterm Do you feel safe at home: Yes Do you feel safe in your relationship?: Yes Meds Allergies and Home Medications Allergies Allergy/AdvReac Type Severity Reaction Status Date / Time ampicillin Allergy Unknown Unknown Verified 01/05/24 10:45 codeine Allergy Unknown Unknown Verified 01/05/24 10:45 hydrocodone Allergy Unknown Unknown Verified 01/05/24 10:45 metoprolol Allergy Unknown Unknown Verified 01/05/24 10:45 morphine Allergy Unknown Unknown Verified 01/05/24 10:45 Penicillins Allergy Unknown Unknown Verified 01/05/24 10:45 shellfish derived Allergy Unknown Unknown Verified 01/05/24 10:45 oyster shell Allergy Unknown Unknown Uncoded 01/05/24 10:45 Home Medications ?Medication ?Instructions ?Recorded ?Confirmed ?Type acetaminophen 325 mg capsule 650 mg PO Q4H PRN 01/05/24 07/19/24 History aspirin 81 mg tablet,delayed 81 mg PO DAILY 01/05/24 07/19/24 History release (Adult Aspirin Regimen) atorvastatin 40 mg tablet 40 mg PO DAILY 01/05/24 07/19/24 History bisacodyl 10 mg rectal suppository 10 mg SD DAILY PRN 01/05/24 07/19/24 History cyanocobalamin (vitamin B-12) 1,000 mcg PO DAILY 01/05/24 07/19/24 History 1,000 mcg capsule ergocalciferol (vitamin D2) 1,250 50,000 unit PO QWEEK 01/05/24 07/19/24 History mcg (50,000 unit) capsule (Drisdol) folic acid 1 mg tablet 1,000 mcg PO DAILY 01/05/24 07/19/24 History furosemide 20 mg tablet 20 mg PO DAILY 01/05/24 07/19/24 History magnesium hydroxide 400 mg/5 mL 5 ml PO DAILY PRN 01/05/24 07/19/24 History oral suspension (Milk of Magnesia) metoprolol succinate 25 mg 25 mg PO DAILY 01/05/24 07/19/24 History tablet,extended release 24 hr polyethylene glycol 3350 17 4.25 g PO ONCE 01/05/24 07/19/24 History gram/dose oral powder (ClearLax) rivaroxaban 20 mg tablet 20 mg PO DAILY 01/05/24 07/19/24 History sodium phosphates 19 gram-7 118 ml SD DAILY PRN 01/05/24 07/19/24 History gram/118 mL enema (Enema) methotrexate sodium 2.5 mg tablet 7.5 mg PO .WEEKLY 03/16/24 07/19/24 History sertraline 100 mg tablet 100 mg PO DAILY 03/16/24 07/19/24 History sertraline 50 mg tablet 50 mg PO DAILY 03/16/24 07/19/24 History docusate sodium 100 mg capsule 100 mg PO DAILY #30 caps 03/19/24 07/19/24 Rx (Colace) ferrous sulfate 140 mg (45 mg 142 mg (1.0143 x 140 mg (45 mg 03/19/24 07/19/24 Rx iron) tablet,extended release iron)) PO DAILY #30 tabs (Slow Release Iron) pantoprazole 40 mg tablet,delayed 40 mg PO BID #0 tabs 03/19/24 03/15/24 Rx release sucralfate 1 gram tablet 1 g PO AC & HS #120 tabs 03/19/24 Rx esomeprazole magnesium 20 mg 20 mg PO DAILY 07/19/24 07/19/24 History granules delayed release for susp midodrine 2.5 mg tablet 2.5 mg PO BID 07/19/24 07/19/24 History nitroglycerin 0.4 mg sublingual 0.4 mg sublingual Q5M PRN 07/19/24 07/19/24 History tablet Exam Narrative Exam Narrative: General: Patient appears appropriate for age, pale and in moderate distress with tachypnea lab of the head at a 45 degree angle and able to speak through the nebulizer mask. He is alert and oriented to person and place. HEENT: Normocephalic, eyes with pupils equal and react to light symmetrically, extraocular movement intact and sclera anicteric. Oropharynx with dry mucosa. Neck: Supple without JVD. Back: Kyphotic without CVA tenderness. Lungs: Bronchovesicular breath sound diffusely with decreased aeration on the left compared to right, slightly increased expiratory phase with expiratory wheeze but mostly diffuse inspiratory crackles bilaterally without focalizing. As stated, fair aeration on the right but decreased in the left. Breast: Exam deferred. Heart: Irregular rhythm with tachycardic rate and no appreciable murmur or gallop. Abdomen: Obese contour, soft and nontender to palpation no palpable hepatosplenomegaly. No guarding or rebound. Bowel sounds positive all quadrants. Genitalia/rectal: Exam deferred. Extremities: Nonpitting edema bilaterally, no cyanosis or clubbing. Fair cap refill. Skin: Pale, warm and moist. Neuro: Cranial nerves II through XII gross intact, no focalized motor deficits. No tremor. Psych: Flattened affect with normal mood. No abnormal thought processes. Speech monotonous and slow. Remote memory grossly intact with minimal conversation and recent memory less intact. Results Imaging Imaging Studies: Exam: XR Chest Exam date and time: 07/18/2024 11:41 PM Age: 84 years old Clinical indication: Pain; Shortness of breath; Chest pressure; SOB TECHNIQUE: Imaging protocol: Radiologic exam of the chest. Views: 1 view. COMPARISON: CR XR ABDOMEN FLAT PLATE 03/18/2024 12:22 PM FINDINGS: Lungs: There is hazy increased density in the left lower lung zone. There is hazy indistinctness of the pulmonary vascular margins suggesting interstitial pulmonary edema. Clinical correlation is recommended. Pleural spaces: There appears to be a small left pleural effusion. No right-sided pleural effusion or pneumothorax is demonstrated. Heart/Mediastinum: The cardiac silhouette is grossly enlarged. Cardiac monitoring leads overlie the exam. Bones/joints: There are osteophytes along the thoracic spinal margin. IMPRESSION: 1. Small left pleural effusion. 2. Suspected interstitial pulmonary edema, probably from congestive heart failure given apparent cardiac enlargement. Clinical correlation is recommended. EXAM: Comprehensive 2D, Doppler, and color-flow Echocardiogram Date: 03/15/24 Indications: Afib, GI bleed Conclusion Normal left ventricular wall thickness and chamber size. Ejection fraction is 55%. Wall motion is normal Normal right ventricular size and function Both atria are normal in size There is no structural or hemodynamically significant valvular disease Labs 07/18/24 23:06 07/18/24 23:06 Labs: Laboratory Results - last 24 hr 07/18/24 07/18/24 07/18/24 22:28 23:06 23:30 WBC 10.49 RBC 3.48 L Hgb 8.4 L Hct 30.9 L MCV 89 MCH 24.1 L MCHC 27.2 L RDW 20.4 H Plt Count 384 MPV 11.2 H Immature Gran % 8.0 Neutrophils % 87.5 Lymphocytes % 2.4 Monocytes % 2.0 Eosinophils % 0.0 Basophils % 0.1 Nucleated RBC % 0.2 Absolute Neutrophils 9.18 H Absolute Lymphocytes 0.25 L Absolute Monocytes 0.21 Absolute Eosinophils 0.00 Absolute Basophils 0.01 RBC Morphology See Below Hypochromasia 2+ Anisocytosis 2+ Sodium 150 H Potassium 3.4 L Chloride 111 H Carbon Dioxide 31.5 Anion Gap 7.5 BUN 29 H Creatinine 0.7 Est GFR (CKD-EPI 2020) 86.30 Glucose 167 H Calcium 8.8 Magnesium 1.9 Total Bilirubin 0.63 AST 17 ALT 22 Alkaline Phosphatase 85 Troponin I 18 NT-Pro-B Natriuret Pep Total Protein 7.1 Albumin 2.7 L Lipase 29 Urine Color Yellow Urine Clarity Cloudy Urine pH 5.5 Ur Specific [place] 1.020 Urine Protein 100 H Urine Ketones Trace H Urine Blood Large H Urine Nitrite Positive H Urine Bilirubin Negative Urine Urobilinogen 2.0 H Ur Leukocyte Esterase Trace H Urine RBC 5-10 H Urine WBC 20-50 H Ur Epithelial Cells Few Urine Crystals Negative Urine Bacteria Many Urine Casts Negative Urine Mucus Moderate Ur Culture Indicated? Yes Urine Glucose Negative Stl C.difficile Tox PCR Negative COVID-19 Source Nasopharynx SARS-CoV-2 (PCR) Negative Influenza Type A (PCR) Negative Influenza Type B (PCR) Negative RSV (PCR) Negative Add-On Test Request DONE ABO/Rh Antibody Screen 07/18/24 07/19/24 07/19/24 23:50 00:06 23:06 WBC RBC Hgb Hct MCV MCH MCHC RDW Plt Count MPV Immature Gran % Neutrophils % Lymphocytes % Monocytes % Eosinophils % Basophils % Nucleated RBC % Absolute Neutrophils Absolute Lymphocytes Absolute Monocytes Absolute Eosinophils Absolute Basophils RBC Morphology Hypochromasia Anisocytosis Sodium Potassium Chloride Carbon Dioxide Anion Gap BUN Creatinine Est GFR (CKD-EPI 2020) Glucose Calcium Magnesium Total Bilirubin AST ALT Alkaline Phosphatase Troponin I 17 NT-Pro-B Natriuret Pep 1982 H Total Protein Albumin Lipase Urine Color Urine Clarity Urine pH Ur Specific [place] Urine Protein Urine Ketones Urine Blood Urine Nitrite Urine Bilirubin Urine Urobilinogen Ur Leukocyte Esterase Urine RBC Urine WBC Ur Epithelial Cells Urine Crystals Urine Bacteria Urine Casts Urine Mucus Ur Culture Indicated? Urine Glucose Stl C.difficile Tox PCR COVID-19 Source SARS-CoV-2 (PCR) Influenza Type A (PCR) Influenza Type B (PCR) RSV (PCR) Add-On Test Request ABO/Rh O Positive Antibody Screen NEGATIVE Last Vital Signs Temp 37.7 C H 07/18/24 22:29 Pulse 118 H 07/19/24 01:06 Resp 30 H 07/19/24 01:06 BP 122/73 07/19/24 01:06 Pulse Ox 98 07/19/24 01:06 Time Spent Time spent with Patient: >75 minutes Time was spent: preparing to see the patient(eg.review tests), obtaining and/or reviewing separately otained hiistory, ordering medications,tests, procedures, indepentently interpreting results, counseling the patient and other (Reviewed case with daughter and reaffirmed CODE STATUS DNR/DNI)
[2024-07-19 02:56] LABS: Troponin I 22 ng/L (<or=51)
--- NOTE | 2024-07-19 03:43 | W.PC.ACHO ---
Registration Status: Primary Language: Preferred Language: ED Information & Data Chief Complaint SOB 07/18/24 22:29 Chief Complaint SOB 07/18/24 22:24 Triage Note pt arrives via ambulance [facility]18/24 [facility] staff reports pt has been tachy, c/o difficulty breathing, dizziness, diarrhea since today. Facility reports decreased mental capacity x2 days. Pt given 81mg aspirin by [facility]. Pt has cardiac history per [facility]. c/o pain everywhere Medical / Surgical History (Last Reviewed 07/19/24 @ 01:31 by Nakul Shay) Endometrial cancer Cardiomyopathy HTN (hypertension) COPD (chronic obstructive pulmonary disease) CAD (coronary artery disease) Atrial fibrillation Rheumatoid arthritis Low left ventricular ejection fraction Pulmonary emboli (Last Reviewed 07/19/24 @ 01:31 by Nakul Shay) S/P cholecystectomy H/O partial thyroidectomy History of heart artery stent Most Recent Vital Signs Temperature 37.7 C H 07/18/24 22:29 Temperature Source Oral 07/18/24 22:29 Pulse 121 H 07/19/24 01:31 Pulse 125 H 07/19/24 01:31 Respiratory Rate 34 H 07/19/24 01:31 Respiratory Effort Short of Breath, Accessory Muscle Use, Incrsd Work of Breathing 07/19/24 01:06 Respiratory Depth Retractive 07/19/24 01:06 Respiratory Pattern Tachypnea 07/18/24 23:39 Blood Pressure 138/68 07/19/24 01:30 Blood Pressure Mean 89 07/19/24 01:30 Blood Pressure Position Supine 07/19/24 01:06 Pulse Oximetry 92 07/19/24 01:31 Oxygen Delivery Method Nasal Cannula 07/19/24 01:06 Oxygen Flow Rate 6 07/19/24 01:06 Pain Level 5 07/18/24 22:29 Allergies ampicillin Allergy (Unknown, Verified 01/05/24 10:45) Unknown codeine Allergy (Unknown, Verified 01/05/24 10:45) Unknown hydrocodone Allergy (Unknown, Verified 01/05/24 10:45) Unknown metoprolol Allergy (Unknown, Verified 01/05/24 10:45) Unknown morphine Allergy (Unknown, Verified 01/05/24 10:45) Unknown Penicillins Allergy (Unknown, Verified 01/05/24 10:45) Unknown shellfish derived Allergy (Unknown, Verified 01/05/24 10:45) Unknown oyster shell Allergy (Unknown, Uncoded 01/05/24 10:45) Unknown Precautions Isolation PUI 07/18/24 22:29 IV IV Catheter Type [Left Peripheral IV Antecubital] IV Catheter Gauge [Left 18 Antecubital] Diagnostics 07/19/24 07/19/24 07/19/24 Range/Units 23:06 02:15 00:06 WBC (4.4-10.8) 10^3/uL RBC (3.93-5.22) 10^6/uL Hgb (11.2-15.7) g/dL Hct (36.0-46.0) % MCV (80-95) fL MCH (27.0-33.0) pg MCHC (32.0-36.0) % RDW (11.7-14.6) % Plt Count (130-400) 10^3/uL MPV (8.0-11.0) fL Immature Gran % % Neutrophils % % Lymphocytes % % Monocytes % % Eosinophils % % Basophils % % Nucleated RBC % (0.0-0.3) % Absolute Neutrophils (1.2-6.7) 10^3/uL Absolute Lymphocytes (1.2-3.4) 10^3/uL Absolute Monocytes (0.1-0.8) 10^3/uL Absolute Eosinophils (0.0-0.7) 10^3/uL Absolute Basophils (0.0-0.2) 10^3/uL RBC Morphology Hypochromasia Anisocytosis Sodium (136-145) mmol/L Potassium (3.5-5.1) mmol/L Chloride (98-107) mmol/L Carbon Dioxide (21.0-32.0) mmol/L Anion Gap (3-11) mmol/L BUN (7-18) mg/dL Creatinine (0.55-1.02) mg/dL Est GFR (CKD-EPI 2020) (mL/min/1.73m2) Glucose (74-106) mg/dL Calcium (8.5-10.1) mg/dL Magnesium (1.8-2.4) mg/dL Total Bilirubin (0.2-1.0) mg/dL AST (15-37) U/L ALT (14-59) U/L Alkaline Phosphatase (46-116) U/L Troponin I 22 17 (<or=51) ng/L NT-Pro-B Natriuret Pep 1982 H (<300) pg/mL Total Protein (6.4-8.2) g/dL Albumin (3.4-5.0) g/dL Lipase (<78) U/L Urine Color (Yellow) Urine Clarity (Clear) Urine pH (5-8) Ur Specific [place] (1.005-1.025) Urine Protein (Neg-Trace) mg/dL Urine Ketones (Negative) mg/dL Urine Blood (Negative) Urine Nitrite (Negative) Urine Bilirubin (Negative) Urine Urobilinogen (Up to 0.2) mg/dL Ur Leukocyte Esterase (Negative) Urine RBC (0-2) HPF Urine WBC (0-5) HPF Ur Epithelial Cells (Negative) HPF Urine Crystals (Negative) HPF Urine Bacteria (Negative) HPF Urine Casts (Negative) LPF Urine Mucus (Negative) Ur Culture Indicated? Urine Glucose (Negative) mg/dL Stl C.difficile Tox PCR (Negative) COVID-19 Source SARS-CoV-2 (PCR) (Negative) Influenza Type A (PCR) (Negative) Influenza Type B (PCR) (Negative) RSV (PCR) (Negative) MRSA (TEM-PCR) Pending Add-On Test Request ABO/Rh Antibody Screen 07/18/24 07/18/24 07/18/24 Range/Units 23:50 23:30 23:06 WBC 10.49 (4.4-10.8) 10^3/uL RBC 3.48 L (3.93-5.22) 10^6/uL Hgb 8.4 L (11.2-15.7) g/dL Hct 30.9 L (36.0-46.0) % MCV 89 (80-95) fL MCH 24.1 L (27.0-33.0) pg MCHC 27.2 L (32.0-36.0) % RDW 20.4 H (11.7-14.6) % Plt Count 384 (130-400) 10^3/uL MPV 11.2 H (8.0-11.0) fL Immature Gran % 8.0 % Neutrophils % 87.5 % Lymphocytes % 2.4 % Monocytes % 2.0 % Eosinophils % 0.0 % Basophils % 0.1 % Nucleated RBC % 0.2 (0.0-0.3) % Absolute Neutrophils 9.18 H (1.2-6.7) 10^3/uL Absolute Lymphocytes 0.25 L (1.2-3.4) 10^3/uL Absolute Monocytes 0.21 (0.1-0.8) 10^3/uL Absolute Eosinophils 0.00 (0.0-0.7) 10^3/uL Absolute Basophils 0.01 (0.0-0.2) 10^3/uL RBC Morphology See Below Hypochromasia 2+ Anisocytosis 2+ Sodium 150 H (136-145) mmol/L Potassium 3.4 L (3.5-5.1) mmol/L Chloride 111 H (98-107) mmol/L Carbon Dioxide 31.5 (21.0-32.0) mmol/L Anion Gap 7.5 (3-11) mmol/L BUN 29 H (7-18) mg/dL Creatinine 0.7 (0.55-1.02) mg/dL Est GFR (CKD-EPI 2020) 86.30 (mL/min/1.73m2) Glucose 167 H (74-106) mg/dL Calcium 8.8 (8.5-10.1) mg/dL Magnesium 1.9 (1.8-2.4) mg/dL Total Bilirubin 0.63 (0.2-1.0) mg/dL AST 17 (15-37) U/L ALT 22 (14-59) U/L Alkaline Phosphatase 85 (46-116) U/L Troponin I 18 (<or=51) ng/L NT-Pro-B Natriuret Pep (<300) pg/mL Total Protein 7.1 (6.4-8.2) g/dL Albumin 2.7 L (3.4-5.0) g/dL Lipase 29 (<78) U/L Urine Color Yellow (Yellow) Urine Clarity Cloudy (Clear) Urine pH 5.5 (5-8) Ur Specific [place] 1.020 (1.005-1.025) Urine Protein 100 H (Neg-Trace) mg/dL Urine Ketones Trace H (Negative) mg/dL Urine Blood Large H (Negative) Urine Nitrite Positive H (Negative) Urine Bilirubin Negative (Negative) Urine Urobilinogen 2.0 H (Up to 0.2) mg/dL Ur Leukocyte Esterase Trace H (Negative) Urine RBC 5-10 H (0-2) HPF Urine WBC 20-50 H (0-5) HPF Ur Epithelial Cells Few (Negative) HPF Urine Crystals Negative (Negative) HPF Urine Bacteria Many (Negative) HPF Urine Casts Negative (Negative) LPF Urine Mucus Moderate (Negative) Ur Culture Indicated? Yes Urine Glucose Negative (Negative) mg/dL Stl C.difficile Tox PCR Negative (Negative) COVID-19 Source SARS-CoV-2 (PCR) (Negative) Influenza Type A (PCR) (Negative) Influenza Type B (PCR) (Negative) RSV (PCR) (Negative) MRSA (TEM-PCR) Add-On Test Request DONE ABO/Rh O Positive Antibody Screen NEGATIVE 07/18/24 Range/Units 22:28 WBC (4.4-10.8) 10^3/uL RBC (3.93-5.22) 10^6/uL Hgb (11.2-15.7) g/dL Hct (36.0-46.0) % MCV (80-95) fL MCH (27.0-33.0) pg MCHC (32.0-36.0) % RDW (11.7-14.6) % Plt Count (130-400) 10^3/uL MPV (8.0-11.0) fL Immature Gran % % Neutrophils % % Lymphocytes % % Monocytes % % Eosinophils % % Basophils % % Nucleated RBC % (0.0-0.3) % Absolute Neutrophils (1.2-6.7) 10^3/uL Absolute Lymphocytes (1.2-3.4) 10^3/uL Absolute Monocytes (0.1-0.8) 10^3/uL Absolute Eosinophils (0.0-0.7) 10^3/uL Absolute Basophils (0.0-0.2) 10^3/uL RBC Morphology Hypochromasia Anisocytosis Sodium (136-145) mmol/L Potassium (3.5-5.1) mmol/L Chloride (98-107) mmol/L Carbon Dioxide (21.0-32.0) mmol/L Anion Gap (3-11) mmol/L BUN (7-18) mg/dL Creatinine (0.55-1.02) mg/dL Est GFR (CKD-EPI 2020) (mL/min/1.73m2) Glucose (74-106) mg/dL Calcium (8.5-10.1) mg/dL Magnesium (1.8-2.4) mg/dL Total Bilirubin (0.2-1.0) mg/dL AST (15-37) U/L ALT (14-59) U/L Alkaline Phosphatase (46-116) U/L Troponin I (<or=51) ng/L NT-Pro-B Natriuret Pep (<300) pg/mL Total Protein (6.4-8.2) g/dL Albumin (3.4-5.0) g/dL Lipase (<78) U/L Urine Color (Yellow) Urine Clarity (Clear) Urine pH (5-8) Ur Specific [place] (1.005-1.025) Urine Protein (Neg-Trace) mg/dL Urine Ketones (Negative) mg/dL Urine Blood (Negative) Urine Nitrite (Negative) Urine Bilirubin (Negative) Urine Urobilinogen (Up to 0.2) mg/dL Ur Leukocyte Esterase (Negative) Urine RBC (0-2) HPF Urine WBC (0-5) HPF Ur Epithelial Cells (Negative) HPF Urine Crystals (Negative) HPF Urine Bacteria (Negative) HPF Urine Casts (Negative) LPF Urine Mucus (Negative) Ur Culture Indicated? Urine Glucose (Negative) mg/dL Stl C.difficile Tox PCR (Negative) COVID-19 Source Nasopharynx SARS-CoV-2 (PCR) Negative (Negative) Influenza Type A (PCR) Negative (Negative) Influenza Type B (PCR) Negative (Negative) RSV (PCR) Negative (Negative) MRSA (TEM-PCR) Add-On Test Request ABO/Rh Antibody Screen 07/18/24 23:30 Urine Culture - Pending Urine - Reflex from Ua Intake and Output - 24 Hour Total 07/18/24 22:22 thru 07/19/24 00:40 Intake Total 550 Output Total 5 Balance 545 Weight 68.492 kg Intake: IV 550 Output: Urine 5 Other: Urine Color Yellow Urine Appearance Clear Falls Risk Assessment History of Falls Previous History 07/18/24 22:29 Contributing Factors Impairments 07/18/24 22:29 Ambulatory Aids Uses ambulatory device + 07/18/24 22:29 Tubes/Lines With any additional score 07/18/24 22:29 Gait Evaluation W/any additional score 07/18/24 22:29 Fall Total Score 88 07/18/24 22:29 Level of Risk Maximum Risk 07/18/24 22:29 Problems (Last Reviewed 07/19/24 @ 01:31 by Nakul Shay) Vascular dementia (Chronic) Acute hypernatremia (Acute) Sepsis (Acute) UTI (urinary tract infection) (Acute) Hypernatremia (Acute) COPD exacerbation (Acute) Atrial fibrillation with RVR (Acute) Iron deficiency anemia due to chronic blood loss (Chronic) v v v v v v v v v Sending and/or Receiving Nurses: Please use comment section below to note any information pertinent to the patient hand-off not included above. Information / Comments: Report received from: Prabhakar Robin from rehab across the street. arrived w/ c/o CP, decrease in mental capacity, tachycardia, and diarrhrea. stool tested for c-diff in the ER, negative. pt audibly wheezy and remains tachycardic even after 3 doses of metoprolol. Afib w/ RVR on the tele monitor in the ER. has received solumedrol and nebs in the ER. Pt is a poor historian at baseline.
[2024-07-19 03:48] LABS: MRSA PCR Negative (Negative)
[2024-07-19] MEDS: Metoprolol 12.5 MG TAB PO ×4 (04:15→20:46)
[2024-07-19] MEDS: methylPREDNISolone SUCC 125 MG VIAL 60 MG IVP ×2 (04:15→11:29)
[2024-07-19] MEDS: POTASSIUM CHLORIDE/D5-0.45NACL 1,000 ML 25 MEQ IV (04:34)
[2024-07-19] MEDS: Albuterol/Ipratropium 3 ML UPD VIAL UPD ×4 (04:36→21:34)
[2024-07-19 04:40] LABS: BE (Venous) 2 mmol/L (-2-3); HCO3 (Venous) 26 mmol/L (23-28); O2 Sat (Venous) 85 %; TCO2 (Venous) 25 mmol/L (24-29); pCO2 (Venous) 41 mmHg (41-51); pH (Venous) 7.42 (7.31-7.41); pO2 (Venous) 53 mmHg
[2024-07-19 04:43] LABS: Lactate 2.2 mmol/L (<or=2.0)
[2024-07-19 05:28] LABS: Procalcitonin 0.19 ng/mL
[2024-07-19 05:33] LABS: HCT 29.3 % (36.0-46.0); MCH 24.1 pg (27.0-33.0); MCV 89 fL (80-95); MPV 11.9 fL (8.0-11.0); Platelet Count 326 10^3/uL (130-400); RBC 3.28 10^6/uL (3.93-5.22); RDW-SD 63.9 fL; WBC 12.03 10^3/uL (4.4-10.8)
[2024-07-19 05:49] LABS: ALT 22 U/L (14-59); AST 19 U/L (15-37); Albumin 2.6 g/dL (3.4-5.0); Alkaline Phosphatase 81 U/L (46-116); Anion Gap 8.5 mmol/L (3-11); BUN 28 mg/dL (7-18); Bilirubin, Total 0.55 mg/dL (0.2-1.0); CO2 29.5 mmol/L (21.0-32.0); CREATININE 0.7 mg/dL (0.55-1.02); Calcium 8.6 mg/dL (8.5-10.1); Chloride 113 mmol/L (98-107); Glucose 175 mg/dL (74-106); Magnesium 1.8 mg/dL (1.8-2.4); Potassium 3.3 mmol/L (3.5-5.1); Sodium 151 mmol/L (136-145); Total Protein 6.9 g/dL (6.4-8.2)
[2024-07-19] MEDS: POTASSIUM CHLORIDE 20 MEQ/100 ML BAG 50 MEQ IV_INF (05:56)
[2024-07-19] MEDS: Furosemide 40 MG/4 ML VIAL IVP (05:56)
[2024-07-19 06:06] LABS: HGB 7.9 g/dL (11.2-15.7)
[2024-07-19 06:07] LABS: RDW 20.4 % (11.7-14.6)
[2024-07-19 06:27] LABS: TSH (W/Ref FT4) 0.97 uIU/mL (0.36-3.74)
[2024-07-19] MEDS: Cyanocobalamin 500 MCG TAB 1000 MCG PO (07:53)
[2024-07-19] MEDS: Atorvastatin 40 MG TAB PO (07:53)
[2024-07-19] MEDS: Pantoprazole 40 MG TABCR PO (07:54)
[2024-07-19] MEDS: Normal Saline Flush 10 ML SYR IVP ×2 (07:54→20:47)
[2024-07-19] MEDS: Sertraline 100 MG TAB PO (07:54)
[2024-07-19] MEDS: Folic Acid 1 MG TAB PO (07:54)
[2024-07-19 07:56] LABS: INR 1.6 (0.9-1.1); Prothrombin Time 15.8 sec (9.1-11.1)
--- NOTE | 2024-07-19 08:00 | DI.US_ITS ---
APPROVED REPORT EXAM: Comprehensive 2D, Doppler, and color-flow Echocardiogram Patient Location: In-Patient Room/Bed: 209 Managing Director Atlas: Sanchez [place] RDCS (AE) Indications: CHF Other Information Study Quality: Adequate Conclusion Left ventricular wall thickness and systolic function appears normal Normal right ventricular size and function Both atria are normal in size There is a moderate circumferential pericardial effusion. Organized/fibrinous material is seen withi n the effusion There is no echocardiographic evidence of cardiac tamponade Wall motion 2D Dimensions IVSD d PLAX 0.84 cm F: 0.6-1.0 LVPW d PLAX 0.77 cm F: 0.6 - 1.0 LVID d PLAX 4.37 cm F: 3.8 - 5.2 LVDs 3.40 cm F: 2.2 - 3.5 LV EF Teichholz 44.8 % FS 22.09 % LV EDV (Teich) 86.2 mL LV ESV (Teich) 47.5 mL Stroke Vol Index (Teich) 22.73 Auto EF LV EDV A4C 91.2 mL LV EDV A2C 85.4 mL LV EDV BP 89.2 mL LV ESV A4C 50.2 mL LV ESV A2C 51.4 mL LV ESV BP 50.4 mL LVEF(%) A4C 44.9 % LVEF(%) A2C 39.9 % LVEF(%) BP 43.5 % LV SV A4C 40.9 ml LV SV A2C 34.0 ml LV SV BP 38.8 ml LV CO A4C 5.1 L/min LV CO A2C 3.5 L/min LV CO BP 4.3 L/min HR A4C 125.01 BPM HR A2C 104.05 BPM LV EDV Index (BP) LA Volume LA Length A4C 4.1 cm LA Length A2C LA Area A4C s 7.30 cm2 LA Area A2C s LA Vol A4C A-L 10.98 mL LA Vol A2C A-L LA Vol Biplane A-L LA Vol A4C MOD 10.0 mL LA Vol A2C MOD LA Vol BP MOD RA Volume RA Area A4C 4.3 cm2 RA ESV A4C (A-L) 6.9mL RA Vol/BSA A4C A-L RA Length A4C 2.3 cm RA ESV A4C (MOD) 6.7mL Tricuspid Valve RA Pressure 3.00 mmHg TR Vmax 2.69 m/s TR Peak Grad 28.9 mmHg RVSP (TR) 31.9 mmHg
[2024-07-19] MEDS: AZITHROMYCIN 500 MG in Normal Saline 250 ML 250 MG IVPB (08:21)
--- NOTE | 2024-07-19 08:40 | INITIAL_ITS ---
Date of service: 07/19/24 Time of Service: 08:40 Care Management Initial Assmt Initial Assessment Reason for Hospitalization: sepsis Functional Status/Living Situation Patient Presentation: Kaitlin was sitting up in bed when CM met with her. She had an Oxymask on but it was on her chin and not over her nose. CM adjusted it appropriately. Kaitlin was very confused and her speech was incoherent. She mumbled when questions were asked and did not maintain any eye contact. She appeared quite pale and ill. Kaitlin was admitted yesterday with sepsis with increased confusion. She continues to require supplemental oxygen via OxyMask or nasal cannula at 1- 6L/min. She is tachycardic and tachypneic but her blodd pressure is good and she is afebrile. Town of Residence: [facility] Resides with: Other (SNF) Significant Other/Family: Out of area ([place]) Employment Status: Retired Instrumental Activities of Daily Living (ADLs): Requires support Medications Medication Management: No Issues/Barriers identified Advance Directives Advance Directives: Do you have an Advance Directive: AD On File at [facility]: N 01/05/24 10:40 Date Asked 07/18/24 07/18/24 22:44 AD Date Reviewed COLST On File at [facility] Yes 01/05/24 15:28 COLST Date Scanned 01/05/24 01/05/24 15:28 Code Status Resuscitation Status DNR/DNI Portal Pt does not currently have a portal and education provided: No Portal Education: Other (confused) Insurance Coverage/Financial Issues Insurance: Medicare Care Team Visit Care Team Role Provider Type Jay Jay Villatoro Primary Care Provider NON-[facility] STAFF PHYSICIAN Kp Mustafa MD Emergency Provider [facility] STAFF PHYSICIAN Nakul Shay Admit Provider NON-[facility] STAFF PHYSICIAN Attending Provider Discharge Potential Discharge Needs: Other Anticipated Barriers to Discharge: None Identified Patient/Family Education Needs: Review discharge instructions, discuss Ask Me Three Transportation: RCT Plan: Anticipate Kaitlin will return to [facility] when medically stable. She will follow up with facility providers and plan of care and transport via RCT coordinated by CM. CM will follow and continue to support discharge planning. Social Determinants of Health Screening Will the Patient Participate in the Screening?: Unable to obtain PFSH All Active Problems Vascular dementia (Chronic) Acute hypernatremia (Acute) Sepsis (Acute) UTI (urinary tract infection) (Acute) Hypernatremia (Acute) COPD exacerbation (Acute) Atrial fibrillation with RVR (Acute) Immunosuppression (Acute) Hx of rn long term care use of blood thinners (Acute) Anemia (Chronic) Edentulous (Chronic) Constipation (Acute) Memory dysfunction (Acute) Gastritis (Acute) Esophagitis determined by endoscopy (Acute) Iron deficiency anemia due to chronic blood loss (Chronic) Medical History Endometrial cancer Cardiomyopathy HTN (hypertension) COPD (chronic obstructive pulmonary disease) CAD (coronary artery disease) Atrial fibrillation Rheumatoid arthritis Low left ventricular ejection fraction Pulmonary emboli Surgical History S/P cholecystectomy H/O partial thyroidectomy History of heart artery stent Social History Smoking/Tobacco Use Status: Never Smoking risk assessment performed?: Yes Alcohol Intake: former Drug use: Never Substance use type: does not use Housing: house Do you feel safe at home: Yes Do you feel safe in your relationship?: Yes
[2024-07-19] MEDS: Sucralfate 1 GM TAB PO ×3 (11:29→20:46)
[2024-07-19] MEDS: Normal Saline 1,000 ML 100 ML IV (13:57)
[2024-07-19] MEDS: Acetaminophen 325 MG TAB PO (14:50)
--- NOTE | 2024-07-19 16:11 | PHACLINREV_ITS ---
Pharmacy Admission Review Admission Clinical Review Admission Pharmacy Review: Acute hypernatremia (Acute) Sepsis (Acute) UTI (urinary tract infection) (Acute) Hypernatremia (Acute) COPD exacerbation (Acute) Atrial fibrillation with RVR (Acute) ampicillin Allergy (Unknown, Verified 01/05/24 10:45) Unknown codeine Allergy (Unknown, Verified 01/05/24 10:45) Unknown hydrocodone Allergy (Unknown, Verified 01/05/24 10:45) Unknown metoprolol Allergy (Unknown, Verified 01/05/24 10:45) Unknown morphine Allergy (Unknown, Verified 01/05/24 10:45) Unknown Penicillins Allergy (Unknown, Verified 01/05/24 10:45) Unknown shellfish derived Allergy (Unknown, Verified 01/05/24 10:45) Unknown oyster shell Allergy (Unknown, Uncoded 01/05/24 10:45) Unknown Resuscitation Status DNR/DNI Height 5 ft 3 in Weight 67 kg Pharmacy Admission Review Renal Dosing Renal Dosing: BUN 28 mg/dL (7-18) H 07/19/24 04:34 Creatinine 0.7 mg/dL (0.55-1.02) 07/19/24 04:34 Medications needing adjustments: Reviewed (crcl = 39, current meds ok. monitor for addition of new meds that may need renal dosing) Anticoagulation Anticoagulation: Hgb 7.9 g/dL (11.2-15.7) L 07/19/24 04:34 Hct 29.3 % (36.0-46.0) L 07/19/24 04:34 Plt Count 326 10^3/uL (130-400) 07/19/24 04:34 INR 1.6 (0.9-1.1) H 07/19/24 07:30 Creatinine 0.7 mg/dL (0.55-1.02) 07/19/24 04:34 DVT Prophylaxis: Reviewed (TEDs. VTE prophylaxis contraindication noted in ch art) Therapeutic Anticoagulation: Reviewed Medications: Rivaroxaban (on xarelto 20 mg at home (indication:Afib) currently held (iron deficiency anemia)) Opiate Usage Evaluate Pain Scale/Pains Meds: N/A (not on opiates) Relevant Labs Relevant Labs: Sodium 151 mmol/L (136-145) H 07/19/24 04:34 Potassium 3.3 mmol/L (3.5-5.1) L 07/19/24 04:34 Chloride 113 mmol/L (98-107) H 07/19/24 04:34 Magnesium 1.8 mg/dL (1.8-2.4) 07/19/24 04:34 Electrolytes, C-Reactive P, ESR: Reviewed (lactate = 2.2, WBC = 12.03 (from 10.49 (on steroids)), hgb = 7.9 (from 8.4)) DM Control DM Control: Reviewed (not diabetic) Cardiac Review Cardiac Review: Troponin I 22 ng/L (<or=51) 07/19/24 02:15 NT-Pro-B Natriuret Pep 1982 pg/mL (<300) H 07/19/24 23:06 BP, HR, EF%: Reviewed QTc Review QTc: Reviewed (QTc = 479 07/18/24) IV to PO Switch IV Medications: Reviewed Home Meds Home Med List reviewed: Reviewed Current Meds Current Medication Order Review: Intervened Comments: reported to be having difficulty swallowing whole tablets and capsules, can tolerate crushed with applesauce. Medications adjustments made: tylenol tab switched to liquid, docusate capsule to liquid, protonix tab to esomeprazole packet (actually takes esomeprazole packet at home), slow release iron tabs to liquid, added note to carafate with instructions for how to make administer as a slurry. other meds OK to crush Pharmacy Antibiotic Review Relevant Labs: Relevant Labs 07/19/24 04:34 Procalcitonin 0.19 Pharmacy Antibiotic Activity: Reviewed, no change Comments: azithromycin 500 mg IV + ceftriaxone 1 gm daily (indication: sepsis, COPD exacerbation)
[2024-07-19 18:37] LABS: COVID-19 PCR Negative (Negative); Influenza A PCR Negative (Negative); Influenza B PCR Negative (Negative); RSV PCR Negative (Negative); Source Nasopharynx
[2024-07-19 23:17] LABS: HCT 27.1 % (36.0-46.0); HGB 7.3 g/dL (11.2-15.7); MCH 23.9 pg (27.0-33.0); MCV 89 fL (80-95); MPV 11.9 fL (8.0-11.0); Platelet Count 254 10^3/uL (130-400); RBC 3.06 10^6/uL (3.93-5.22); RDW-SD 63.6 fL
[2024-07-19 23:27] LABS: BUN 28 mg/dL (7-18); CREATININE 0.7 mg/dL (0.55-1.02); Calcium 8.6 mg/dL (8.5-10.1); Chloride 112 mmol/L (98-107); Glucose 134 mg/dL (74-106); Sodium 148 mmol/L (136-145)
[2024-07-19 23:30] LABS: MCHC 26.9 % (32.0-36.0); Potassium 2.6 mmol/L (3.5-5.1)
[2024-07-19 23:31] LABS: RDW 20.1 % (11.7-14.6)
[2024-07-20] VITALS (12 sets, daily range): BP systolic 104–120; BP diastolic 68–82; PULSE 63–111; RESP 2–24; TEMP 36.5–37; O2SAT 90–96
[2024-07-20] MEDS: POTASSIUM CHLORIDE 20 MEQ/100 ML BAG 50 MEQ IV_INF ×2 (00:16→02:43)
[2024-07-20] MEDS: Metoprolol 12.5 MG TAB PO ×4 (01:18→20:13)
[2024-07-20] MEDS: Acetaminophen Solution 650 MG/20.3 ML CUP PO (03:39)
[2024-07-20] MEDS: Albuterol/Ipratropium 3 ML UPD VIAL UPD ×4 (04:16→22:30)
[2024-07-20 07:00] LABS: HCT 25.7 % (36.0-46.0); HGB 7.2 g/dL (11.2-15.7); MCH 24.3 pg (27.0-33.0); MCV 87 fL (80-95); Platelet Count 230 10^3/uL (130-400); RBC 2.96 10^6/uL (3.93-5.22); RDW 20.2 % (11.7-14.6); RDW-SD 62.4 fL; WBC 9.71 10^3/uL (4.4-10.8)
[2024-07-20 07:23] LABS: NT-proBNP 4409 pg/mL (<300)
[2024-07-20 07:25] LABS: ALT 19 U/L (14-59); AST 29 U/L (15-37); Albumin 2.3 g/dL (3.4-5.0); Alkaline Phosphatase 66 U/L (46-116); Anion Gap 6.3 mmol/L (3-11); BUN 29 mg/dL (7-18); Bilirubin, Total 0.38 mg/dL (0.2-1.0); CO2 29.7 mmol/L (21.0-32.0); CREATININE 0.7 mg/dL (0.55-1.02); Calcium 8.6 mg/dL (8.5-10.1); Chloride 113 mmol/L (98-107); Glucose 117 mg/dL (74-106); Magnesium 1.9 mg/dL (1.8-2.4); Potassium 3.5 mmol/L (3.5-5.1); Sodium 149 mmol/L (136-145); Total Protein 6.4 g/dL (6.4-8.2)
[2024-07-20] MEDS: Sucralfate 1 GM TAB PO ×4 (08:34→20:13)
[2024-07-20] MEDS: Atorvastatin 40 MG TAB PO (08:34)
[2024-07-20] MEDS: predniSONE 20 MG TAB 40 MG PO (08:35)
[2024-07-20] MEDS: Folic Acid 1 MG TAB PO (08:35)
[2024-07-20] MEDS: Sertraline 100 MG TAB PO (08:35)
[2024-07-20] MEDS: Cyanocobalamin 500 MCG TAB 1000 MCG PO (08:35)
[2024-07-20] MEDS: AZITHROMYCIN 500 MG in Normal Saline 250 ML 250 MG IVPB (08:36)
[2024-07-20] MEDS: Normal Saline Flush 10 ML SYR IVP ×2 (08:42→20:13)
--- NOTE | 2024-07-20 10:09 | TELEFU_ITS ---
Date of service: 07/20/24 Time of Service: 10:09 Nutrition Note NOTE: Pt who resides at the senior care next door. 84yo femal being treated for acute hypernatremia, UTI, Sepsis, COPD, AFib with RVR, blood loss anemia. Hx of vascular dementia. Has been on clear liquids 2 days now. Glucose labs elevated due to acute medical condition as well as prednisone. Hx of low vitamin D (just above 30 last October). Folic acid on home med list and ordered this admission at 1,000mcg per day. Last folate lab >01 April 2024. B12 levels wnl same date. total protein lab wnl, albumin low. Weight hx trending down with ~4kg loss over the last 4 months. Would recommend vitamin D lab and correct if insufficient. Suggest d/c separate B12 and folic acid supplementation and order Bcomplex with 400mcg folic acid to avoid excessive unmetabolized folate buildup. Will encouraged PO intake, offer ONS as desired for easy nutrition intake.. Will monitor weight, intake, labs. Time Spent in Nutritional Counseling and Treatment: 5 minutes
--- NOTE | 2024-07-20 11:16 | PDOC.CMPRO ---
Date of service: 07/20/24 Time of Service: 11:16 Care Management Progress Note Progress Note Text Progress Note Text: Kaitlin is being treated with steroids and IV ABX due to UTI, Sepsis, COPD, AFib with RVR and blood loss anemia. She is currently lying in bed and appears to be resting comfortably. During interdisciplinary rounds it was identified that family did not want ICU level care, drips etc. Dr. Higgins is reviewing plan of care with family and will consider a Palliative consult if goals of care need to be clarified. Anticipate Kaitlin will discharge back to [facility] when she is well enough to return. CM will follow. Discharge Anticipated Barriers to Discharge: Medical Status Transportation: EMS Plan: Anticipate Kaitlin will return to [facility] when medically stable. She will follow up with facility providers and plan of care. EMS vs. RCT W/C van will be coordinated by CM. CM will follow and continue to support discharge planning. Social Determinants of Health Screening Will the Patient Participate in the Screening?: Unable to obtain
--- NOTE | 2024-07-20 13:08 | PGE_ITS ---
Date of Service Date of service: 07/20/24 Time of Service: 13:08 Assessment and Plan Assessment and plan (1) Severe sepsis: Status: Acute Assessment and plan: - Patient met criteria for severe sepsis on admission with white blood cell count of 12, heart rate in the 120s, respiratory rate in the mid 30s, and source of infection being presumed to combination of community-acquired pneumonia and urinary tract infection and a lactic acid of 2.2 -Repeat lactic was not obtained after admission -Patient was started on ceftriaxone and azithromycin -Follow-up urine and blood culture results -Of note, prolonged discussion was had with the patient's daughter who is her medical decision-maker. Tiffanie understands that her mother is acutely ill and did reiterate that she would not want any extensive measures including intubation, CPR, transferred to the ICU, or prolonged medication drips. She understands that her mom is more fatigued than yesterday, and that if her clinical condition would continue to worsen she states she is open to discussing transition to comfort measures only, as she understands that focusing on her mother's long-term comfort is the primary concern at this time, but she would like to see if we might be able to treat her current medical condition with the above mentioned restrictions. (2) UTI (urinary tract infection): Start date: 07/19/24 Status: Acute Assessment and plan: - As noted above (3) COPD exacerbation: Start date: 07/19/24 Status: Acute Assessment and plan: Patient was initially on aggressive nebulizer treatments with IV Solu-Medrol. -Has since been transitioned to p.o. prednisone (4) Acute hypernatremia: Start date: 07/19/24 Status: Acute Assessment and plan: Monitor with IV hydration and oral hydration as tolerated. (5) Atrial fibrillation with RVR: Start date: 07/19/24 Status: Acute Assessment and plan: -Continue metoprolol split dosing as tolerated. (6) Iron deficiency anemia due to chronic blood loss: Status: Chronic Assessment and plan: Patient did have type and screen and will be transfused if needed. She may need additional Lasix if transfused. This may help for dehydration. Hold aspirin and Xarelto for now. (7) Vascular dementia: Status: Chronic Assessment and plan: Progressive with patient DNR/DNI. (8) Rheumatoid arthritis: Assessment and plan: On outpatient therapy which is immunocompromising. Follow-up blood cultures. Subjective Subjective Interval history since last seen: Patient less verbal as compared to yesterday likely due to significant fatigue, but she does not appear to be in any acute distress. Exam Narrative Exam Narrative: Acute on chronically ill-appearing older female laying in bed, fatigued but does not appear to be in any acute distress, awakens to verbal stimuli but is minimally conversive, heart irregularly irregular with rates in the 120s, lungs clear to auscultation bilaterally, abdomen soft, nontender, nondistended Objective Last Vital Signs Temp 98.6 F 07/20/24 11:28 Pulse 83 07/20/24 11:28 Resp 24 07/20/24 11:28 BP 120/68 07/20/24 11:28 Pulse Ox 90 L 07/20/24 11:28 Laboratory Results - last 24 hr 07/19/24 07/19/24 07/20/24 17:55 23:11 06:50 WBC 8.40 9.71 RBC 3.06 L 2.96 L Hgb 7.3 L 7.2 L Hct 27.1 L 25.7 L MCV 89 87 MCH 23.9 L 24.3 L MCHC 26.9 L 28.0 L RDW 20.1 H 20.2 H Plt Count 254 230 MPV 11.9 H 12.0 H Sodium 148 H 149 H Potassium 2.6 L* 3.5 Chloride 112 H 113 H Carbon Dioxide 30.0 29.7 Anion Gap 6.0 6.3 BUN 28 H 29 H Creatinine 0.7 0.7 Est GFR (CKD-EPI 2020) 86.30 86.30 Glucose 134 H 117 H Calcium 8.6 8.6 Magnesium 1.9 Total Bilirubin 0.38 AST 29 ALT 19 Alkaline Phosphatase 66 NT-Pro-B Natriuret Pep 4409 H Total Protein 6.4 Albumin 2.3 L COVID-19 Source Nasopharynx SARS-CoV-2 (PCR) Negative Influenza Type A (PCR) Negative Influenza Type B (PCR) Negative RSV (PCR) Negative Time Spent with Patient Time Spent with Patient: >50 minutes Time was spent: preparing to see the patient(eg.review tests), obtaining and/or reviewing separately otained hiistory, ordering medications,tests, procedures, referring, communicating with other health critical care technician, indepentently interpreting results, counseling the patient and care coordination
--- NOTE | 2024-07-20 16:51 | CHAPLAIN ---
Kaitlin was responded to my voice when I spoke to her. I brought her in a prayer shawl, and she said she like the color. She didn't stay awake much after that. I introduced myself, explained my role and offered support.
[2024-07-20] MEDS: Normal Saline 1,000 ML 100 ML IV (23:34)
[2024-07-20] MEDS: cefTRIAXone 1 GM/50 ML BAG IVPB (23:35)
[2024-07-21] VITALS (14 sets, daily range): BP systolic 90–123; BP diastolic 60–76; PULSE 80–112; RESP 2–22; TEMP 36.1–37.2; O2SAT 89–99
[2024-07-21] MEDS: Metoprolol 12.5 MG TAB PO ×4 (01:52→20:23)
[2024-07-21] MEDS: Albuterol/Ipratropium 3 ML UPD VIAL UPD ×4 (03:50→21:45)
[2024-07-21 06:55] LABS: HCT 27.1 % (36.0-46.0); HGB 7.2 g/dL (11.2-15.7); MCH 23.7 pg (27.0-33.0); MCHC 26.6 % (32.0-36.0); MCV 89 fL (80-95); MPV 11.9 fL (8.0-11.0); Platelet Count 254 10^3/uL (130-400); RBC 3.04 10^6/uL (3.93-5.22); RDW 19.9 % (11.7-14.6); RDW-SD 63.2 fL; WBC 12.11 10^3/uL (4.4-10.8)
[2024-07-21 07:18] LABS: ALT 30 U/L (14-59); AST 49 U/L (15-37); Albumin 2.2 g/dL (3.4-5.0); Alkaline Phosphatase 70 U/L (46-116); Anion Gap 3.9 mmol/L (3-11); BUN 24 mg/dL (7-18); Bilirubin, Total 0.32 mg/dL (0.2-1.0); CO2 30.1 mmol/L (21.0-32.0); CREATININE 0.6 mg/dL (0.55-1.02); Calcium 8.3 mg/dL (8.5-10.1); Chloride 115 mmol/L (98-107); Estimated GFR 89.56 (mL/min/1.73m2); Glucose 106 mg/dL (74-106); Magnesium 1.9 mg/dL (1.8-2.4); Potassium 3.2 mmol/L (3.5-5.1); Sodium 149 mmol/L (136-145); Total Protein 6.1 g/dL (6.4-8.2)
[2024-07-21] MEDS: AZITHROMYCIN 500 MG in Normal Saline 250 ML 250 MG IVPB (08:44)
[2024-07-21] MEDS: predniSONE 20 MG TAB 40 MG PO (08:45)
[2024-07-21] MEDS: Sucralfate 1 GM TAB PO ×4 (08:45→20:23)
[2024-07-21] MEDS: Folic Acid 1 MG TAB PO (08:45)
[2024-07-21] MEDS: Atorvastatin 40 MG TAB PO (08:45)
[2024-07-21] MEDS: Cyanocobalamin 500 MCG TAB 1000 MCG PO (08:45)
[2024-07-21] MEDS: Sertraline 100 MG TAB PO (08:45)
[2024-07-21] MEDS: Normal Saline Flush 10 ML SYR IVP ×2 (08:46→20:23)
[2024-07-21] MEDS: Acetaminophen Solution 650 MG/20.3 ML CUP PO ×2 (09:23→20:23)
[2024-07-21] MEDS: Potassium Chloride Liquid 20 MEQ PKT 40 MEQ PO (10:37)
--- NOTE | 2024-07-21 16:09 | W.PM.PROGNOT ---
Date of Service Date of service: 07/21/24 Time of Service: 16:09 Assessment and Plan Assessment and plan (1) Severe sepsis: Status: Acute Assessment and plan: - Patient met criteria for severe sepsis on admission with white blood cell count of 12, heart rate in the 120s, RR 30s, and source of infection being presumed urinary tract infection and a lactic acid of 2.2 -Patient was started on ceftriaxone, culutres confirm e. coli x 2 that are sensitive. -Clinically she is stable but hasn't turned the corner despite appropriate antibiotics. WBC increasing. Consider repeat lactate, abdominal imaging if not improving. (2) UTI (urinary tract infection): Start date: 07/19/24 Status: Acute Assessment and plan: - Growing sensitive e. coli as above, ceftriaxone. (3) COPD exacerbation: Start date: 07/19/24 Status: Acute Assessment and plan: Patient was initially on aggressive nebulizer treatments with IV Solu-Medrol, azithromycin -Has since been transitioned to p.o. prednisone and bronchodilators. (4) Acute hypernatremia: Start date: 07/19/24 Status: Acute Assessment and plan: Likely secondary to some diminished mental status and limited oral fluids. Stop NS. Encourage oral hydration and use D5 if not improving. (5) Atrial fibrillation with RVR: Start date: 07/19/24 Status: Acute Assessment and plan: -Continue metoprolol split dosing as tolerated. (6) Iron deficiency anemia due to chronic blood loss: Status: Chronic Assessment and plan: Patient did have type and screen and will be transfused if needed, though h/h stable for now. She may need additional Lasix if transfused. Holding aspirin and Xarelto for now. (7) Vascular dementia: Status: Chronic Assessment and plan: Progressive with patient DNR/DNI. (8) Rheumatoid arthritis: Assessment and plan: On outpatient therapy which is immunocompromising. . (9) Goals of care, counseling/discussion: Status: Acute Assessment and plan: Of note, prolonged discussion was had with the patient's daughter who is her medical decision-maker. Tiffanie understands that her mother is acutely ill and did reiterate that she would not want any extensive measures including intubation, CPR, transferred to the ICU, or prolonged medication drips. She understands that her mom is continues to be quite sick. At this point, Tiffanie would like to continue treatment rather than transition to comfort measures only. Focusing on her mother's long-term comfort continues to be the primary concern at this time. (10) DVT prophylaxis: Status: Acute Assessment and plan: SCDs as holding her DOAC Subjective Subjective Patient reports: no new complaints; denies vomiting Interval history since last seen: Patient minimally verbal. Per daughter she looks about the same. Her daughter Tiffanie confirms that she would want IV antibiotics but not intubation, CPR, or aggressive ICU care. Tiffanie feels like she did have some quality of life at the rehab so she isn't ready for full CHILDREN'S ATTENDANT right now if there is a chance she will improve. She is taking some oral fluids. Exam Narrative Exam Narrative: Acute on chronically ill-appearing older female laying in bed, fatigued but does not appear to be in acute distress, awakens to verbal stimuli but is minimally conversive, heart irregularly irregular with rates in the 110s, lungs with diffuse expiratory rhonchi, no focal rales, abdomen soft, nontender, nondistended. Extremities warm, trace luli edema. Objective Last Vital Signs Temp 36.7 C 07/21/24 15:45 Pulse 106 H 07/21/24 15:59 Resp 18 07/21/24 15:59 BP 90/62 L 07/21/24 15:45 Pulse Ox 93 07/21/24 15:59 Laboratory Results - last 24 hr 07/21/24 06:25 WBC 12.11 H RBC 3.04 L Hgb 7.2 L Hct 27.1 L MCV 89 MCH 23.7 L MCHC 26.6 L RDW 19.9 H Plt Count 254 MPV 11.9 H Sodium 149 H Potassium 3.2 L Chloride 115 H Carbon Dioxide 30.1 Anion Gap 3.9 BUN 24 H Creatinine 0.6 Est GFR (CKD-EPI 2020) 89.56 Glucose 106 Calcium 8.3 L Magnesium 1.9 Total Bilirubin 0.32 AST 49 H ALT 30 Alkaline Phosphatase 70 Total Protein 6.1 L Albumin 2.2 L Time Spent with Patient Time Spent with Patient: 35-49 minutes Time was spent: preparing to see the patient(eg.review tests), obtaining and/or reviewing separately otained hiistory, ordering medications,tests, procedures, referring, communicating with other health critical care clinical nurse specialist, indepentently interpreting results, counseling the patient and care coordination
[2024-07-21] MEDS: Midodrine 2.5 MG TAB PO (20:23)
[2024-07-21] MEDS: cefTRIAXone 1 GM/50 ML BAG IVPB (23:53)
[2024-07-22] MEDS: Metoprolol 12.5 MG TAB PO ×2 (01:01→08:12)
[2024-07-22 03:54] VITALS: PULSE 97; RESP 20; RESP 3; RESP 5; RESP 7; RESP 9; O2SAT 89
[2024-07-22] MEDS: Albuterol/Ipratropium 3 ML UPD VIAL UPD (03:54)
[2024-07-22 04:03] VITALS: PULSE 110; RESP 22; RESP 3; RESP 7; RESP 9; O2SAT 90
[2024-07-22 06:10] LABS: Lactate 1.1 mmol/L (<or=2.0)
[2024-07-22 06:11] LABS: Abs Immature Grans 0.34 10^3/uL (0.0-0.06); Absolute Lymphocyte Count 0.58 10^3/uL (1.2-3.4); Absolute Monocyte Count 0.48 10^3/uL (0.1-0.8); Absolute Neutrophil Count 11.15 10^3/uL (1.2-6.7); Basophils % 0.2 %; HCT 28.8 % (36.0-46.0); HGB 7.5 g/dL (11.2-15.7); Immature Grans % 2.7 %; Lymphocytes % 4.6 %; MCH 23.9 pg (27.0-33.0); MCV 92 fL (80-95); MPV 11.9 fL (8.0-11.0); Monocytes % 3.8 %; Neutrophils % 88.7 %; Nucleated RBC 0.3 % (0.0-0.3); Platelet Count 252 10^3/uL (130-400); RBC 3.14 10^6/uL (3.93-5.22); RDW 19.9 % (11.7-14.6); RDW-SD 65.1 fL; WBC 12.57 10^3/uL (4.4-10.8)
[2024-07-22 06:12] LABS: Absolute Basophil Count 0.03 10^3/uL (0.0-0.2)
[2024-07-22 06:25] LABS: Anion Gap 7.8 mmol/L (3-11); BUN 24 mg/dL (7-18); CO2 29.2 mmol/L (21.0-32.0); CREATININE 0.6 mg/dL (0.55-1.02); Calcium 8.7 mg/dL (8.5-10.1); Chloride 117 mmol/L (98-107); Estimated GFR 89.56 (mL/min/1.73m2); Glucose 109 mg/dL (74-106); Potassium 3.7 mmol/L (3.5-5.1); Sodium 154 mmol/L (136-145)
--- NOTE | 2024-07-22 07:26 | NUR.NOTE ---
Nursing Note:PLUNGER MACHINE OPERATOR altered RN that patient was crying stating im dying, RN went in to assess patient.
[2024-07-22 07:34] VITALS: BP 114/84; PULSE 117; RESP 28; TEMP 36.6; O2SAT 90
[2024-07-22 07:56] VITALS: PULSE 122; RESP 18; RESP 3; RESP 6; RESP 8; O2SAT 94
[2024-07-22] MEDS: Albuterol 2.5 MG/3 ML INH SOLN VIAL UPD (07:56)
[2024-07-22 07:57] VITALS: O2SAT 93
[2024-07-22 08:03] VITALS: O2SAT 93
[2024-07-22] MEDS: AZITHROMYCIN 500 MG in Normal Saline 250 ML 250 MG IVPB (08:11)
[2024-07-22] MEDS: Normal Saline Flush 10 ML SYR IVP ×3 (08:12→18:05)
[2024-07-22] MEDS: Midodrine 2.5 MG TAB PO (08:12)
[2024-07-22] MEDS: Sertraline 100 MG TAB PO (08:12)
[2024-07-22] MEDS: predniSONE 20 MG TAB 40 MG PO (08:12)
[2024-07-22] MEDS: Cyanocobalamin 500 MCG TAB 1000 MCG PO (08:12)
[2024-07-22] MEDS: Folic Acid 1 MG TAB PO (08:12)
[2024-07-22] MEDS: Sucralfate 1 GM TAB PO (08:12)
[2024-07-22] MEDS: Atorvastatin 40 MG TAB PO (08:12)
[2024-07-22] MEDS: LORazepam 2 MG/ML VIAL 0.5 MG IVP (08:40)
[2024-07-22] MEDS: Furosemide 20 MG/2 ML VIAL IVP (09:18)
[2024-07-22] MEDS: fentaNYL 100 MCG/2 ML VIAL 50 MCG IVP ×4 (09:18→12:30)
--- NOTE | 2024-07-22 09:43 | PGE_ITS ---
Date of Service Date of service: 07/22/24 Time of Service: 09:43 Assessment and Plan Assessment and plan (1) Severe sepsis: Status: Acute Assessment and plan: - Patient met criteria for severe sepsis on admission with white blood cell count of 12, heart rate in the 120s, RR 30s, and source of infection being presumed urinary tract infection and a lactic acid of 2.2 -Patient was started on ceftriaxone, cultures confirm e. coli x 2 that are sensitive. -Clinically she is stable but hasn't turned the corner despite appropriate antibiotics. WBC increasing, though lactate normalized. -Given goals of care, not improving with antibiotics and other interventions within goals of care, I talked to daughter Tiffanie Leos today and we are transitioning to JOGGLE PRESS OPERATOR status. (2) UTI (urinary tract infection): Start date: 07/19/24 Status: Acute Assessment and plan: - Growing sensitive e. coli as above, treated with ceftriaxone. Stopping now that JOGGLE PRESS OPERATOR status. (3) COPD exacerbation: Start date: 07/19/24 Status: Acute Assessment and plan: Patient was initially on aggressive nebulizer treatments with IV Solu-Medrol, azithromycin -Has since been transitioned to p.o. prednisone and bronchodilators. -Can continue oxygen and bronchodilators for comfort. (4) Acute hypernatremia: Start date: 07/19/24 Status: Acute Assessment and plan: Likely secondary to some diminished mental status and limited oral fluids. Stopped NS, given 250ml bolus of D5 this morning, but now JOGGLE PRESS OPERATOR. (5) Atrial fibrillation with RVR: Start date: 07/19/24 Status: Acute Assessment and plan: -Continue metoprolol for symptoms only (6) Iron deficiency anemia due to chronic blood loss: Status: Chronic Assessment and plan: Patient did have type and screen and will be transfused if needed, though h/h stable for now. She may need additional Lasix if transfused. Holding aspirin and Xarelto for now. (7) Rheumatoid arthritis: Assessment and plan: On outpatient therapy which is immunocompromising. . (8) Goals of care, counseling/discussion: Status: Acute Assessment and plan: Of note, prolonged discussion was had with the patient's daughter on admission who is her medical decision-maker. Tiffanie understands that her mother is acutely ill and did reiterate that she would not want any extensive measures including intubation, CPR, transferred to the ICU, or prolonged medication drips. As of 07/22 she was not improving clinically with IV antibiotics, we decided to transition to JOGGLE PRESS OPERATOR status. Subjective Subjective Patient reports: denies vomiting or fever Interval history since last seen: 24 hr events: 3+ loose stools overnight, c. diff negative Per RN, patient looks more uncomfortable, still tachycardic. Told RN I'm dying. She hasn't been eating or drinking much, unable to take pills this morning even crushed as less awake. Exam Narrative Exam Narrative: Acute on chronically ill-appearing older female laying in bed, fatigued appearing and some respiratory distress, awakens to verbal stimuli but is minimally conversive, heart irregularly irregular with rates in the 110s-120s, lungs with diffuse expiratory rhonchi, more diminished on right, abdomen soft, nontender, nondistended. Extremities warm, 1+ luli edema, not pitting. Objective Last Vital Signs Temp 36.6 C 07/22/24 07:34 Pulse 122 H 07/22/24 07:56 Resp 18 07/22/24 07:56 BP 114/84 07/22/24 07:34 Pulse Ox 93 07/22/24 08:03 Laboratory Results - last 24 hr 07/22/24 06:05 WBC 12.57 H RBC 3.14 L Hgb 7.5 L Hct 28.8 L MCV 92 MCH 23.9 L MCHC 26.0 L RDW 19.9 H Plt Count 252 MPV 11.9 H Immature Gran % 2.7 Neutrophils % 88.7 Lymphocytes % 4.6 Monocytes % 3.8 Eosinophils % 0.0 Basophils % 0.2 Nucleated RBC % 0.3 Absolute Neutrophils 11.15 H Absolute Lymphocytes 0.58 L Absolute Monocytes 0.48 Absolute Eosinophils 0.00 Absolute Basophils 0.03 VBG Lactate 1.1 Sodium 154 H Potassium 3.7 Chloride 117 H Carbon Dioxide 29.2 Anion Gap 7.8 BUN 24 H Creatinine 0.6 Est GFR (CKD-EPI 2020) 89.56 Glucose 109 H Calcium 8.7 Time Spent with Patient Time Spent with Patient: 35-49 minutes Time was spent: preparing to see the patient(eg.review tests), obtaining and/or reviewing separately otained hiistory, ordering medications,tests, procedures, referring, communicating with other health home health care case manager, indepentently interpreting results, counseling the patient and care coordination
[2024-07-22] MEDS: LORazepam 2 MG/ML VIAL IV/SC ×3 (10:35→18:04)
--- NOTE | 2024-07-22 11:54 | NUR.NOTE ---
Nursing Note: [phone] Tiffanie Daughter, Left Vm to call back regarding update on patient condition and change of medication
--- NOTE | 2024-07-22 11:59 | NUR.NOTE ---
Nursing Note: RN spoke with Daughter who states that patients preferred home would be [facility] out of [place], daughter unable to come in and see patient as she has no ride. RN notified daughter of transition from IVP meds to continuos fentanyl drip for comfort, daughter is okay with it. YESSICA ALVAREZ
--- NOTE | 2024-07-22 12:34 | CHAPLAIN ---
I was called in to visit with Kaitlin and her family as she has been changed to comfort measures. Her family is not be able to come. Kaitlin is not responsive but appears to be comfortable. Care Management arranged for Fr Sierra to visit for last rites at Kaitlin's daughter's request.
--- NOTE | 2024-07-23 13:26 | EXPE_ITS ---
Date of service: 07/23/24 Time of Service: 13:27 Discharge Plan Disposition Condition: Poor Discharge Details Reason For Visit: Sepsis,Atrial fibrillation with RVR Hypernatremia, Admit Date/Time: 07/19/24 01:53 Admit Provider: Nakul Shay Attending Provider: Nakul Shay Primary Care Provider: Jay Jay Villatoro Hospital Course Hospital Course: 84 year old female with h/o dementia, COPD, resident of [facility], admitt ed 07/19/24 with sepsis picture (UTI vs pneumonia) along with COPD exacerbation, A-fib/RVR and hypernatremia. Patient started empirically on Rocephin and Zithromax, COPD treated with combination of nebs and steroids, rate control with beta sy, and gentle hydration. Urine cultures eventually grew out sensitive E.coli. Despite appropriate antibiotics patient's condition continued to deteriorate and on hospital day 4, in consultation with patient's daughter (POA) it was decided to transition care to comfort measures only. Patient placed on fentanyl infusion and on the night of hospital day 4 patient peacefully. Home Meds and New Rx's Prescriptions: No Action acetaminophen 325 mg capsule 650 mg PO Q4H PRN aspirin [Adult Aspirin Regimen] 81 mg tablet,delayed release (DR/EC) 81 mg PO DAILY atorvastatin 40 mg tablet 40 mg PO DAILY ergocalciferol (vitamin D2) [Drisdol] 1,250 mcg (50,000 unit) capsule 50,000 unit PO QWEEK bisacodyl 10 mg suppository 10 mg [place] DAILY PRN Enema 19-7 gram/118 mL enema 118 ml [place] DAILY PRN folic acid 1 mg tablet 1,000 mcg PO DAILY furosemide 20 mg tablet 20 mg PO DAILY metoprolol succinate 25 mg tablet extended release 24 hr 25 mg PO DAILY magnesium hydroxide [Milk of Magnesia] 400 mg/5 mL suspension 5 ml PO DAILY PRN polyethylene glycol 3350 [ClearLax] 17 gram/dose powder 4.25 g PO ONCE rivaroxaban 20 mg tablet 20 mg PO DAILY Rx Instructions: must administer with evening meal cyanocobalamin (vitamin B-12) 1,000 mcg capsule 1,000 mcg PO DAILY methotrexate sodium 2.5 mg tablet 7.5 mg PO .WEEKLY sertraline 100 mg tablet 100 mg PO DAILY sertraline 50 mg tablet 50 mg PO DAILY docusate sodium [Colace] 100 mg Capsule 100 mg PO DAILY Qty: 30 0RF Slow Release Iron 140 mg (45 mg iron) Tablet Extended Release 142 mg PO DAILY Qty: 30 0RF sucralfate 1 gram Tablet 1 g PO AC & HS Qty: 120 0RF midodrine 2.5 mg tablet 2.5 mg PO BID Rx Instructions: Hold if SBP is over 130. nitroglycerin 0.4 mg tablet, sublingual 0.4 mg sublingual Q5M PRN Rx Instructions: do not exceed 3 doses per episode esomeprazole magnesium [address] for susp in packet 20 mg PO DAILY Discharge Data Discharge Date/Time-TO BE ENTERED AT DEPARTURE: 07/23/24 01:12 Discharge Sum: Prov Provider Consults: 07/22/24 08:51 Bin Tripper Operator Consult [CONS] Stat Consultation Status:: Contact made by Clarification:: Manage/follow per spec. Reason for consult:: Baptism, would like last rites/anointing of sick Discharge Sum: Diag Contributing Factors (1) Severe sepsis: (2) UTI (urinary tract infection): (3) COPD exacerbation: (4) Acute hypernatremia: (5) Atrial fibrillation with RVR: (6) Iron deficiency anemia due to chronic blood loss: (7) Rheumatoid arthritis: (8) Goals of care, counseling/discussion:
--- NOTE | 2024-07-23 13:36 | W.PM.DS.N ---
Date of service: 07/23/24 Time of Service: 13:36 DS: Diagnosis Discharge Diagnosis (1) Severe sepsis: Status: Acute (2) UTI (urinary tract infection): Status: Acute (3) COPD exacerbation: Status: Acute (4) Acute hypernatremia: Status: Acute (5) Atrial fibrillation with RVR: Status: Acute (6) Iron deficiency anemia due to chronic blood loss: Status: Chronic (7) Rheumatoid arthritis: (8) Goals of care, counseling/discussion: Status: Acute Discharge Plan Disposition Condition: Poor Discharge Details Reason For Visit: Sepsis,Atrial fibrillation with RVR Hypernatremia, Admit Date/Time: 07/19/24 01:53 Admit Provider: Nakul Shay Attending Provider: Nakul Shay Primary Care Provider: Jay Jay Villatoro Hospital Course Hospital Course: 84 year old female with h/o dementia, COPD, resident of [facility], admitted 07/19/24 with sepsis picture (UTI vs pneumonia) along with COPD exacerbation, A-fib/RVR and hypernatremia. Patient started empirically on Rocephin and Zithromax, COPD treated with combination of nebs and steroids, rate control with beta sy, and gentle hydration. Urine cultures eventually grew out sensitive E.coli. Despite appropriate antibiotics patient's condition continued to deteriorate and on hospital day 4, in consultation with patient's daughter (POA) it was decided to transition care to comfort measures only. Patient placed on fentanyl infusion and on the night of hospital day 4 patient peacefully. Home Meds and New Rx's Prescriptions: No Action acetaminophen 325 mg capsule 650 mg PO Q4H PRN aspirin [Adult Aspirin Regimen] 81 mg tablet,delayed release (DR/EC) 81 mg PO DAILY atorvastatin 40 mg tablet 40 mg PO DAILY ergocalciferol (vitamin D2) [Drisdol] 1,250 mcg (50,000 unit) capsule 50,000 unit PO QWEEK bisacodyl 10 mg suppository 10 mg [place] DAILY PRN Enema 19-7 gram/118 mL enema 118 ml [place] DAILY PRN folic acid 1 mg tablet 1,000 mcg PO DAILY furosemide 20 mg tablet 20 mg PO DAILY metoprolol succinate 25 mg tablet extended release 24 hr 25 mg PO DAILY magnesium hydroxide [Milk of Magnesia] 400 mg/5 mL suspension 5 ml PO DAILY PRN polyethylene glycol 3350 [ClearLax] 17 gram/dose powder 4.25 g PO ONCE rivaroxaban 20 mg tablet 20 mg PO DAILY Rx Instructions: must administer with evening meal cyanocobalamin (vitamin B-12) 1,000 mcg capsule 1,000 mcg PO DAILY methotrexate sodium 2.5 mg tablet 7.5 mg PO .WEEKLY sertraline 100 mg tablet 100 mg PO DAILY sertraline 50 mg tablet 50 mg PO DAILY docusate sodium [Colace] 100 mg Capsule 100 mg PO DAILY Qty: 30 0RF Slow Release Iron 140 mg (45 mg iron) Tablet Extended Release 142 mg PO DAILY Qty: 30 0RF sucralfate 1 gram Tablet 1 g PO AC & HS Qty: 120 0RF midodrine 2.5 mg tablet 2.5 mg PO BID Rx Instructions: Hold if SBP is over 130. nitroglycerin 0.4 mg tablet, sublingual 0.4 mg sublingual Q5M PRN Rx Instructions: do not exceed 3 doses per episode esomeprazole magnesium [address] for susp in packet 20 mg PO DAILY Discharge Data Discharge Date/Time-TO BE ENTERED AT DEPARTURE: 07/23/24 01:12 DS: Summary Time Spent with Patient providing and/or coordinating discharge services: Less than 30 minutes Status at Discharge Functional status at discharge: bed bound Overall status at discharge: other Mental Status: other () Speech and Movement: other () Mood: other () Affect: other Quality:SDOH Health Related Social Needs: No Data to Display Exam Psych Mental Status: other () Speech and Movement: other () Mood: other () Affect: other DS: Data Vitals/I&O Vitals and I&O: Vital Signs Temperature 36.6 C 07/22/24 07:34 Temperature Source Temporal Artery Scan 07/22/24 07:34 Pulse 122 H 07/22/24 07:56 Pulse Rhythm Irregular 07/19/24 06:59 Pulse 125 H 07/19/24 01:31 Respiratory Rate 18 07/22/24 07:56 Respiratory Effort Labored, Accessory Muscle Use 07/19/24 06:59 Respiratory Depth Retractive 07/19/24 01:06 Respiratory Pattern Tachypnea 07/19/24 06:59 Blood Pressure 114/84 07/22/24 07:34 Blood Pressure Mean 89 07/19/24 01:30 Blood Pressure Position Supine 07/19/24 01:06 Pulse Oximetry 93 07/22/24 08:03 Oxygen Delivery Method OxyMask 07/22/24 08:03 Oxygen Flow Rate 6 07/22/24 08:03 Pain Level 0 07/22/24 07:34 Intake & Output 07/22/24 07/23/24 07/23/24 23:59 11:59 23:59 Intake Total 83.744 / 743.744 Output Total 500 / 1500 Balance -416.256 / -756.256 Intake: IV 83.744 / 383.744 Output: Urine 500 / 1500 Other: Urine Color Pale Yellow Urine Appearance Clear PFSH All Active Problems (Updated 07/23/24 @ 13:35 by Nakul Weir MD) DVT prophylaxis (Acute) Goals of care, counseling/discussion (Acute) Severe sepsis (Acute) Vascular dementia (Chronic) Acute hypernatremia (Acute) Sepsis (Acute) UTI (urinary tract infection) (Acute) Hypernatremia (Acute) COPD exacerbation (Acute) Atrial fibrillation with RVR (Acute) Immunosuppression (Acute) Hx of terminal 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 operator use of blood 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 (Acute) Anemia (Chronic) Edentulous (Chronic) Constipation (Acute) Memory dysfunction (Acute) Gastritis (Acute) Esophagitis determined by endoscopy (Acute) Iron deficiency anemia due to chronic blood loss (Chronic) Medical History Endometrial cancer Cardiomyopathy HTN (hypertension) COPD (chronic obstructive pulmonary disease) CAD (coronary artery disease) Atrial fibrillation Rheumatoid arthritis Low left ventricular ejection fraction Pulmonary emboli Surgical History S/P cholecystectomy H/O partial thyroidectomy History of heart artery stent Social History Smoking/Tobacco Use Status: Never Smoking risk assessment performed?: Yes Alcohol Intake: former Drug use: Never Substance use type: does not use Housing: house Do you feel safe at home: Yes Do you feel safe in your relationship?: Yes Time Spent with Patient Time Spent with Patient: <45 minutes Time was spent: other (chart review)
== END 2024-07-22 20:55 | disposition expired | DRG 872 ==
LOC: ER 07-19 01:26 → MS 07-19 03:20
PROVIDERS: Family Medicine; Admitting Provider Family Medicine; Emergency Provider Emergency Medicine; PCP Family Medicine; Visit Provider Family Medicine
DX: A41.9 Sepsis, unspecified organism (principal); N30.01 Acute cystitis with hematuria; J44.1 Chronic obstructive pulmonary disease with (acute) exacerbation; E87.0 Hyperosmolality and hypernatremia; I42.9 Cardiomyopathy, unspecified; Z51.5 Encounter for palliative care; I48.91 Unspecified atrial fibrillation; D50.0 Iron deficiency anemia secondary to blood loss (chronic); R65.20 Severe sepsis without septic shock; Z66 Do not resuscitate; I50.9 Heart failure, unspecified; R19.7 Diarrhea, unspecified; F01.50 Vascular dementia, unspecified severity, without behavioral disturbance, psychotic disturbance, mood disturbance, and anxiety; Z79.01 Long term (current) use of anticoagulants; I25.10 Atherosclerotic heart disease of native coronary artery without angina pectoris; Z95.5 Presence of coronary angioplasty implant and graft; Z79.82 Long term (current) use of aspirin; M06.9 Rheumatoid arthritis, unspecified; Z79.631 Long term (current) use of antimetabolite agent; B96.20 Unspecified Escherichia coli [E. coli] as the cause of diseases classified elsewhere
CPT/HCPCS: 00123; 36415; 51701; 76942; 80048; 80053; 82805; 83690; 84145; 85027; 86850; 86900; 86901; 87077; 87493; 87637; 87641; 93005; 93306; 93308; 94640; 94761; 96361; 96365; 96375; 96376; 99291; 36410; 71045; 81003; 81015; 82272; 83605; 83735; 83880; 84443; 84484; 85025; 85610; 87086; 87186; 93010; 94664; 94760; 99223; 99233; J0456; J0696; J1940; J1941; J2060; J2919; J3010; J3480; J3490; J7512; J7613; J7620